=== PATIENT | male | born 1960 | race Caucasian/White ===

== ENCOUNTER 2017-04-13 19:54 | Emergency (ER) | payer BC, SELFPAY ==
[2017-04-13 20:48] VITALS: BP 119/75; PULSE 98; RESP 18; TEMP 37.7; O2SAT 96; BMI 29.1
--- NOTE | 2017-04-13 20:53 | HMH.EDUTC ---
[facility] [place] Impression: Fever in adult, Influenza Disposition: Home, Self-Care Condition on Discharge: Good Instructions: DI for Fever (Symptom) -- Adult, Influenza Additional Instructions: ? Start Tamiflu today if you are going to take it. Discussed risk and possible benefits. ? Lots of rest ? Increase Fluids water, Gatorade, powerade, pedialyte,if infant/toddler/child ? Alternate Tylenol and / or ibuprofen as discussed for fever, aches, chills x 24 hours without medication for symptoms ? Follow up IMMEDIATELY for new or worsening Symptoms OR no noticeable improvement over the next 48-72 hours, 911 for difficulty or breathing ? You or your child area contagious until no fever, aches, chills for 24 hours with medication for symptoms Prescriptions: Dextromethorphan Polistirex [Delsym] 10 ml PO Q12H PRN #200 stew.[email or web address] PRN Reason: Cough Oseltamivir Phosphate [Tamiflu 75mg Capsule] 75 mg PO BID #10 capsule Referrals: Eduardo Daly MD [Primary Care Provider] - Time of Disposition: 21:05 Medical Decision Making Vital Signs: 04/13/17 20:48 Temperature 99.8 F H Temperature Source Temporal Artery Scan Pulse Rate [Left Brachial] 98 H Respiratory Rate 18 Blood Pressure [Left Arm] 119/75 Blood Pressure Mean [Left Arm] 89 Blood Pressure Source [Left Arm] Automatic Cuff Blood Pressure Position [Left Arm] Sitting 02 Sat by Pulse Oximetry 96 Oxygen Delivery Method Room Air - Tarik Inquiry Pt receiving controlled substance: No Tarik was queried for this patient: No [facility] [place] - General Stated complaint: Fever, Body Aches Mode of Arrival: Ambulatory Source of Information: Patient Limitations: No Limitations Description of Symptoms (Recalled from Triage Doc. by RN): C/O SORE THROAT AND FEVER HEENT Symptoms (Recalled from RN notes): Yes (SORE THROAT) Resp Symptoms (Recalled from RN notes): No Skin Symptoms (Recalled from RN notes): No MS Symptoms (Recalled from RN notes): No Functional Status (Recalled from RN notes): N/A - History of Present Illness Provider Complaint: Patient states that he woke up this morning having fever, sore throat and body aches States that he went on to work and as the day went on his fever continued to get higher and was 103.2 at about 3pm and he took Tylenol State that he laid down and began having body aches and feeling worse and fever returned so he came in to get checked - Related Data Home Medications Medication Instructions Recorded Confirmed losartan 50 mg tablet 50 mg PO QDAY 04/12/17 mesalamine 800 mg tablet,delayed PO .Q24 tab 04/12/17 release metformin 500 mg tablet 500 mg PO QDAY tab 04/12/17 Previous Rx's Medication Instructions Recorded Dextromethorphan Polistirex 10 ml PO Q12H PRN #200 stew.er.12h 04/13/17 [Delsym] Oseltamivir Phosphate [Tamiflu 75 mg PO BID #10 cap 04/13/17 75mg Capsule] Allergies Allergy/AdvReac Type Severity Reaction Status Date / Time Penicillins [PENICILLINS] Allergy Mild Unverified 03/22/17 14:58 - Worker's Comp Is this a Worker's Comp case?: No [facility] History I have reviewed the patient's past medical history: Yes Medical History: Reports:: Diabetes Mellitus Type 2, Kidney Stones Amputation: No Fractures: No - *Social History Smoking Status: Never smoker Alcohol Intake: never Occupational Status: employed Housing: house Household Members: spouse - Psychiatric History Expresses thoughts of harming self/others: None Suicide Plan Description: No Plan ROS Obtained: Yes All systems reviewed & no additional complaints - Constitutional Constitutional: Reports chills, Reports fever(s) - ENT Ears, Nose, Mouth, and Throat: Reports sinus pain - Respiratory Respiratory: Yes cough Physical Exam - General General appearance: alert, in no apparent distress - Expanded ENT Exam Comment: throat red, irritated, no exudate noted - Respiratory Respiratory exam: Present: normal lung
--- NOTE | 2017-04-13 20:56 | ED_ITS ---
[facility] [place] Impression: Fever in adult, Influenza Disposition: Home, Self-Care Condition on Discharge: Good Instructions: DI for Fever (Symptom) -- Adult, Influenza Additional Instructions: ? Start Tamiflu today if you are going to take it. Discussed risk and possible benefits. ? Lots of rest ? Increase Fluids water, Gatorade, powerade, pedialyte,if infant/toddler/child ? Alternate Tylenol and / or ibuprofen as discussed for fever, aches, chills x 24 hours without medication for symptoms ? Follow up IMMEDIATELY for new or worsening Symptoms OR no noticeable improvement over the next 48-72 hours, 911 for difficulty or breathing ? You or your child area contagious until no fever, aches, chills for 24 hours with medication for symptoms Prescriptions: Dextromethorphan Polistirex [Delsym] 10 ml PO Q12H PRN #200 stew.er.12h PRN Reason: Cough Oseltamivir Phosphate [Tamiflu 75mg Capsule] 75 mg PO BID #10 capsule Referrals: Eduardo Daly MD [Primary Care Provider] - Time of Disposition: 21:05 Medical Decision Making Vital Signs: 04/13/17 20:48 Temperature 99.8 F H Temperature Source Temporal Artery Scan Pulse Rate [Left Brachial] 98 H Respiratory Rate 18 Blood Pressure [Left Arm] 119/75 Blood Pressure Mean [Left Arm] 89 Blood Pressure Source [Left Arm] Automatic Cuff Blood Pressure Position [Left Arm] Sitting 02 Sat by Pulse Oximetry 96 Oxygen Delivery Method Room Air - Tarik Inquiry Pt receiving controlled substance: No Tarik was queried for this patient: No [facility] [place] - General Stated complaint: Fever, Body Aches Mode of Arrival: Ambulatory Source of Information: Patient Limitations: No Limitations Description of Symptoms (Recalled from Triage Doc. by RN): C/O SORE THROAT AND FEVER HEENT Symptoms (Recalled from RN notes): Yes (SORE THROAT) Resp Symptoms (Recalled from RN notes): No Skin Symptoms (Recalled from RN notes): No MS Symptoms (Recalled from RN notes): No Functional Status (Recalled from RN notes): N/A - History of Present Illness Provider Complaint: Patient states that he woke up this morning having fever, sore throat and body aches States that he went on to work and as the day went on his fever continued to get higher and was 103.2 at about 3pm and he took Tylenol State that he laid down and began having body aches and feeling worse and fever returned so he came in to get checked - Related Data Home Medications Medication Instructions Recorded Confirmed losartan 50 mg tablet 50 mg PO QDAY 04/12/17 mesalamine 800 mg tablet,delayed PO .Q24 tab 04/12/17 release metformin 500 mg tablet 500 mg PO QDAY tab 04/12/17 Previous Rx's Medication Instructions Recorded Dextromethorphan Polistirex 10 ml PO Q12H PRN #200 stew.er.12h 04/13/17 [Delsym] Oseltamivir Phosphate [Tamiflu 75 mg PO BID #10 cap 04/13/17 75mg Capsule] Allergies Allergy/AdvReac Type Severity Reaction Status Date / Time Penicillins [PENICILLINS] Allergy Mild Unverified 03/22/17 14:58 - Worker's Comp Is this a Worker's Comp case?: No [facility] History I have reviewed the patient's past medical history: Yes Medical History: Reports:: Diabetes Mellitus Type 2, Kidney Stones Amputation: No Fractures: No - *Social History Smoking Status: Never smoker Alcoho
[2017-04-13 21:11] VITALS: BP 119/75; PULSE 98; RESP 18; TEMP 37.7; O2SAT 96
[2017-04-19 15:09] LABS: UTC Influenza A Antigen Positive (Negative); UTC Influenza B Antigen Negative (Negative)
[2017-04-19 15:40] LABS: UTC Strep Screen (Rapid) Negative (Negative)
== END 2017-04-13 21:12 | disposition home or self-care (01) ==
PROVIDERS: Emergency Provider Nurse Practitioner; Family Provider Family Medicine; PCP Family Medicine
DX: J10.1 Influenza due to other identified influenza virus with other respiratory manifestations (principal); Z79.84 Long term (current) use of oral hypoglycemic drugs; Z88.0 Allergy status to penicillin
CPT/HCPCS: 87804; 87880; 99202

== ENCOUNTER → 2017-09-13 11:31 | Outpatient (POV) | payer BC, SELFPAY ==
[2017-09-13 11:47] VITALS: BP 127/93; PULSE 82; RESP 18; O2SAT 98
--- NOTE | 2017-09-13 12:09 | HMH.PMCON ---
Assessment and Plan (1) Piriformis syndrome of left side Current visit: Yes Status: Chronic Category: Medical Code(s): G57.02 - Lesion of sciatic nerve, left lower limb - Assessment and plan all Dx Assessment and Plan for all problems:: Schedule the patient for left piriformis nerve block. I believe that this would be beneficial given his symptomology. Patient has tried stretching therapy and anti-inflammatories. I will follow-up with the patient after his piriformis block on the left side. We will reassess his symptoms at that time. This note was dictated using voice recognition software and may contain errors or omissions HPI - Data of Consult Consult date: 09/13/17 Requesting Physician: Leatha Beltran APRN Primary Care Provider: Hood Daly MD Family Provider: Hood Daly MD - Consult Narrative Reason for consult: Sciatic pain on the left side History of present illness: Mr. Brand is a 57 year old male who presents for consultation in regards to his left hip and sciatic pain. Patient was eating weedeater couple weeks ago and began having increased pain pain originates in the lower buttock and runs down his leg. Patient states his pain today is a 0 out of 10 while he is sitting. Patient states it can increase while he is working or moving. Patient states walking long periods makes it worse while resting makes it better. Patient did have a round of oral steroids that did help somewhat. Patient is interested in potential injective therapy. CC: Leatha Beltran APRN [facility] History I have reviewed the patient's past medical history: Yes Medical History: Reports:: Diabetes Mellitus Type 2, Hypertension, Kidney Stones Amputation: No Fractures: No - *Social History Educational Level: Attended College Smoking Status: Never smoker Alcohol Intake: never Occupational Status: employed Housing: house Household Members: spouse - Psychiatric History Expresses thoughts of harming self/others: None Suicide Plan Description: No Plan *Family Hx:: Unable to obtain Review of Systems - Review of Systems ROS General: no recent weight change, no fever, no sleep disturbances Respiratory: no cough, no shortness of air, no recurring pulmonary infections Cardiovascular/Peripheral Vascular: No chest pain, No palpitations, no edema, no shortness of breath. Gastrointestinal: no incontinence, normal bowel movements reported Genitourinary: no incontinence Musculoskeletal: Left sciatic pain Psychiatric: normal mood/ affect Neurological: [denies weakness in extremities], [denies balance issues] Meds Home Medications Medication Instructions Recorded Confirmed Type losartan 50 mg tablet 50 mg PO QDAY 04/12/17 History mesalamine 800 mg tablet,delayed PO .Q24 tab 04/12/17 History release metformin 500 mg tablet 500 mg PO QDAY tab 04/12/17 History Cyclobenzaprine HCl [Flexeril 10mg 10 mg PO NEEDED PRN 09/13/17 09/13/17 History tablet] Allergies Allergy/AdvReac Type Severity Reaction Status Date / Time Penicillins [PENICILLINS] Allergy Mild Unverified 03/22/17 14:58 Objective Vital signs: Pulse Resp BP Pulse Ox 82 18 127/93 98 09/13/17 11:47 09/13/17 11:47 09/13/17 11:47 09/13/17 11:47 Narrative: Physical Exam General: Alert and oriented x3, no acute distress, pleasant and cooperative, [on room air] Lungs: Resps E/U, Symmetrical chest expansion, Eyes: PERRL Musculoskeletal: Flexion and extension of lumbar spine somewhat guarded secondary to pain, deep tendon reflexes normal, strength in upper and lower extremities [5/5], normal gait noted, extreme point tenderness over left piriformis Neurological: speech clear, toddler guide equal, no gross sensory deficits Opioid Risk Tool - Opioid Risk Tool-Male Family hx alcohol abuse: N Family hx illegal drugs: N Family hx rx drug abuse: N Personal hx alcohol abuse: N Personal hx
--- NOTE | 2017-09-13 12:34 | P.CONS_ITS ---
Assessment and Plan (1) Piriformis syndrome of left side Current visit: Yes Status: Chronic Category: Medical Code(s): G57.02 - Lesion of sciatic nerve, left lower limb - Assessment and plan all Dx Assessment and Plan for all problems:: Schedule the patient for left piriformis nerve block. I believe that this would be beneficial given his symptomology. Patient has tried stretching therapy and anti-inflammatories. I will follow-up with the patient after his piriformis block on the left side. We will reassess his symptoms at that time. This note was dictated using voice recognition software and may contain errors or omissions HPI - Data of Consult Consult date: 09/13/17 Requesting Physician: Leatha Beltran APRN Primary Care Provider: Hood Daly MD Family Provider: Hood Daly MD - Consult Narrative Reason for consult: Sciatic pain on the left side History of present illness: Mr. Brand is a 57 year old male who presents for consultation in regards to his left hip and sciatic pain. Patient was eating weedeater couple weeks ago and began having increased pain pain originates in the lower buttock and runs down his leg. Patient states his pain today is a 0 out of 10 while he is sitting. Patient states it can increase while he is working or moving. Patient states walking long periods makes it worse while resting makes it better. Patient did have a round of oral steroids that did help somewhat. Patient is interested in potential injective therapy. CC: Leatha Beltran APRN [facility] History I have reviewed the patient's past medical history: Yes Medical History: Reports:: Diabetes Mellitus Type 2, Hypertension, Kidney Stones Amputation: No Fractures: No - *Social History Educational Level: Attended College Smoking Status: Never smoker Alcohol Intake: never Occupational Status: employed Housing: house Household Members: spouse - Psychiatric History Expresses thoughts of harming self/others: None Suicide Plan Description: No Plan *Family Hx:: Unable to obtain Review of Systems - Review of Systems ROS General: no recent weight change, no fever, no sleep disturbances Respiratory: no cough, no shortness of air, no recurring pulmonary infections Cardiovascular/Peripheral Vascular: No chest pain, No palpitations, no edema, no shortness of breath. Gastrointestinal: no incontinence, normal bowel movements reported Genitourinary: no incontinence Musculoskeletal: Left sciatic pain Psychiatric: normal mood/ affect Neurological: [denies weakness in extremities], [denies balance issues] Meds Home Medications Medication Instructions Recorded Confirmed Type losartan 50 mg tablet 50 mg PO QDAY 04/12/17 History mesalamine 800 mg tablet,delayed PO .Q24 tab 04/12/17 History release metformin 500 mg tablet 500 mg PO QDAY tab 04/12/17 History Cyclobenzaprine HCl [Flexeril 10mg 10 mg PO NEEDED PRN 09/13/17 09/13/17 History tablet] Allergies Allergy/AdvReac Type Severity Reaction Status Date / Time Penicillins [PENICILLINS] Allergy Mild Unverified 03/22/17 14:58 Objective Vital signs: Pulse Resp BP Pulse Ox 82 18 127/93 98 09/13/17 11:47 09/13/17 11:47 09/13/17 11:47 09/13/17 11:47 Narrative: Physical Exam General: Alert and oriented x3, no
== END ==
PROVIDERS: Family Provider Family Medicine; PCP Family Medicine; Visit Provider Clinical Nurse Specialist Family Health
DX: G57.02 Lesion of sciatic nerve, left lower limb (principal)
CPT/HCPCS: 99202

== ENCOUNTER 2017-09-20 12:28 | Day surgery (SDC) | payer BC, SELFPAY ==
[2017-09-20 12:44] VITALS: BP 157/99; PULSE 68; RESP 18; O2SAT 98; BMI 29.1
[2017-09-20 13:08] VITALS: BP 132/78; PULSE 85; RESP 18
[2017-09-20 13:09] VITALS: BP 135/78; PULSE 88; RESP 18; O2SAT 98
--- NOTE | 2017-09-20 13:10 | HMH.PMPROC ---
- Procedure Date: 09/20/17 Time: 13:10 Anesthesiologist:: Leatha Beltran APRN Complications:: None Pre-procedure Diagnosis:: Piriformis syndrome, myofascial pain syndrome Post-procedure Diagnosis:: Same Indications for Procedure:: Patient is a pleasant 57-year-old white male who presents for left piriformis injection. Patient was weed eating a couple weeks ago and began having increased pain. Patient pain originates over the lower buttock and runs down his left leg. Patient states that it comes and go intermittently. Patient states that moving and working increases the pain. Patient is doing a little bit better however he presents today for an injection to try to maximize his pain relief. Physical Exam General: Alert and oriented x3, no acute distress, pleasant and cooperative, [on room air] Lungs: Resps E/U, Symmetrical chest expansion, Eyes: PERRL Musculoskeletal: Range of motion left leg somewhat guarded secondary to pain, deep tendon reflexes normal, strength in upper and lower extremities [5/5], normal gait noted, extreme point tenderness over piriformis on left side Neurological: speech clear, postmaster equal, no gross sensory deficits Procedure Details:: After informed consent was obtained the patient was taken to the procedure suite and placed in prone position. The area of maximal tenderness was identified. The skin overlying the left gluteal region was prepped with ChloraPrep and draped in sterile fashion. Strict aseptic technique was observed throughout the procedure. A 22-gauge spinal needle was passed to the area of the piriformis. 3 mL's of solution containing 0.25% bupivacaine and 40 mg of Depo-Medrol were injected into 2 locations in the musculature. The patient tolerated this well without complications. On examination after procedure, 80% pain relief was reported Plan and Disposition:: We will follow-up with the patient in 2 weeks and reassess his symptoms at that time. Patient's been instructed to call the office if he has any issues prior to his next appointment. This note was dictated using voice recognition software and may contain errors or omissions
[2017-09-20 13:15] VITALS: BP 134/93; PULSE 73; RESP 18; O2SAT 99
--- NOTE | 2017-09-20 13:17 | P.PCN_ITS ---
- Procedure Date: 09/20/17 Time: 13:10 Anesthesiologist:: Leatha Beltran APRN Complications:: None Pre-procedure Diagnosis:: Piriformis syndrome, myofascial pain syndrome Post-procedure Diagnosis:: Same Indications for Procedure:: Patient is a pleasant 57-year-old white male who presents for left piriformis injection. Patient was weed eating a couple weeks ago and began having increased pain. Patient pain originates over the lower buttock and runs down his left leg. Patient states that it comes and go intermittently. Patient states that moving and working increases the pain. Patient is doing a little bit better however he presents today for an injection to try to maximize his pain relief. Physical Exam General: Alert and oriented x3, no acute distress, pleasant and cooperative, [ on room air] Lungs: Resps E/U, Symmetrical chest expansion, Eyes: PERRL Musculoskeletal: Range of motion left leg somewhat guarded secondary to pain, deep tendon reflexes normal, strength in upper and lower extremities [5/5], normal gait noted, extreme point tenderness over piriformis on left side Neurological: speech clear, crystallography teacher equal, no gross sensory deficits Procedure Details:: After informed consent was obtained the patient was taken to the procedure suite and placed in prone position. The area of maximal tenderness was identified. The skin overlying the left gluteal region was prepped with ChloraPrep and draped in sterile fashion. Strict aseptic technique was observed throughout the procedure. A 22-gauge spinal needle was passed to the area of the piriformis. 3 mL's of solution containing 0.25% bupivacaine and 40 mg of Depo-Medrol were injected into 2 locations in the musculature. The patient tolerated this well without complications. On examination after procedure, 80% pain relief was reported Plan and Disposition:: We will follow-up with the patient in 2 weeks and reassess his symptoms at that time. Patient's been instructed to call the office if he has any issues prior to his next appointment. This note was dictated using voice recognition software and may contain errors or omissions
== END 2017-09-20 13:15 | disposition home or self-care (01) ==
LOC: SC.PAINP 12:29
PROVIDERS: Family Provider Family Medicine; PCP Family Medicine; Visit Provider Clinical Nurse Specialist Family Health
DX: G57.02 Lesion of sciatic nerve, left lower limb (principal)
CPT/HCPCS: 20552; J1040

== ENCOUNTER → 2017-10-10 15:29 | Outpatient (POV) | payer BC, SELFPAY ==
[2017-10-10 16:02] VITALS: BP 144/98; PULSE 94; RESP 18; O2SAT 98; BMI 30.1
--- NOTE | 2017-10-11 08:59 | HMH.PAINSOAP ---
[facility] Pain Management SOAP Note Subjective:: Patient is a pleasant 57-year-old white male who presents today for follow-up after his left piriformis injection. Patient states that he did not get much relief from his injection however his pain today is a 1 out of 10. Patient states he gets shooting pain at nighttime underneath his left buttock but that is when the pain is most severe. Patient is on an anti-inflammatory and he states that this helps more than anything. I encouraged him to continue this. ROS General: no recent weight change, no fever, no sleep disturbances Respiratory: no cough, no shortness of air, no recurring pulmonary infections Cardiovascular/Peripheral Vascular: No chest pain, No palpitations, no edema, no shortness of breath. Gastrointestinal: no incontinence, normal bowel movements reported Genitourinary: no incontinence Musculoskeletal: Left piriformis pain Psychiatric: normal mood/ affect Neurological: [denies weakness in extremities], [denies balance issues] Objective:: Physical Exam General: Alert and oriented x3, no acute distress, pleasant and cooperative, [on room air] Lungs: Resps E/U, Symmetrical chest expansion, Eyes: PERRL Musculoskeletal:deep tendon reflexes normal, strength in upper and lower extremities [5/5], normal gait noted Neurological: speech clear, transistor tester equal, no gross sensory deficits Assessment:: Piriformis syndrome, myofascial pain syndrome Plan:: Patient and I had a discussion in regards to her plan of treatment. We will start the patient on gabapentin 100 mg 1 tab at bedtime and see if this helps with his shooting pains. Patient is going to continue on his sulindac and if he needs refills on this I be happy to refill it. Follow-up with this patient in 1 month and reassess his symptoms at that time. This note was dictated using voice recognition software and may contain errors or omissions
--- NOTE | 2017-10-11 09:02 | P.CONS_ITS ---
[facility] Pain Management SOAP Note Subjective:: Patient is a pleasant 57-year-old white male who presents today for follow-up after his left piriformis injection. Patient states that he did not get much relief from his injection however his pain today is a 1 out of 10. Patient states he gets shooting pain at nighttime underneath his left buttock but that is when the pain is most severe. Patient is on an anti-inflammatory and he states that this helps more than anything. I encouraged him to continue this. ROS General: no recent weight change, no fever, no sleep disturbances Respiratory: no cough, no shortness of air, no recurring pulmonary infections Cardiovascular/Peripheral Vascular: No chest pain, No palpitations, no edema, no shortness of breath. Gastrointestinal: no incontinence, normal bowel movements reported Genitourinary: no incontinence Musculoskeletal: Left piriformis pain Psychiatric: normal mood/ affect Neurological: [denies weakness in extremities], [denies balance issues] Objective:: Physical Exam General: Alert and oriented x3, no acute distress, pleasant and cooperative, [ on room air] Lungs: Resps E/U, Symmetrical chest expansion, Eyes: PERRL Musculoskeletal:deep tendon reflexes normal, strength in upper and lower extremities [5/5], normal gait noted Neurological: speech clear, flower planter equal, no gross sensory deficits Assessment:: Piriformis syndrome, myofascial pain syndrome Plan:: Patient and I had a discussion in regards to her plan of treatment. We will start the patient on gabapentin 100 mg 1 tab at bedtime and see if this helps with his shooting pains. Patient is going to continue on his sulindac and if he needs refills on this I be happy to refill it. Follow-up with this patient in 1 month and reassess his symptoms at that time. This note was dictated using voice recognition software and may contain errors or omissions
== END ==
PROVIDERS: Family Provider Family Medicine; PCP Family Medicine; Visit Provider Clinical Nurse Specialist Family Health
DX: M54.30 Sciatica, unspecified side (principal)
CPT/HCPCS: 99212

== ENCOUNTER → 2018-06-02 13:06 | Outpatient (CLI) | payer BC, SELFPAY ==
--- NOTE | 2018-06-02 13:11 | MR_ITS ---
MR lumbar spine wo con, MR 3-d myelogram/MRCP HISTORY: LT leg pain that radiates to knee. Numbness in LT foot since last surgery. ITS.REASON: SCIATICA OF LEFT SIDE ORDERING PHYSICIAN: Hood Daly MD PATIENT AGE: 58 years Comparison: MRI 12-19-14. TECHNIQUE: Standard multiplanar multiecho sequences are performed without contrast. 3-D MIP and myelographic images are also rendered and reviewed FINDINGS: There is normal alignment. Spinal cord ends at the T12-L1 level. There is mild lumbar scoliosis convex right T12-L1: Small central disc herniation without impingement. Not significantly changed L1-L2: Unremarkable. L2-L3: There is degenerative disc disease at this level with bulging disc. There is a medium to large sized central/left paracentral disc herniation with inferior extrusion. The extruded portion of the disc extends inferiorly 4 16-mm causing impingement upon the left aspect of the thecal sac and the nerve roots centrally and on the left with severe left lateral recess narrowing. This has developed compared to the previous exam. There is moderate left-sided foraminal narrowing from the bulging disc and facet hypertrophy. L3-L4: Degenerative disc disease with bulging disc along with facet and ligamentum flavum hypertrophy with moderate right and severe left-sided foraminal narrowing. Previously there was a extruded disc at this region which is no longer apparent. There are postsurgical changes from left laminectomy. L4-L5: Mild concentric bulging disc with facet and ligamentum flavum hypertrophy with mild bilateral foraminal narrowing. L5-S1: Grade 1 spondylitic spondylolisthesis with 6 mm anterolisthesis of L5 on S1 with bulging disc along with facet and ligamentum flavum hypertrophy with moderate bilateral foraminal narrowing similar to the previous exam. IMPRESSION: 1. T12-L1: Small central disc herniation without impingement. Not significantly changed 2. L2-L3: There is degenerative disc disease at this level with bulging disc. There is a medium to large sized central/left paracentral disc herniation with inferior extrusion. The extruded portion of the disc extends inferiorly 4 16-mm causing impingement upon the left aspect of the thecal sac and the nerve roots centrally and on the left with severe left lateral recess narrowing. This has developed compared to the previous exam. There is moderate left-sided foraminal narrowing from the bulging disc and facet hypertrophy. 3. L3-L4: Degenerative disc disease with bulging disc along with facet and ligamentum flavum hypertrophy with moderate right and severe left-sided foraminal narrowing. Previously there was a extruded disc at this region which is no longer apparent. There are postsurgical changes from left laminectomy. 4. L5-S1: Grade 1 spondylitic spondylolisthesis with 6 mm anterolisthesis of L5 on S1 with bulging disc along with facet and ligamentum flavum hypertrophy with moderate bilateral foraminal narrowing similar to the previous exam.
== END ==
PROVIDERS: PCP Family Medicine; Visit Provider Family Medicine
DX: M54.32 Sciatica, left side (principal)
CPT/HCPCS: 72148; 76376

== ENCOUNTER 2018-07-13 15:30 | Outpatient (RCR) | payer BC, SELFPAY | END 2018-07-13 15:35 | disposition home or self-care (01) | LOC: PT 15:30 | PROVIDERS: Visit Provider Neurological Surgery | DX: M54.30 Sciatica, unspecified side (principal); M54.5 Low back pain | CPT/HCPCS: 97010; 97012; 97014; 97110; 97163; G0283 ==

== ENCOUNTER → 2019-03-13 09:31 | Outpatient (POV) | payer BC, SELFPAY ==
[2019-03-13 10:01] VITALS: BP 150/93; PULSE 89; RESP 18; O2SAT 98; BMI 29.5
--- NOTE | 2019-03-13 10:11 | HMH.PAINSOAP ---
[facility] Pain Management SOAP Note Subjective:: Patient is a pleasant 59-year-old white male who presents today for follow-up. Patient had a left piriformis injection in the past with not much relief. Patient is presenting today with a pain in his lower back and radiating down his left leg. He rates his pain a 1 out of 10 however by the end of the day it becomes quite painful. Patient has completed physical therapy. He has been seen by a surgeon however he would like to try interventional means of controlling his pain prior to any decision on surgery. He is on anti-inflammatories. He has had pain for over a year. ROS General: no recent weight change, no fever, no sleep disturbances Respiratory: no cough, no shortness of air, no recurring pulmonary infections Cardiovascular/Peripheral Vascular: No chest pain, No palpitations, no edema, no shortness of breath. Gastrointestinal: no new onset incontinence, normal bowel movements reported Genitourinary: no new onset incontinence Musculoskeletal: Back pain, leg pain Psychiatric: normal mood/ affect Neurological: [denies new onset weakness in extremities], [denies new onset balance issues] Objective:: Physical Exam General: Alert and oriented x3, no acute distress, pleasant and cooperative, [on room air] Lungs: Resps E/U, Symmetrical chest expansion, Eyes: PERRL Musculoskeletal: Flexion and extension of lumbar spine somewhat guarded secondary to pain, deep tendon reflexes normal, strength in upper and lower extremities [5/5], slightly antalgic gait noted positive straight leg raise test on the left side Neurological: speech clear, branch account executive equal, no gross sensory deficits Assessment:: Degenerative disc disease lumbar spine with lumbar radiculopathy Plan:: We will schedule L4-L5 epidural steroid injection for the patient. Patient's not on any anticoagulation therapy. I will follow-up with the patient after the injection and reassess his symptoms at that time he is been instructed to call the office if he has any issues prior to his next appointment. Dr. Marsh has reviewed this note and agrees with this plan of care. This note was dictated using voice recognition software and may contain errors or omissions [facility] History I have reviewed the patient's past medical history: Yes Medical History: Reports:: Diabetes Mellitus Type 2, Hypertension, Kidney Stones Denies:: Cancer, Diabetes Mellitus Type 1, MRSA, Seizures *Have you ever received a pneumonia vaccine?: Yes *Have you received a flu vaccine this season?: Yes Other Surgeries: Yes: Other (back surgery) Amputation: No Fractures: No - *Social History Smoking Status: Never smoker Alcohol Intake: never *Occupational Status:: other Housing: house Household Members: spouse *Travel in the last 8 weeks: None Family Hx:: Unable to obtain
--- NOTE | 2019-03-13 10:15 | P.CONS_ITS ---
[facility] Pain Management SOAP Note Subjective:: Patient is a pleasant 59-year-old white male who presents today for follow-up. Patient had a left piriformis injection in the past with not much relief. Patient is presenting today with a pain in his lower back and radiating down his left leg. He rates his pain a 1 out of 10 however by the end of the day it becomes quite painful. Patient has completed physical therapy. He has been seen by a surgeon however he would like to try interventional means of controlling his pain prior to any decision on surgery. He is on anti- inflammatories. He has had pain for over a year. ROS General: no recent weight change, no fever, no sleep disturbances Respiratory: no cough, no shortness of air, no recurring pulmonary infections Cardiovascular/Peripheral Vascular: No chest pain, No palpitations, no edema, no shortness of breath. Gastrointestinal: no new onset incontinence, normal bowel movements reported Genitourinary: no new onset incontinence Musculoskeletal: Back pain, leg pain Psychiatric: normal mood/ affect Neurological: [denies new onset weakness in extremities], [denies new onset balance issues] Objective:: Physical Exam General: Alert and oriented x3, no acute distress, pleasant and cooperative, [on room air] Lungs: Resps E/U, Symmetrical chest expansion, Eyes: PERRL Musculoskeletal: Flexion and extension of lumbar spine somewhat guarded secondary to pain, deep tendon reflexes normal, strength in upper and lower extremities [5/5], slightly antalgic gait noted positive straight leg raise test on the left side Neurological: speech clear, back hoe operator equal, no gross sensory deficits Assessment:: Degenerative disc disease lumbar spine with lumbar radiculopathy Plan:: We will schedule L4-L5 epidural steroid injection for the patient. Patient's not on any anticoagulation therapy. I will follow-up with the patient after the injection and reassess his symptoms at that time he is been instructed to call the office if he has any issues prior to his next appointment. Dr. Marsh has reviewed this note and agrees with this plan of care. This note was dictated using voice recognition software and may contain errors or omissions [facility] History I have reviewed the patient's past medical history: Yes Medical History: Reports:: Diabetes Mellitus Type 2, Hypertension, Kidney Stones Denies:: Cancer, Diabetes Mellitus Type 1, MRSA, Seizures *Have you ever received a pneumonia vaccine?: Yes *Have you received a flu vaccine this season?: Yes Other Surgeries: Yes: Other (back surgery) Amputation: No Fractures: No - *Social History Smoking Status: Never smoker Alcohol Intake: never *Occupational Status:: other Housing: house Household Members: spouse *Travel in the last 8 weeks: None Family Hx:: Unable to obtain
== END ==
PROVIDERS: PCP Family Medicine; Visit Provider Clinical Nurse Specialist Family Health
DX: M51.16 Intervertebral disc disorders with radiculopathy, lumbar region (principal)
CPT/HCPCS: 99212

== ENCOUNTER → 2019-04-30 14:57 | Outpatient (POV) | payer BC, SELFPAY ==
[2019-04-30 15:13] VITALS: BP 135/89; PULSE 78; RESP 18; O2SAT 98; BMI 29.4
--- NOTE | 2019-04-30 15:27 | P.CONS_ITS ---
[facility] Pain Management SOAP Note Subjective:: Patient is a pleasant 59-year-old white male who presents today for follow-up after lumbar epidural steroid injection. Patient had 100% relief of his symptomology for over 3 weeks. Patient is started to have his pain return. He would like to repeat his lumbar epidural steroid injection. He is not on any anticoagulation therapy. He is continuing a home stretching program. ROS General: no recent weight change, no fever, no sleep disturbances Respiratory: no cough, no shortness of air, no recurring pulmonary infections Cardiovascular/Peripheral Vascular: No chest pain, No palpitations, no edema, no shortness of breath. Gastrointestinal: no new onset incontinence, normal bowel movements reported Genitourinary: no new onset incontinence Musculoskeletal: Back pain, leg pain Psychiatric: normal mood/ affect Neurological: [denies new onset weakness in extremities], [denies new onset b alance issues] Objective:: Physical Exam General: Alert and oriented x3, no acute distress, pleasant and cooperative, slightly antalgic gait noted Lungs: Resps E/U, Symmetrical chest expansion, Eyes: PERRL Musculoskeletal: Flexion and extension of lumbar spine somewhat guarded secondary to pain, deep tendon reflexes normal, strength in upper and lower extremities [5/5], [abnormal gait noted] Neurological: speech clear, paper cone machine operator equal, no gross sensory deficits Assessment:: Degenerative disc disease lumbar spine with lumbar radiculopathy Plan:: We will schedule repeat L4-L5 lumbar epidural steroid injection for the patient. Given the efficacy of this in the past I do believe it would be beneficial for him. I will follow-up with him after this reassess his symptoms at that time he has been instructed to call the office if he has any issues prior to his next appointment. Dr. Marsh has reviewed this note and agrees with this plan of care. This note was dictated using voice recognition software and may contain errors or omissions [facility] History I have reviewed the patient's past medical history: Yes Medical History: Reports:: Diabetes Mellitus Type 2, Hypertension, Kidney Stones Denies:: Cancer, Diabetes Mellitus Type 1, MRSA, Seizures *Have you ever received a pneumonia vaccine?: Yes *Have you received a flu vaccine this season?: Yes Other Surgeries: Yes: Other (back surgery) Amputation: No Fractures: No - *Social History Smoking Status: Never smoker Alcohol Intake: never *Occupational Status:: other Housing: house Household Members: spouse *Travel in the last 8 weeks: None Family Hx:: Unable to obtain
== END ==
PROVIDERS: PCP Family Medicine; Visit Provider Clinical Nurse Specialist Family Health
DX: M51.16 Intervertebral disc disorders with radiculopathy, lumbar region (principal); E11.9 Type 2 diabetes mellitus without complications; I10 Essential (primary) hypertension; Z87.442 Personal history of urinary calculi
CPT/HCPCS: 99212

== ENCOUNTER 2020-04-19 11:59 | Emergency (ER) | payer BC, SELFPAY ==
[2020-04-19 12:10] VITALS: BP 125/100; PULSE 97; RESP 14; TEMP 36.9; O2SAT 100; BMI 29.2
--- NOTE | 2020-04-19 12:15 | HMH.EDUTC ---
[facility] [place] Clinical Impression: Exposure to COVID-19 virus Sinusitis Qualifiers: Sinusitis location: unspecified location Chronicity: acute Recurrence: non-recurrent Qualified Code(s): J01.90 - Acute sinusitis, unspecified Disposition: Home, Self-Care Condition on Discharge: Good Instructions: DI for COVID-19 (Suspected or Confirmed ), Preventing the Spread of Coronavirus Discharge Instructions Additional Instructions: Drink plenty of fluids. Take tylenol for pain or fever. Return if you begin to have difficulty breathing. Follow up with your regular doctor. GO TO THE ER FOR ANY WORSENING SYMPTOMS Prescriptions: Azithromycin [Z-Stoney 250mg Tab*] 250 mg PO UD DOSE PK #6 tab Transmission Status: Received by [id number] Referrals: Hood Daly MD [Primary Care Provider] - Time of Disposition: 12:30 Medical Decision Making - Medical Records Medical records reviewed: No: I reviewed the patient's medical records. - Tarik Inquiry Pt receiving controlled substance: No Vital Signs: 04/19/20 12:10 04/19/20 12:40 Temperature 98.5 F 98.5 F Temperature Source Oral Pulse Rate 97 H Pulse Rate [Right Brachial] 97 H Respiratory Rate 14 14 Blood Pressure 125/100 H Blood Pressure [Right Arm] 125/100 H Blood Pressure Mean [Right Arm] 108 Blood Pressure Source [Right Arm] Automatic Cuff Blood Pressure Position [Right Arm] Sitting 02 Sat by Pulse Oximetry 100 Oxygen Delivery Method Room Air [facility] [place] HPI - General Stated complaint: COVID EXPOSURE Time Seen by Provider: 04/19/20 12:24 - History of Present Illness Provider Complaint: He states that since yesterday evening, he has been developing a head ache and sinus congestion. He has been exposed to covid at his work place. - Related Data Home Medications Medication Instructions Recorded Confirmed losartan 50 mg tablet 50 mg PO QDAY 04/12/17 09/20/17 mesalamine 800 mg tablet,delayed 800 mg PO .Q24 tab 04/12/17 09/20/17 release metformin 500 mg tablet 500 mg PO QDAY tab 04/12/17 09/20/17 Cyclobenzaprine HCl [Flexeril 10mg 10 mg PO NEEDED PRN 09/13/17 09/20/17 tablet] Previous Rx's Medication Instructions Recorded Azithromycin [Z-Stoney 250mg Tab*] 250 mg PO UD DOSE PK #6 tab 04/19/20 Allergies Allergy/AdvReac Type Severity Reaction Status Date / Time Penicillins [PENICILLINS] Allergy Mild Verified 09/20/17 12:47 [facility] History - Hepatitis A Screen Attestation statement:: This patient has been screened for Hepatitis A risk factors. I have reviewed the patient's past medical history: Yes Medical History: Reports:: Diabetes Mellitus Type 2, Hypertension, Kidney Stones Denies:: Cancer, Diabetes Mellitus Type 1, MRSA, Seizures Other Surgeries: Yes: Other (back surgery) Amputation: No Fractures: No - Social History Smoking Status: Never smoker Alcohol Intake: never Occupational Status: employed Housing: house Household Members: spouse Family Hx:: Unable to obtain ROS Obtained: Yes All systems reviewed & no additional complaints - Constitutional Constitutional: Reports system reviewed and no additional complaints, except as docu - Eyes Eyes: Reports system reviewed and no additional complaints, except as docu - ENT Ears, Nose, Mouth, and Throat: Reports system reviewed and no additional complaints, except as docu - Cardiovascular Cardiovascular: Reports system reviewed and no additional complaints, except as docu - Respiratory Respiratory: Reports system reviewed and no additional complaints, except as docu - Gastrointestinal Gastrointestingal: Reports: system reviewed and no additional complaints, except as docu Physical Exam - General General appearance: alert, in no apparent distress - Head Head exam: atraumatic, normocephalic, normal inspection - Eye Eye exam: Present: normal appearance, PERRL, EOMI - ENT ENT exam: Present: normal exam, normal oropharyn
[2020-04-19 12:40] VITALS: BP 125/100; PULSE 97; RESP 14; TEMP 36.9; O2SAT 100
== END 2020-04-19 12:43 | disposition home or self-care (01) ==
PROVIDERS: Emergency Provider Nurse Practitioner Family; PCP Family Medicine
DX: Z20.822 Contact with and (suspected) exposure to COVID-19 (principal); J01.90 Acute sinusitis, unspecified; I10 Essential (primary) hypertension; E11.9 Type 2 diabetes mellitus without complications; Z79.84 Long term (current) use of oral hypoglycemic drugs; Z87.442 Personal history of urinary calculi; Z88.0 Allergy status to penicillin; Z79.899 Other long term (current) drug therapy
CPT/HCPCS: 99202; G0463; U0003

== ENCOUNTER → 2020-05-23 15:26 | Outpatient (CLI) | payer BC, SELFPAY ==
--- NOTE | 2020-05-23 15:33 | XR_ITS ---
PROCEDURE: XR CERVICAL SPINE 5V CLINICAL INDICATION: CERVICAL RADICULOPATHY COMPARISON: No exams were available for comparison FINDINGS: There is straightening of the normal lordosis of the cervical spine. This is a nonspecific finding but can be associated with muscle spasm. There are no focal levels of malalignment. There is mild C4-5, moderate C5-6 and moderate C6-7 disc space narrowing. Remaining disc spaces are normal. There is scattered age-related mild to moderate facet degenerative changes. There is suspected foraminal narrowing of the bilat C5-6 and bilateral C6-7 neural foramina however this appearance could be partly positional. If confirmed, this narrowing could impinge on the exiting C6 and C7 nerve roots. There is mild left convex curvature of the upper thoracic spine of less than 10 degrees. IMPRESSION: Lower cervical degenerative change and narrowing. Possible superimposed muscle spasm. Mild thoracic spine curvature. Dictated by: Tish Carbajal MD 05/23/2020 17:28 Tish Carbajal MD in [place] 05/23/2020 17:28
== END ==
PROVIDERS: PCP Family Medicine; Visit Provider Family Medicine
DX: M54.12 Radiculopathy, cervical region (principal)
CPT/HCPCS: 72050

== ENCOUNTER → 2020-07-24 10:57 | Outpatient (POV) | payer BC, SELFPAY ==
[2020-07-24 11:11] VITALS: BP 135/88; PULSE 74; RESP 18; TEMP 36.8; O2SAT 99; BMI 29.8
--- NOTE | 2020-07-24 11:57 | HMH.PAINSOAP ---
[facility] Pain Management SOAP Note Subjective:: Is a pleasant 60-year-old white male who presents today for follow-up. Patient was originally being treated for low back pain. However today he comes with a complaint of neck pain. Patient does have an MRI showing degenerative changes along with bulging disc encroaching nerve root patient's pain is mainly in his neck radiating down his right arm. Patient has numbness and tingling. Patient's interested in potential injection therapy. Patient tried and failed conservative management over the last 6 weeks including medication management. ROS General: no recent weight change, no fever, no sleep disturbances Respiratory: no cough, no shortness of air, no recurring pulmonary infections Cardiovascular/Peripheral Vascular: No chest pain, No palpitations, no edema, no shortness of breath. Gastrointestinal: no new onset incontinence, normal bowel movements reported Genitourinary: no new onset incontinence Musculoskeletal: Neck pain, arm pain Psychiatric: normal mood/ affect Neurological: [denies new onset weakness in extremities], [denies new onset balance issues] Objective:: Physical Exam General: Alert and oriented x3, no acute distress, pleasant and cooperative, [on room air] Lungs: Resps E/U, Symmetrical chest expansion, Eyes: PERRL Musculoskeletal: Flexion and extension of cervical spine somewhat guarded secondary to pain, deep tendon reflexes normal, strength in upper and lower extremities [5/5], normal gait noted Neurological: speech clear, locksmith apprentice equal, no gross sensory deficits Assessment:: Degenerative disc disease cervical spine cervical radiculopathy and neck pain Plan:: We will move forward with a cervical C5-6 epidural steroid injection. We will follow up with him afterwards reassess his symptoms at that time patient's not on any anticoagulation therapy he has been counseled to call our office if he has any issues prior to his next appointment. Dr. Marsh has reviewed this note and agrees with this plan of care. This note was dictated using voice recognition software and may contain errors or omissions [facility] History I have reviewed the patient's past medical history: Yes Medical History: Reports:: Diabetes Mellitus Type 2, Hypertension, Kidney Stones Denies:: Cancer, Diabetes Mellitus Type 1, MRSA, Seizures *Have you ever received a pneumonia vaccine?: Yes *Have you received a flu vaccine this season?: Yes Other Surgeries: Yes: Other (back surgery) Amputation: No Fractures: No - *Social History Smoking Status: Never smoker Alcohol Intake: never *Occupational Status:: other Housing: house Household Members: spouse *Travel in the last 8 weeks: None Family Hx:: Unable to obtain
== END ==
PROVIDERS: PCP Family Medicine; Visit Provider Clinical Nurse Specialist Family Health
DX: M50.10 Cervical disc disorder with radiculopathy, unspecified cervical region (principal)
CPT/HCPCS: 99212; G0463

== ENCOUNTER 2020-08-08 11:39 | Day surgery (SDC) | payer BC, SELFPAY ==
[2020-08-08 12:36] VITALS: BP 139/89; PULSE 85; RESP 18; O2SAT 98
--- NOTE | 2020-08-08 12:36 | HMH.PMPROC ---
- Procedure Date: 08/08/20 Time: 12:36 Anesthesiologist:: Pierre Marsh MD Complications:: None Pre-procedure Diagnosis:: Degenerative disc disease of the cervical spine with cervical radiculopathy symptoms Post-procedure Diagnosis:: Same Indications for Procedure:: This patient is a pleasant 60-year-old white male who we are treating for pain with cervical radiculopathy symptoms. He has increasing pain in his neck radiating to his shoulders. We will seek approval and plan on cervical epidural steroid injection under fluoroscopy today to help with his pain symptoms. Procedure Details:: Cervical epidural steroid injection under fluoroscopy Informed consent was obtained and the risks and benefits of the procedure was explained to the patient. The patient was taken to the procedure room placed prone on the procedure table. The neck was prepped using ChloraPrep. The skin and subcutaneous tissues were anesthetized using lidocaine. I placed a 18-gauge epidural needle into the C5-C6 interspace and advanced using [id number] to air and fluoroscopic guidance. After confirmation of needle placement in the epidural space with dye, I injected 3 mL's lidocaine 1.5% and Depo-Medrol 80 mg. The patient tolerated the procedure well with no complications. Plan and Disposition:: We will follow-up with him in 2 weeks. Will reevaluate symptoms at that time.
[2020-08-08 12:38] VITALS: BP 132/89; PULSE 82; RESP 18; O2SAT 98
[2020-08-08 12:53] VITALS: BP 159/91; PULSE 65; RESP 18; O2SAT 98
== END 2020-08-08 12:50 | disposition home or self-care (01) ==
LOC: SC.PAINP 11:40
PROVIDERS: PCP Family Medicine; Visit Provider Anesthesiology
DX: M50.10 Cervical disc disorder with radiculopathy, unspecified cervical region (principal); I10 Essential (primary) hypertension; E11.9 Type 2 diabetes mellitus without complications; Z88.0 Allergy status to penicillin
CPT/HCPCS: 62321; J1040; Q9966

== ENCOUNTER → 2020-09-11 15:04 | Outpatient (POV) | payer BC, SELFPAY ==
[2020-09-11 15:34] VITALS: BP 151/77; PULSE 94; RESP 18; O2SAT 96; BMI 29.8
--- NOTE | 2020-09-11 20:20 | P.CONS_ITS ---
[facility] Pain Management SOAP Note Subjective:: Patient is a pleasant 60-year-old white male who presents today for follow-up. He recently underwent a cervical epidural steroid injection. He has been treated for degenerative disc disease cervical spine with cervical radicular symptoms. Patient had his injection in August 2020. Patient says he still has a 0 out of 10 pain at this time. He is much more functional and is doing daily activity without any pain. He says he is doing well overall since his injection. Review of Systems General: No recent weight changes, no fever, no sleep disturbances Respiratory: No cough, no shortness of air, no recurring pulmonary infections Cardiovascular/peripheral vascular: No chest pain, no palpitations, no edema, no shortness of breath Gastrointestinal: No new onset incontinence, normal bowel movements reported Genitourinary: No new onset incontinence Musculoskeletal: No pain Psychiatric: Normal mood/affect Neurological: [Denies weakness in extremities], [denies balance issues] Objective:: Physical exam General: Alert and oriented x3, no acute distress, pleasant and cooperative, [on room air] Lungs: Respirations even and unlabored, symmetrical chest expansion Eyes: PERRL Musculoskeletal: Flexion and extension of [] spine nonguarded, deep tendon reflexes normal, strength in upper and lower extremities [5/5], normal gait noted Neurological: Speech clear, top stitcher equal, no gross sensory deficit Assessment:: Degenerative disc disease cervical spine with cervical radiculopathy symptoms Plan:: Patient is doing well since his injection. We will schedule him for a 3-month follow-up to reevaluate his symptoms. Patient has been instructed to contact the clinic with any concerns before the next appointment. Dr. Marsh has reviewed this note and agrees with this plan of care. This note was dictated using voice recognition software and make contain errors or omissions. [facility] History I have reviewed the patient's past medical history: Yes Medical History: Reports:: Diabetes Mellitus Type 2, Hypertension, Kidney Stones Denies:: Cancer, Diabetes Mellitus Type 1, MRSA, Seizures *Have you ever received a pneumonia vaccine?: Yes *Have you received a flu vaccine this season?: Yes Other Surgeries: Yes: Other (back surgery) Amputation: No Fractures: No - *Social History Smoking Status: Never smoker Alcohol Intake: never *Occupational Status:: employed Housing: house Household Members: spouse *Travel in the last 8 weeks: None Family Hx:: Unable to obtain
== END ==
PROVIDERS: PCP Family Medicine; Visit Provider Clinical Nurse Specialist Family Health
DX: M50.10 Cervical disc disorder with radiculopathy, unspecified cervical region (principal)
CPT/HCPCS: 99212; G0463

== ENCOUNTER 2020-11-25 08:59 | Emergency (ER) | payer BC, SELFPAY ==
--- NOTE | 2020-11-25 09:20 | HMH.EDUTC ---
[facility] [place] Clinical Impression: Exposure to COVID-19 virus Disposition: Home, Self-Care Condition on Discharge: Good Instructions: DI for COVID-19 (Suspected or Confirmed ), Preventing the Spread of Coronavirus Discharge Instructions Additional Instructions: Drink plenty of fluids. Take tylenol for pain or fever. Return if you begin to have difficulty breathing. Follow up with your regular doctor. GO TO THE ER FOR ANY WORSENING SYMPTOMS Quarantine until you know the results of your covid-19 test. If it is positive, the health department should call you and give you further instructions about your length of Quarantine and other things. Notify your school or workplace of your results and follow their instructions regarding return to work/school. Follow up with your primary care physician regarding your blood pressure. Make sure you take your medicines as prescribed. Referrals: Hood Daly MD [Primary Care Provider] - Forms: Work/School Release Time of Disposition: 09:23 Medical Decision Making - Medical Records Medical records reviewed: No: I reviewed the patient's medical records. - Tarik Inquiry Pt receiving controlled substance: No Vital Signs: 11/25/20 09:27 Temperature 97.9 F Temperature Source Oral Pulse Rate [Left] 69 Respiratory Rate 18 Blood Pressure [Right Arm] 163/101 H Blood Pressure Mean [Right Arm] 121 02 Sat by Pulse Oximetry 97 Orders (Tests/Meds): ORDERS Category Date Time Status Covid-19 Nasal PCR ([facility]) Routine Lab 11/25/20 09:14 Received [facility] [place] - General Stated complaint: covid exposure Time Seen by Provider: 11/25/20 09:20 - History of Present Illness Provider Complaint: His currently has covid-19. This patient has been vaccinated, but he needs to be tested due to his work. He denies any symptoms. - Related Data Home Medications Medication Instructions Recorded Confirmed losartan 50 mg tablet 50 mg PO QDAY 04/12/17 08/08/20 mesalamine 800 mg tablet,delayed 800 mg PO .Q24 tab 04/12/17 08/08/20 release metformin 500 mg tablet 500 mg PO QDAY tab 04/12/17 08/08/20 Cyclobenzaprine HCl [Flexeril 10mg 10 mg PO NEEDED PRN 09/13/17 08/08/20 tablet] Azithromycin [Z-Stoney 250mg Tab*] 250 mg PO UD DOSE PK 08/08/20 08/08/20 Allergies Allergy/AdvReac Type Severity Reaction Status Date / Time Penicillins [PENICILLINS] Allergy Mild Verified 08/08/20 12:13 [facility] History - Hepatitis A Screen Attestation statement:: This patient has been screened for Hepatitis A risk factors. I have reviewed the patient's past medical history: Yes Medical History: Reports:: Diabetes Mellitus Type 2, Hypertension, Kidney Stones Denies:: Cancer, Diabetes Mellitus Type 1, MRSA, Seizures Other Surgeries: Yes: Other (back surgery) Amputation: No Fractures: No - Social History Smoking Status: Never smoker Alcohol Intake: never Occupational Status: employed Housing: house Household Members: spouse Family Hx:: Unable to obtain ROS Obtained: Yes All systems reviewed & no additional complaints - Constitutional Constitutional: Reports system reviewed and no additional complaints, except as docu - Eyes Eyes: Reports system reviewed and no additional complaints, except as docu - ENT Ears, Nose, Mouth, and Throat: Reports system reviewed and no additional complaints, except as docu - Cardiovascular Cardiovascular: Reports system reviewed and no additional complaints, except as docu - Respiratory Respiratory: Reports system reviewed and no additional complaints, except as docu Physical Exam - General General appearance: alert, in no apparent distress - Head Head exam: atraumatic, normocephalic, normal inspection - Eye Eye exam: Present: normal appearance, PERRL, EOMI - ENT ENT exam: Present: normal exam, normal oropharynx, mucous membranes moist, TM's normal bilaterally, normal external ear exam - Neck Neck exam:
[2020-11-25 09:27] VITALS: BP 163/101; PULSE 69; RESP 18; TEMP 36.6; O2SAT 97; BMI 28.7
[2020-11-25 10:11] VITALS: BP 151/98; PULSE 74; RESP 16; TEMP 36.9
== END 2020-11-25 10:11 | disposition home or self-care (01) ==
PROVIDERS: Emergency Provider Nurse Practitioner Family; PCP Family Medicine
DX: Z20.822 Contact with and (suspected) exposure to COVID-19 (principal); E11.9 Type 2 diabetes mellitus without complications; I10 Essential (primary) hypertension; Z87.442 Personal history of urinary calculi; Z79.899 Other long term (current) drug therapy
CPT/HCPCS: 99202; G0463; U0003

== ENCOUNTER → 2020-12-17 17:28 | Outpatient (CLI) | payer BC, SELFPAY | PROVIDERS: PCP Family Medicine; Visit Provider Nurse Practitioner | DX: Z20.822 Contact with and (suspected) exposure to COVID-19 (principal) | CPT/HCPCS: C9803; U0003; U0005 ==

== ENCOUNTER 2022-05-18 08:25 | Emergency (ER) | payer BC, SELFPAY ==
[2022-05-18 09:00] VITALS: BP 141/88; PULSE 125; RESP 20; TEMP 38.9; O2SAT 100; BMI 29.4
--- NOTE | 2022-05-18 09:26 | EXP.UTC ---
Discharge Plan Disposition Patient Disposition: Home, Self-Care Condition: Good Prescriptions Prescriptions: No Action mesalamine [Asacol HD] 800 mg tablet,delayed release (DR/EC) 800 mg PO .Q24 metformin 500 mg tablet 500 mg PO QDAY losartan 50 mg tablet 50 mg PO QDAY Referrals Follow up/Referrals: Hood Daly MD [Primary Care Provider] - See instructions Activity Restrictions/Add. Instructions Additional Instructions/Restrictions: * No sign of bacterial infection. Likely viral. Virus can take 7-14 days to run their course *Nasal saline and bulb syringe or nose jonathon to remove nasal drainage and help with nasal congestion. Hard to eat, drink, or sleep with nasal congestion so important to keep nose cleaned out. *Monitor Temp, Over the counter Motrin or Tylenol as directed/as needed Tylenol every 4 hours and Motrin every 6 hours (as long as your family doctor has told you that you can take it) for fever or pain. and straight to ER if unable to lower temp less than 101.0 after medication given *Warm salt water gargles may help to soothe the throat *Throat Lozenges? *Warm fluids like tea with honey may help to soothe the throat? *Sleep elevated *Humidifier/Vaporizer *Flonase 2 sprays in each nostril daily but be aware that it may take 2-3 days before you notice improvement *Bromfed may cause drowsiness. Know how it effects you (your child) before driving, caring for small child, or sending your child to school. Not other antihistamines/allergy medications while taking bromfed Your throat swab was sent for culture. Those results are typically sent to your primary care. Be sure to follow up in 2-3 days with your family doctor/primary care physician if no improvement so they can review those result and treat if necessary. If you don?t have a primary care doctor, I recommend you get one but in the mean time, you will have to return to a walk in clinic Follow up IMMEDIATELY for new or worsening symptoms or no Noticeable improvement over the next 48-72 hours. 911 for difficulty breathing or swallowing You were tested for today for COVID19 your test result should be back in the next 24-48 hours, you may check your results on the [facility] My Health Portal Clinical Impressions Clinical Impression: Viral syndrome Stand Alone Forms Stand Alone Forms: Work/School Release Instructions Patient Instructions: DI for COVID-19 (Suspected or Confirmed ), DI for Fever (Symptom) -- Adult, Preventing the Spread of Coronavirus Discharge Instructions Discharge ED Provider: Mary Haro [facility] HPI General Stated complaint: Bodyaches,fever Time Seen by Provider: 05/18/22 09:26 History of Present Illness Provider Complaint: Patient states that he started feeling bad yesterday and started with sore throat, dry cough and body aches and chills States it has continued throughout the night States that this morning he was still not feeling any better so he came in Related Data Home Medications Medication Instructions Recorded Confirmed losartan 50 mg tablet 50 mg PO QDAY High blood pressure 04/12/17 05/18/22 mesalamine 800 mg tablet,delayed 800 mg PO .Q24 IBS 04/12/17 05/18/22 release (Asacol HD) metformin 500 mg tablet 500 mg PO QDAY Diabetes 04/12/17 05/18/22 Allergies Allergy/AdvReac Type Severity Reaction Status Date / Time Penicillins [PENICILLINS] Allergy Mild Verified 05/18/22 09:27 [facility] Disclaimer: The information contained in this section may have been updated after the patient was seen, as this information can be updated by other users. Social History Smoking Status: Never smoker alcohol intake: never current occupational status: employed Travel in the last 8 weeks: None household members: spouse housing: house current occupational exposures/hazards: No caffeine: Yes ROS Obtained: Yes All systems
[2022-05-18 09:31] LABS: UTC Influenza A Antigen Negative (Negative); UTC Strep Screen (Rapid) Negative (Negative)
[2022-05-18 09:32] LABS: UTC Influenza B Antigen Negative (Negative)
[2022-05-18 10:20] VITALS: BP 141/88; PULSE 110; RESP 20; TEMP 37.9; O2SAT 100
[2022-05-18 10:42] LABS: Influenza A, PCR Not Detected (NotDetected); Influenza B, PCR Not Detected (NotDetected)
[2022-05-18 11:10] LABS: Coronavirus 19, PCR Detected (NotDetected)
== END 2022-05-18 10:20 | disposition home or self-care (01) ==
PROVIDERS: Emergency Provider Nurse Practitioner; PCP Family Medicine
DX: B34.9 Viral infection, unspecified (principal); R52 Pain, unspecified; R50.9 Fever, unspecified
CPT/HCPCS: 87804; 87880; 99212; C9803; G0463; U0003; U0005

== ENCOUNTER 2022-12-02 07:56 | Day surgery (SDC) | payer BC, SELFPAY ==
[2022-11-11 10:05] VITALS: BMI 29.5
[2022-12-02 08:11] VITALS: BP 148/97; PULSE 76; RESP 18; TEMP 36.2; O2SAT 95; BMI 29.5
--- NOTE | 2022-12-02 08:12 | P.PNANES_ITS ---
[facility] Disclaimer: The information contained in this section may have been updated after the patient was seen, as this information can be updated by other users. Medical History (Updated 12/02/22 @ 08:15 by Cristal Valenzuela RN) Allergies Crohn disease Diabetes mellitus, type 2 History of COVID-19 Hyperlipidemia Hypertension Hypertension Irritable bowel syndrome (IBS) Surgical History (Updated 12/02/22 @ 08:15 by Cristal Valenzuela RN) History of back surgery History of colonoscopy Family History (Updated 12/02/22 @ 08:15 by Cristal Valenzuela RN) Other No significant family history Social History Smoking Status: Never smoker alcohol intake: never substance use type: denies use current occupational status: employed Travel in the last 8 weeks: None household members: spouse housing: house current occupational exposures/hazards: No caffeine: Yes [facility] Anesthesia Checklist Patient Identification Patient Identification: Arm Band and Verbal (Name & ) Structural Data Admitted From: Home Planned Operative Procedure/s: colonoscopy Consent for Planned Operative Procedure(s) Verified: Yes Verified Documents: Surgical Consent NPO Status Verified Time NPO: 00:00 Additional verifications Fingerstick Blood Glucose: 129 Anesthesia Reactions: No Hx Blood Transfusions: No Previous Colonoscopy: Yes Airway Assessment Mallampati Score:: Class I C-Spine Mobility Assessed: Yes TMJ Mobility Assessed: Yes Dentition: Good Dentition Neurological Assessment Level of Consciousness: Awake and Alert Anesthesia Plan Anesthesia Type: IV sedation
[2022-12-02 08:50] LABS: POC Glucose,Bedside 129 (70-110)
[2022-12-02 09:00] VITALS: O2SAT 95
--- NOTE | 2022-12-02 09:21 | HMH.SCOPE ---
Procedure: Date: 12/02/22 Patient Date of :: 1960 Procedure Performed:: Colonoscopy with biopsies and snare polypectomy Indications:: History of crohns disease and history of polyps Performing Provider:: Hal Elaine MD Referring Provider:: Timothy Gan MD Sedation:: Propofol Procedure:: After placing the patient in the left lateral decubitus position, the colonoscopy was gently inserted into the rectum and under direct visualization advanced to the cecum which was identified by transillumination in the right lower quadrant, identification of the ileocecal valve, appendiceal orifice, and cecal strap. Color, texture, mucosa, and anatomy of the colon were carefully examined with the scope. Findings:: Anal canal: Normal Rectum: Mild superficial proctitis Sigmoid colon: Smooth mucosa with fine mild colitis changes, multiple biopsies obtained 0.5 cm inflammatory type polyp identified and removed with cold snare Descending colon: normal without polyps or inflammatory changes Splenic flexure: normal Transverse colon: normal without polyps or inflammatory changes Hepatic flexure: normal Ascending colon: normal without polyps or inflammatory changes Cecum: normal Terminal ileum: not visualized Impression: Mild Left sided colitis more suggestive of ulcerative colitis Sigmoid inflammatory polyp Specimens:: Sigmoid polyp Recommendations:: Follow up examination in about FIVE years or so, sooner if clinically indicated due to history of polyp and colitis. Complications:: None Estimated blood obtained (mL): 0 Colonoscopy Component Colonoscopy Component Was a colonoscopy performed during today's procedure?: Yes Recommended follow up colonoscopy of at least 10 years?: No If no, follow up colonoscopy recommended in ___ years?: Five Reason for not recommending >/= 10 yr follow-up interval?: See above in report
[2022-12-02 09:22] VITALS: BP 101/71; PULSE 16; RESP 17; TEMP 36.5; O2SAT 94
[2022-12-02 09:32] VITALS: BP 108/76; PULSE 77; RESP 16; O2SAT 93
[2022-12-02 09:42] VITALS: BP 111/70; PULSE 74; RESP 17; O2SAT 94
[2022-12-02 09:52] VITALS: BP 114/71; PULSE 71; RESP 17; O2SAT 95
== END 2022-12-02 10:04 | disposition home or self-care (01) ==
PROVIDERS: PCP Family Medicine; Visit Provider Internal Medicine Gastroenterology
PROC: 0DJD8ZZ Inspection of Lower Intestinal Tract, Via Natural or Artificial Opening Endoscopic (ICD-10-PCS; CPT 45378; principal; 2022-12-02 09:00)
DX: Z12.11 Encounter for screening for malignant neoplasm of colon (principal); Z86.010 Personal history of colon polyps; Z87.19 Personal history of other diseases of the digestive system; K52.89 Other specified noninfective gastroenteritis and colitis; K51.40 Inflammatory polyps of colon without complications; K62.89 Other specified diseases of anus and rectum; E11.9 Type 2 diabetes mellitus without complications
CPT/HCPCS: 45385; 82962

== ENCOUNTER → 2023-03-30 23:07 | Outpatient (CLI) | payer BC, SELFPAY ==
[2023-03-30 19:25] LABS: Coronavirus 19, PCR Not Detected (NotDetected); Influenza A, PCR Not Detected (NotDetected); Influenza B, PCR Not Detected (NotDetected)
== END ==
LOC: LAB.DROPOF 23:07
PROVIDERS: PCP Family Medicine; Visit Provider Nurse Practitioner Family
DX: R05.9 Cough, unspecified (principal); R09.81 Nasal congestion
CPT/HCPCS: 87636

== ENCOUNTER 2023-05-20 14:47 | Outpatient (CLI) | payer BC, SELFPAY ==
--- NOTE | 2023-05-20 14:57 | XR_ITS ---
FINAL REPORT CLINICAL HISTORY: PAIN IN LEFT FOOT COMPARISON: None FINDINGS: LEFT FOOT: Three views of the left foot were obtained. There is no acute fracture or dislocation. The joint spaces are intact. There is no soft tissue abnormality. IMPRESSION: No acute bony abnormality. Reviewed, Interpreted and Dictated by Avel Reilly III, MD Transcribed by Joan Ramsay [facility]hentic[facility] and [facility]
== END 2023-05-20 23:59 ==
LOC: RAD 14:48
PROVIDERS: PCP Family Medicine; Visit Provider Family Medicine
DX: M79.672 Pain in left foot (principal)
CPT/HCPCS: 73630

== ENCOUNTER 2023-07-07 16:27 | Outpatient (CLI) | payer BC, SELFPAY ==
--- NOTE | 2023-07-07 | XR_ITS ---
PROCEDURE INFORMATION: Exam: XR Chest Exam date and time: 07/07/2023 4:37 PM Age: 63 years old Clinical indication: Cough; Additional info: Chronic cough TECHNIQUE: Imaging protocol: Radiologic exam of the chest. Views: 2 views. COMPARISON: No relevant prior studies available. FINDINGS: Lungs: No focal airspace consolidation. No pulmonary edema. Pleural spaces: Possible small left pleural effusion. Heart/Mediastinum: Cardiomediastinal silouhette is within normal limits. Bones/joints: No evidence of acute osseous abnormality. IMPRESSION: Possible small left pleural effusion.
== END 2023-07-07 23:59 ==
LOC: RAD 16:28
PROVIDERS: PCP Family Medicine; Visit Provider Family Medicine
DX: R05.3 Chronic cough (principal)
CPT/HCPCS: 71046

== ENCOUNTER 2024-07-02 11:57 | Outpatient (CLI) | payer BC, SELFPAY ==
--- NOTE | 2024-07-02 | CA_ITS ---
APPROVED REPORT EXAM: Comprehensive 2D, Doppler, and color-flow Echocardiogram Game Programer: Luly Ramirez RT(R) Ht: 5 ft 10 in Wt: 204lbs BSA: 2.10 BP: 147/96 mmHg Indications: CP, SOA, HTN, hyperlpidemia, DM, ex smoker. 2D Dimensions Left Atrium 3.39 cm M: 3.0 - 4.0 LA Volume 24.00 mL LVOT 2.01 cm (M/F) 1.5-2.5 LA Volume Index 11.37 mL/m2 (M/F) 16-34 EF AP4 60.50 % GL Strain -18.2 % M-Mode Dimensions RVDd 3.06 cm (0.9-2.6) LVDd 4.87 cm (3.5-5.7) Ao Diam 2.78 cm (2.0-3.7) LVDs 3.62 cm (3.5-5.7) IVSd 1.05 cm (0.6-1.1) PWd 0.93 cm (0.6-1.1) EF (Teich) 50.40% FS 25.70% EDV (Teich) 111.20 mL ESV (Teich) 55.20 mL LV Diastology E Decel Time 181 (160-240 msec) E/A Ratio 1.3 MED E' 6.3 (>= 7 cm/sec) E'/MED E' Ratio 12.08 (<= 14) LAT E' 10.2 (>= 10 cm/sec) E/LAT E' Ratio 7.46 (<= 14) Mitral Valve MV E Max Adi. 76.0 (40-130 cm/s) MV A Velocity 59.0 (40-130 cm/s) E/A Ratio 1.29 MV Decel. Time 181 (160-240 ms) Left Ventricle The left ventricle is normal size. The left ventricular systolic function is normal. The left ventricular ejection fraction is within the normal range. There is increased LV wall thickness. There is normal LV segmental wall motion. The left ventricular diastolic function is normal. LVEF is 55%. Right Ventricle The right ventricle is normal size. The right ventricular systolic function is normal. Atria Left atrium is mildly dilated. Right atrium is mildly dilated. There is no Doppler evidence of interatrial shunt. Aortic Valve The aortic valve is mildly thickened. Trace aortic regurgitation. There is no aortic valvular stenosis. Mitral Valve The mitral valve is normal in structure. No evidence of mitral valve stenosis. Mild to moderate mitral regurgitation. Tricuspid Valve Tricuspid valve is grossly normal in structure and function. Trace tricuspid regurgitation. There is insufficient TR jet to estimate RVSP. Pulmonic Valve The pulmonary valve is normal in structure. Mild pulmonic regurgitation. Great Vessels The aortic root is normal in size. IVC is normal in size and collapses >50% with inspiration. Pericardium There is no pericardial effusion. Other Information Study Quality: Fair Conclusion Normal biventricular systolic function. Mild biatrial dilation. Mild to moderate MR. Mild PI. Electronically signed by : Yuni Allison MD 07/12/2024 14:58:40
--- NOTE | 2024-07-02 12:06 | CT_ITS ---
APPROVED REPORT Customer Development Representative: CLINICAL INDICATION Chest Pain TECHNIQUE Image Acquisition: A 128 slice MDCT scanner ([employer] View) was used for data acquisition. A noncontrast coronary calcium scan was performed. A CT attenuation threshold of 130 Hounsfield units (HU) was used for the detection of calcium in contiguous voxels of 1 sq mm in area to be counted as individual lesions. Bolus tracking in the ascending aorta with a threshold of 180 HU was performed. Immediately afterwards, ECG synchronized cardiac CT was then performed from the cardiac base to apex using retrospective gating with ECG tube current modulation. A total of 85 mL of Isovue 370 mg/mL contrast medium was administered at 5 mL/sec followed by a saline flush using a biphasic injection protocol. A tube voltage of 120 KVp was used. The patient received the following medications prior to the cardiac CT. 0.8 mg of sublingual nitroglycerin The average heart rate at the time of acquisition was 61 bpm and regular. Image Reconstruction Transaxial images were reconstructed at 0.67 mm slide thickness. Data was reviewed interactively on an advanced workstation capable of 2 and 3-dimensional displays in all conventional reconstruction formats, including multiplanar reformations, maximum intensity projections, curved multiplanar reformations, and volume rendered reconstructions. When applicable, selected routine images describing the relevant coronary anatomy and pathology were saved and sent to PACS. Complications None Technical Quality Overall image quality was good. Coronary artery opacification was adequate. Total DLP (Dose-Length Product) is 1231.3 mGy-cm. The reported value represents the total of one or more individual components during the CT acquisition of this date and at this time, and as such, the same value may appear in more than one CT report depending on the interpreting/reporting physicians. COMPARISON None FINDINGS CT Coronary Calcium Scoring LMA (Left Main Artery) = 0 LAD (Left Anterior Descending) = 0 LCX (Left Coronary Circumflex) = 0 RCA (Right Coronary Artery) = 0 Total Calcium Score = 0 using the AJ-130 method. The interpretation of the calcium heart score is based on the following continuum*: 0 = no calcified plaque detected (risk of coronary artery disease is very low ??? less than 5%) 1-10 = calcium detected in extremely minimal levels (risk of coronary diseases is still low ??? less than 10%) 11-100 = mild levels of plaque detected with certainty (mild or minimal narrowing of heart arteries is likely) 101-400 = definite,at least moderate levels of plaque detected (relatively high risk of a heart attack within 3-5 years) >401-999 = extensive levels of plaque detected (high risk of heart attack, high levels of vascular disease are present, high likelihood of at least one significant coronary narrowing) *The calcium heart score quantifies the burden of coronary calcification/plaque in the coronary arteries. The calcium heart score is not able to evaluate the presence or burden of non-calcified (i.e. soft) plaque. There is no identifiable calcification in the aortic valve, mitral annulus or mitral valve, pericardium, or myocardium. Coronary CT Angiography The coronary arterial system is left dominant. Quantitative Stenosis Grading: Left Main (LM): The left main originates normally from the left sinus of Valsalva. The LM bifurcates into the left anterior descending artery and left circumflex artery. The LM is patent with no evidence of atherosclerosis. Left Anterior Descending (LAD) and Diagonal Branches: The LAD gives off 3 diagonal branch(es). The LAD and its branches are patent with no evidence of atherosclerosis. There is no evidence of LAD-myocardial bridge. Left Circumflex (LCX) and Obtuse Marginals (OM): The LCX gives off 2 Obtuse Marginal (OM) branch(es). The LCX and its branches are patent with no evidence of atherosclerosis. Right Coronary Artery (RCA): The RCA originates normally from the right sinus of Valsalva. The RCA is a small caliber vessel. The RCA and its branches are patent with no evidence of atherosclerosis. Non-Coronary Cardiac Findings: Analysis of the left ventricular (LV) structure and function was performed after 3-D reconstruction of the LV from axial images, with user-corrected automatic contouring for assessment of LV volumes and user-defined reconstruction from oblique planes for measurement of 3-D cardiac structure and function. -The left ventricle systolic function is normal. -There is no left atrial appendage filling defect. Two right pulmonary veins and two left pulmonary veins drain normally into the left atrium. -No pericardial thickening or calcification. -Central and branch pulmonary arteries in the [id number] are unremarkable. -Thoracic aorta within the visualized thoracic aortic-branches in the [id number] is unremarkable. Extracardiac Structures No significant extra-cardiac findings. Note, however, that this study is focused on the cardiac findings. IMPRESSION -Absence of coronary calcification with an Agatston score = 0 using the AJ-130 method. -No evidence of significant flow-limiting atherosclerosis of the coronary arteries. -No evidence of coronary anomalies or myocardial bridges. -CAD-RADS 0. Management recommendations per ACC/AHA guidelines*, as clinically appropriate. *Recommendations: CAD RADS 0: Reassurance. Consider non-atherosclerotic causes of chest pain. CAD RADS 1: Consider non-atherosclerotic causes of chest pain. Consider preventive therapy and risk factor modification. CAD RADS 2: Consider non-atherosclerotic causes of chest pain. Consider preventive therapy and risk factor modification, particularly for patients with nonobstructive plaque in multiple segments. CAD RADS 3: Consider further functional testing. Consider symptom-guided anti-ischemic and preventive pharmacotherapy as well as risk factor modification per published guideline statements. CAD RADS 4A: Consider further functional testing or invasive coronary angiography with revascularization per published guideline statements. Consider symptom-guided anti-ischemic and preventive pharmacotherapy as well as risk factor modification per published guideline statements. CAD RADS 4B: Invasive coronary angiography recommended with revascularization per published guideline statements. Consider symptom-guided anti-ischemic and preventive pharmacotherapy as well as risk factor modification per published guideline statements. CAD RADS 5: Consider invasive angiography and/or viability assessment with revascularization per published guideline statements. Consider symptom-guided anti-ischemic and preventive pharmacotherapy as well as risk factor modification per published guideline statements. CRITICAL RESULT None COMMUNICATION Per this written report The coronary and cardiac findings of this CCTA were reviewed, reported, and signed by Sergo Allison MD (Acid Strength Inspector) Conclusion Electronically signed by : Yuni Allison MD 07/03/2024 21:28:06
[2024-07-02 12:10] VITALS: BMI 29.2
[2024-07-02 12:22] VITALS: BP 125/77; PULSE 57; RESP 16; O2SAT 98
[2024-07-02 12:51] LABS: Chloride 103 mmol/L (98-107); Sodium 139 mmol/L (136-145)
[2024-07-02 12:54] LABS: Blood Urea Nitrogen 14 mg/dl (9-20); Calcium 8.9 mg/dl (8.4-10.2); Carbon Dioxide 29 mmol/L (22.0-30.0); Creatinine Clearance Estimated 95 mL/min (50-200); Estimated Glomerular Filt Rate 113 ml/min (>60); GFR (African American) 137 ML/MIN (>60); Glucose 119 mg/dl (74-100)
[2024-07-02 13:11] VITALS: BP 149/90; PULSE 63; RESP 16; O2SAT 97
[2024-07-02] MEDS: NITROGLYCERIN 0.4MG SL TABLET SL (13:11)
[2024-07-02 13:14] VITALS: BP 144/86; PULSE 58; RESP 16; O2SAT 97
[2024-07-02 13:17] VITALS: BP 148/92; PULSE 69; RESP 16; O2SAT 99
[2024-07-02] MEDS: IOPAMIDOL-370 (76%);100ML BOTTLE 85 ML IV (13:27)
[2024-07-02] MEDS: SODIUM CHLORIDE 0.9% 10ML SYR (RAD ONLY) 10 ML IV (13:27)
[2024-07-02] MEDS: 0.9 % SODIUM CHLORIDE 50 ML VIAL IV (13:27)
[2024-07-03 11:08] LABS: POC Glucose,Bedside 121 (70-110)
== END 2024-07-02 23:59 | disposition home or self-care (01) ==
PROVIDERS: PCP Family Medicine; Visit Provider Internal Medicine
DX: R07.89 Other chest pain (principal); E78.49 Other hyperlipidemia; I10 Essential (primary) hypertension; I34.0 Nonrheumatic mitral (valve) insufficiency
CPT/HCPCS: 75574; 80048; 82962; 93306; Q9967

== ENCOUNTER 2024-11-19 13:37 | Outpatient (CLI) | payer MEDICARE, SELFPAY ==
--- OUTSIDE RECORDS SUMMARY | 2024-08-28 11:20 | XMS_ITS | Encounter Summary ---
Author Organization [facility] Address [address] [place] [address] Care Team Providers Care Emergency Department Rn Name Role Phone Yazan Daly MD Primary Care Provider [phone] Reason for Referral * Consultation (Routine) - Authorized Specialty Diagnoses / Procedures Referred By Maci babin Referred To Contact Diagnoses IBD (inflammatory bowel disease) Juan Carlos Marks MD [address] [address] Phone: tel: fax: Referral ID Status Reason Start Date Expiration Date V isits Requested Visits Authorized [id number] Authorized 08/28/2024 02/27/2026 1 1 * Imaging (Routine) - Pending Review Specialty Diagnoses / Procedures Referred By Maci babin Referred To Contact Gastroenterology Diagnoses IBD (inflammatory bowel disease) External prolapsed hemorrhoids Procedures Flexible Sigmoidoscopy - Juan Carlos Farah MD [address] [address] Phone: tel: fax: Referral ID Status Reason Start Date Expiration Date Visits Requested Visits Authorized [id number] Pending Review Specialty Services Required 08/28/2024 02/27/2026 1 1 Reason for Visit * Reason Comments Ulcerative colitis, left sided, with rec garret bleeding (CMS/H Encounter Details Date Type Department Care Team (Late st Contact Info) Description 08/28/2024 11:20 AM EDT Telemedicine [facility] [address] [place] [address] Juan Carlos Marks MD [address] [place] [address] IBD (inflammatory bowel disease) (Primary Dx); External prolapsed hemorrhoids Social History Tobacco Use Types Packs/Day Years Used Date Smoking Tobacco: Former Cigarettes 1 11 0 04/12/1975 - 04/12/1986 Smokeless Tobacco: Never Alcohol Use Standard Drinks/Week Comments Yes 2 (1 standard drink = 0.6 oz pur e alcohol) PHQ-2 Answer Date Recorded Patient Health Questionnaire-2 Score 0 08/28/2024 PHQ-9 Answer Date Recorded Patient Health Questionnaire-9 Score 0 08/28/2024 Sex and Gender Information Value Date Recorded Sex Assigned at Not on file Legal Sex Male 8:58 PM EDT Gender Identity Not on file Sexual Orientation Not on file documented as of this encounter Last Filed [...] pleasure in doing things Not at all 08/28/2024 11:25 AM EDT Maria Alejandra Sneed Feeling down, depressed, or hopeless Not at all 08/28/2024 11:25 AM EDT Maria Alejandra Sneed Patient Health Questionnaire -2 Score 0 08/28/2024 11:25 AM EDT Maria Alejandra Sneed * Question Answer Date of Assessment Author Trouble falling or staying asleep, or sleeping too much Not at all 08/28/2024 11:25 AM EDT Danielle Sneed Feeling tired or having aysha le energy Not at all 08/28/2024 11:25 AM EDT Maria Alejandra Sneed Poor appetite or overeating Not at all 08/28/2024 11 :25 AM EDT Danielle Sneed Feeling bad about yourself - or that you are a failure or have let yourself or your family down Not at all 08/28/2024 11:25 AM EDT Danielle Gordon Trouble concentrating on thi ngs, such as reading the newspaper or watching television Not at all 08/28/2024 11:25 AM EDT Maria Alejandra Sneed Moving or speaking so slowly that other people could have noticed? Or the opposite - being so fidgety or restless that you have been moving around a lot more than usual. Not at all 08/28/2024 11:25 AM EDT Maria Alejandra Sneed Thoughts that you would be better off or hurting yourself in some way Not at all 08/28/2024 11:25 AM CLAIRET Magda Sneed Patient Health Questionnaire -9 Score 0 08/28/2024 11:25 AM EDT Maria Alejandra Sneed * If you checked off any problems on this questionnaire so far, Question Answer Date of Assessment Author How difficult have these problems made it for you to do your work, take care of things at home, or get along with other people? 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 Concerned about hemorrhoid impact on future travel [...] mg, Daily omeprazole (PRILOSEC) 40 mg, Daily JSC-HMy-MaVk-NaSulf-Na Asc-C (MoviPrep) 100 g reconstituted solution Drink [...] PM 12/15/2016 7:58 AM 06/20/2018 8:39 AM 08/08/2018:25 PM 05/01/2024 8:27 AM 08/28/2024 11:25 AM [...] 03/10/2015 No results found for: MICROALBUR , [id number] Creatinine clearance cannot be calculated (Patient's most recent lab result is older than the maximum 7 days allowed.) No results found for: ALT , AST , GGT , ALKPHOS , BILITOT No results found for: PROT , ALBUMIN No results found for: TSH , M5XPSDT , V2MFFMK , THYROIDAB No results found for: FOLATE No results found for: [id number] No echocardiogram results found for the past 12 months Lab Frequency Next Occurrence Colonoscopy Once 05/01/2024 IBD [facility] Once 05/01/2024 Assessment/Plan Raad was seen today for ulcerative colitis, left sided, with rectal bleeding (cms/h. Diagnoses and all orders for this visit: IBD (inflammatory bowel disease) - Calprotectin, Stool; Future - Flexible Sigmoidoscopy - [facility]; Future - Follow Up GI; Future - CBC and differential; Future - Comprehensive metabolic panel; Future - Iron & Total Iron Binding Capacity, Plasma (Includes Transferrin); Future External prolapsed hemorrhoids - Flexible Sigmoidoscopy - [facility]; Future Crohn's Disease / Left sided Ulcerative [...] with sclerotherapy in third week of November (18-22) - Simple prep with two enemas, NPO [...] Upcoming Encounters Date Type Department Care Team (Late st Contact Info) Description 2025 11:40 AM EDT Office Visit [facility] [address] [place] [address] Luly Robledo, DO [address] [place] [address] Scheduled Orders Name Type Priority Associated Diagnoses Orde r Schedule Calprotectin, Stool Lab Routine IBD (inflammatory bowel disease) Expected: 01/21/2025 (Approximate), Expires: 02/28/2026 Flexible Sigmoidoscopy - [facility] Endoscopy Routine IBD (inflammatory bowel disease) External prolapsed hemorrhoids Expected: 08/28/2024, Expires: 08/28/2025 Scheduled Referrals Name Type Priority Associated Diagnoses Orde r Schedule Follow Up GI Outpatient Referral Routine IBD (inflammatory bowel disease) Expected: 01/28/2025 (Approximate), Expires: 09/28/2025 documented as of this encounter Results * Iron & Total Iron Binding Capacity, Plasma (Includes Transferrin) (10/02/2024 7:43 AM EDT) Blood Venous blood specimen / Unknown Juan Carlos Marks MD LAB BLOOD ORDERABLES Final Result Performing Organization Address [facility] de Phone Number EXTERNAL LAB * Comprehensive metabolic panel (10/02/2024 7:43 AM EDT) Blood Venous blood specimen / Unknown Juan Carlos Marks MD LAB BLOOD ORDERABLES Final Result Performing Organization Address [facility] de Phone Number EXTERNAL LAB * CBC and differential (10/02/2024 7:43 AM EDT) Blood Venous blood specimen / Unknown Result Nini Juan Carlos Marks MD LAB BLOOD ORDERABLES Final Result Performing Organization Address [facility] de Phone Number EXTERNAL LAB documented in this encounter Visit Diagnoses Diagnosis IBD (inflammatory bowel disease)- Primary Other and unspecified noninfectious gastroenteritis and colitis External prolapsed hemorrhoids documented in this encounter Additional Health Concerns Assessment Noted Time PHQ-9 Depression Total Score: 0 08/29/19 11:25 AM EDT A fall risk assessment has been complete d for the patient 08/28/2024 11:26 AM EDT A Body Mass Index follow-up plan has been documented for the patient 05/01/2024 9:29 AM EST documented as of this encounter Care Teams Emergency Department Rn Relationship Specialty Start Date End Date Yazan Daly MD [address] [place] [address] PCP - General 08/15/20 documented as of this encounter
--- OUTSIDE RECORDS SUMMARY | 2024-11-19 13:41 | XMS_ITS | Encounter Summary ---
Author Organization Healthcare Address [address] [place] [address] Care Team Providers Care Baggageman Name Role Phone Yazan Daly MD Primary Care Provider [phone] Encounter Details Date Type Department Care Team (Late st Contact Info) Description 05/16/2024 Lab Requisition [facility] [address] [place] [address] Luly Robledo L, DO [address] [place] [address] Encounter for screening for malignant neoplasm of colon Social History Tobacco Use Types Packs/Day Years Used Date Smoking Tobacco: Former Cigarettes 1 11 0 04/12/1975 - 04/12/1986 Smokeless Tobacco: Never Alcohol Use Standard Drinks/Week Comments Yes 2 (1 standard drink = 0.6 oz pur e alcohol) PHQ-2 Answer Date Recorded Patient Health Questionnaire-2 Score 0 05/01/2024 PHQ-9 Answer Date Recorded Patient Health Questionnaire-9 Score 0 05/01/2024 Sex and Gender Information Value Date Recorded Sex Assigned at Not on file Legal Sex Male 8:58 PM EDT Gender Identity Not on file Sexual Orientation Not on file documented as of this encounter Plan of Treatment Upcoming Encounters Date Type Department Care Team (Late st Contact Info) Description 2025 11:40 AM EDT Office Visit [facility] [address] [place] [address] Luly Robledo DO [address] [place] [address] documented as of this encounter Procedures Procedure Name Priority Date/Time Associated Diagnosis Comments SURGICAL PATHOLOGY EXAM Routine 05/16/2024 Encounter for screening for malignant neoplasm of colon documented in this encounter Results * Surgical Pathology Exam (05/16/2024) Case Report Surgical Pathology Case: [id number] Authorizing Provider: Luly Robledo DO Collected: 05/16/2024 Ordering Location: [facility] Received: 05/16/2024 1150 Pathologist: Sumanth Gómez MD Specimens: A) - Colon, Right, right colon biopsy B) - Transverse Colon, transverse polyps C) - Transverse Colon, transverse polyp biopsy D) - Descending Colon, descending polyp E) - Colon, Left, left colon biopsy F) - Sigmoid Colon, rectosigmoid biopsy G) - Rectum, rectum biopsy 05/17/2024 12:35 PM EST [facility] Final Diagnosis A. LARGE INTESTINE, RIGHT COLON, BIOPSY: - PATCHY MILD ARCHITECTURAL DISTORTION; NO EVIDENCE OF ACTIVE IBD (HISTORY OF CROHN DISEASE) - NEGATIVE FOR GRANULOMAS OR DYSPLASIA B. LARGE INTESTINE, TRANSVERSE COLON, POLYPS, BIOPSY: - FEW FRAGMENTS OF SESSILE SERRATE LESION/POLYP - FEW FRAGMENTS BEST CHARACTERIZED INFLAMMATORY POLYPS WITH SERRATED EPITHELIAL CHANGES; NEGATIVE FOR DYSPLASIA C. LARGE INTESTINE, TRANSVERSE COLON, POLYP, BIOPSY: - SESSILE SERRATED LESION/POLYP D. LARGE INTESTINE, DESCENDING COLON, POLYP, BIOPSY: - SESSILE SERRATED LESION/POLYP E. LARGE INTESTINE, LEFT COLON, BIOPSY: - PATCHY MILD ARCHITECTURAL DISTORTION; NO EVIDENCE OF ACTIVE IBD - NEGATIVE FOR GRANULOMAS OR DYSPLASIA F. LARGE INTESTINE, RECTOSIGMOID COLON, BIOPSY: - MILDLY ACTIVE CHRONIC COLITIS WITH EROSION - NEGATIVE FOR GRANULOMAS OR DYSPLASIA G. RECTUM, BIOPSY: - PATCHY MILDLY ACTIVE CHRONIC PROCTITIS - NEGATIVE FOR GRANULOMAS OR DYSPLASIA 05/17/2024 12:35 PM EST [facility] at [address] [facility] Clinical Information Z12.11 - Encounter for screening for malignant neoplasm of colon [ICD-10-CM] Preparation of the colon was inadequate. Hemorrhoids found on perianal exam. The examined portion of the ileum was normal. Erythematous mucosa in the ascending colon, Biopsied. Five 5-10 mm polyps in the transverse colon, removed with a cold snare. One large (1 cm or greater) polyp in the transverse colon. Multiple 5-20 mm polyps in the transverse colon and in the descending colon. Resection not attempted. One 15 mm polyp in the transverse colon. Biopsied. One 8 mm polyp in the descending colon, removed with a cold snare. Erythematous and congested mucosa in the rectum and in the recto-sigmoid colon. Biopsied and labeled rectosigmoid and rectum biopsies 05/17/2024 12:35 PM EST [facility] Gross Description A. RIGHT COLON BIOPSY Received in formalin labeled r ight colon biopsy are 2 salas-brown soft tissue fragments measuring 0.2 cm each. Entirely submitted in cassette A1. Cold Time: 0 Nasra Malone B. TRANSVERSE POLYPS Received in formalin labeled t ransverse polyps (5) are 16 salas-brown soft tissue fragments ranging in size from 0.2 to 1.6 cm in greatest dimension. Entirely submitted in cassettes B1-B4. Cold Time: 0 Nasra Malone C. TRANSVERSE POLYP BIOPSY Received in formalin labeled t ransverse polyp biopsy is one salas-brown soft tissue fragment measuring 0.3 cm. Entirely submitted in cassette C1. Cold Time: 0 Nasra Malone D. DESCENDING POLYP Received in formalin labeled d escending polyp is one salas-brown soft tissue fragment measuring 0 0.8 cm in greatest dimension. Entirely submitted in cassette D1. Cold Time: 0 Nasra Malone E. LEFT COLON BIOPSY Received in formalin labeled l eft colon biopsy is one salas-brown soft tissue fragment measuring 0.4 cm. Entirely submitted in cassette E1. Cold Time: 0 Nasra Malone F. RECTOSIGMOID BIOPSY Received in formalin labeled rectosigmoid biopsy are 2 salas-brown soft tissue fragments measuring 0.3 cm each. Entirely submitted in cassette F1. Cold Time: 0 Nasra Malone G. RECTUM BIOPSY Received in formalin labeled r ectum biopsy are 4 salas-brown soft tissue fragments measuring 0.2-0.4 cm. Entirely submitted in cassette G1. Cold Time: 0 Nasra Malone 05/17/2024 12:35 PM EST [facility] Note: A resident was involved in the service. I attest I examined the relevant preparations for the specimens and confirmed the diagnosis or interpretation. 05/17/2024 12:35 PM EST [facility] Tissue Rectum structure / Unknown 05/16/2024 05/16/2024 11:50 AM EST Tissue specimen (specimen) Transverse colon structure / Unknown 05/16/2024 05/16/2024 11:50 AM EST Tissue specimen (specimen) Transverse colon structure / Unknown 05/16/2024 05/16/2024 11:50 AM EST Tissue specimen (specimen) Descending colon structure / Unknown 05/16/2024 05/16/2024 11:50 AM EST Tissue specimen (specimen) Left colon structure / Unknown 05/16/2024 05/16/2024 11:50 AM EST Tissue specimen (specimen) Sigmoid colon structure / Unknown 05/16/2024 05/16/2024 11:50 AM EST Tissue specimen (specimen) Rectum structure / Unknown 05/16/2024 05/16/2024 11:50 AM EST us Luly Robledo DO LAB PATHOLOGY ORDERABLES Fin al Result [facility] [address] [place] [address] documented in this encounter Visit Diagnoses Diagnosis Encounter for screening for malignant neoplasm of colon documented in this encounter Additional Health Concerns Infection Onset Date Last Indicated Resolved Time Influenza 05/01/2024 05/01/2024 05/29/2024 5:23 AM EST Assessment Noted Time PHQ-9 Depression Total Score: 0 05/01/19 8:30 AM EST A fall risk assessment has been complete d for the patient 05/01/2024 8:30 AM EST A Body Mass Index follow-up plan has been documented for the patient 05/01/2024 9:29 AM EST documented as of this encounter Care Teams Baggageman Relationship Specialty Start Date End Date Yazan Daly MD [address] [place], [place] [address] PCP - General 08/15/20 documented as of this encounter
--- OUTSIDE RECORDS SUMMARY | 2024-11-19 13:41 | XMS_ITS | Encounter Summary ---
Author Organization Healthcare Address [address] [place] [address] Care Team Providers Care Drug Safety Physician Name Role Phone Yazan Daly MD Primary Care Provider [phone] Encounter Details Date Type Department Care Team (Late st Contact Info) Description 10/02/2024 Results Follow-Up [facility] Medicine Specialties [address] [place] [address] Juan Carlos Marks MD [address] [place] [address] Social History Tobacco Use Types Packs/Day Years [...] Description 2025 11:40 AM EDT Office Visit [facility] [address] [place] [address] Luly Robledo L, DO [address] [place] [address] documented as of this encounter Visit Diagnoses Not on filedocumented in this encounter Additional Health Concerns Assessment Noted Time PHQ-9 Depression Total Score: 0 08/29/19 11:25 AM EDT A fall risk assessment has been complete d for the patient 08/28/2024 11:26 AM EDT A Body Mass Index follow-up plan has been documented for the patient 05/01/2024 9:29 AM EST documented as of this encounter Care Teams Drug Safety Physician Relationship Specialty Start Date End Date Yazan Daly MD [address] [place] [address] PCP - General 08/15/20 documented as of this encounter
--- OUTSIDE RECORDS SUMMARY | 2024-11-19 13:41 | XMS_ITS | Clinical Summary ---
Author Organization Healthcare Address [address] [place] [address] Care Team Providers Care Commercial Technician Name Role Phone Yazan Daly MD Primary Care Provider [phone] Allergies Active Allergy Reactions Criticality Noted Date Comments Penicillins Hives,Rash Medium 05/01/1959 Medications metFORMIN (Glucophage) 500 MG tablet Take 1 tablet (500 mg) by mouth 1 (one) time each day. 06/07/19 14 Active losartan (Cozaar) 50 MG tablet Take 1 tablet (50 mg) by mouth 1 (one) time each day. 05/01/19 02 Active rosuvastatin (Crestor) 10 MG tablet Take 1 tablet (10 mg) by mouth 1 (one) time each day. 05/01/19 22 Active APW-NQt-IhGh-NaSu lf-Na Asc-C (MoviPrep) 100 g reconstituted solutionIndicatio ns:Colitis Drink 8 oz every 10-15 minutes until solution is gone 1 each 05/02/19 25 Active Additional Information Patient not taking.Reported on 08/28/2024 hydrocortisone (Anusol-HC) 25 MG suppository Insert 1 suppository (25 mg) into the rectum nightly. Take prior to procedure as directed 90 suppository 06/22/19 25 Active Additional Information Patient not taking.Reported on 08/28/2024 mesalamine (Asacol) 800 MG EC tablet Take 4 tablets by mouth daily. 120 tablet 11 06/28/19 25 03/26/2 026 Active metoprolol succinate XL (Toprol-XL) 25 MG 24 hr tablet Take 1 tablet by mouth daily. 08/21/19 25 Active omeprazole (PriLOSEC) [address] capsule Take 1 capsule by mouth daily. 08/06/19 25 Active Active Problems Problem Noted Date Diagnosed Date Influenza 05/01/2024 Piriformis syndrome of left side 05/01/2024 Lumbosacral disc disease 01/07/2015 Sciatica 01/07/2015 Crohn's disease of large intestine without compl ication 12/02/2011 Essential (primary) hypertension 11/12/2011 Encounters Date Type Department Care Team Description 10/02/2024 Results Follow-Up [facility] [address] [place] [address] Juan Carlos Marks MD 10/02/2024 Orders Only [facility] [address] [place] [address] Miriam Castellanos IBD (inflammatory bowel disease) 09/28/2024 Telephone [facility] [address] [place] [address] Marisol Mcintosh, PharmD 08/29/2024 Telephone [facility] [address] [place] [address] Andrea Macario, PharmD Entyvio start 08/29/2024 Orders Only [facility] [address] [place] [address] Juan Carlos Marks MD Crohn's disease of large intestine without complication ([facility]) (Primary Dx) 08/28/2024 11:20 AM EDT Telemedicine [facility] [address] [place] [address] Juan Carlos Marks MD IBD (inflammatory bowel disease) (Primary Dx); External prolapsed hemorrhoids 08/28/2024 Travel from Last 3 Months Immunizations Immunization Administration Dates Next Due Influenza, injectable, quadrivalent 02/02/2021,0 12/06/2019 Influenza, injectable, quadrivalent, preservativ e free 01/07/2017 Influenza, seasonal, injectable, preservative fr ee 01/21/2016 Pneumococcal 20-susan Conj Vaccine 02/16/2023 Pneumococcal Polysaccharide PPV23 12/03/2011 Rsvpref, Recombinant, Protein Subunit, Adjuvent 05/17/2023 Zoster, Recombinant 08/11/2023,05/17/2023 Family History Medical History Relation Name Comments Hyperlipidemia Father Cancer Other 1 Diabetes Other 2 Lung cancer Other 3 Cancer Paternal Grandfather Austin Brand Relation Name Status Comments Father Other 1 Other 2 Other 3 Paternal Grandfather Austin Brand Social History Tobacco Use Types Packs/Day Years [...] on file Sexual Orientation Not on file Last Filed Vital Signs Vital Sign Reading [...] Mass Index 30.86 08/28/2024 11:25 AM EDT Plan of Treatment Upcoming Encounters Date Type Department Care Team (Late st Contact Info) Description 2025 11:40 AM EDT Office Visit [facility] [address] [place] [address] Luly Robledo L, DO [address] [place] [address] Health Maintenance Due Date Last Done Comments [facility]-Hepatitis C Screening 1960 [facility]-Medicare Annual Wellness (AWV) 1960 [facility]-Infant/Child/Adol SDOH Screenings 1960 [facility]- SDOH Screenings 01/30/1976 [facility]-Adult SDOH Screenings 01/30/1976 [facility]-DTaP,Tdap,and Td Vaccines (1 - Tdap) 1977 CT Colonography 2003 FIT-DNA 2003 FIT 2003 FOBT 2003 Sigmoidoscopy 2003 [id number]-WHMZQ-70 Vaccine (3 - Moderna risk series) 07/23/2020 06/25/2020, 05/28/2020 [facility]-Abdominal Aortic Aneurysm (AAA) Screening 2023 [facility]-Influenza Vaccine (#1) 12/03/202402/02, 12/06/2019, 01/07/2017, Additional history exists [facility]-Depression Screening 08/28/2025 08/28/2024, 08/03 Colonoscopy 05/16/2034 05/16/2024, 05/05, 03/30/2017, Additional history exists [facility]-Colorectal Cancer Screening 05/16/2034 [facility]-Pneumococcal Vaccine: 50+ Years Completed 02/16/2023, 12/03/2011 [facility]-RSV Vaccine: 60+ Years or Completed 05/17/2023 [facility]-Zoster Vaccines Completed 08/11/2023, [facility]-Obesity Intervention Completed 05/01/2024 HPV Vaccines Aged Out No longer eligi ble based on patient's age to complete this topic [facility]-HIB Vaccines Aged Out No longer e ligible based on patient's age to complete this topic [facility]-Hepatitis A Vaccines Aged Out No longer eligible based on patient's age to complete this topic [facility]-IPV Vaccines Aged Out No longer e ligible based on patient's age to complete this topic [facility]-Rotavirus Vaccines Aged Out No lo nger eligible based on patient's age to complete this topic Procedures Procedure Name Priority Date/Time Associated Diagnosis Comments CBC WITH AUTO DIFFERENTIAL Routine 10/02/2024 7:43 AM EDT IBD (inflammatory bowel disease) COMPREHENSIVE METABOLIC PANEL, PLASMA Routine 10/02/2024 7:43 AM EDT IBD (inflammatory bowel disease) IRON & TOTAL IRON BINDING CAPACITY, PLASMA (INCLUDES TRANSFERRIN) Routine 10/02/2024 7:43 AM EDT IBD (inflammatory bowel disease) COLONOSCOPY 05/16/2024 8:41 AM EST from Last 3 Months or Most Recently Relevant to Health Maintenance Results * Iron & Total Iron Binding Capacity, Plasma (Includes Transferrin) (10/02/2024 7:43 AM EDT) Blood Venous blood specimen / Unknown us Juan Carlos Marks MD LAB BLOOD ORDERABLES Final Result Performing Organization Address [facility] de Phone Number EXTERNAL LAB * CBC and differential (10/02/2024 7:43 AM EDT) Blood Venous blood specimen / Unknown us Juan Carlos Marks MD LAB BLOOD ORDERABLES Final Result Performing Organization Address [facility] de Phone Number EXTERNAL LAB * Comprehensive metabolic panel (10/02/2024 7:43 AM EDT) Blood Venous blood specimen / Unknown us Juan Carlos Marks MD LAB BLOOD ORDERABLES Final Result Performing Organization Address [facility] Co de Phone Number EXTERNAL LAB * Colonoscopy (05/16/2024 8:41 AM EST) Anatomical Region Laterality Modality Endoscopy 05/16/2024 7:32 AM EST Impressions 05/16/2024 8:41 AM EST Please see media tab for the result. Information added by interface. Narrative Procedure Note Luly Robledo, DO - 05/16/2024 IMPRESSION: Please see media tab for the result. Information added by interface. us External Provider GI PROCEDURE ORDERABLES Final Result from Last 3 Months or Most Recently Relevant to Health Maintenance Insurance [facility] [place] [address] MEDICARE Member Subscriber Plan / Payer (Ef fective 2024-Present) Name:Raad Brand Member ID:[id number] Relation to Subscriber:Self Name:Raad Brand Subscriber ID:[id number] Payer ID:MEDICARE Group ID:Not on file Type:Medicare Address: [place] [id number] Care Teams Commercial Technician Relationship Specialty Start Date End Date Yazan Daly MD [address] [place] [address] PCP - General 08/15/20
--- OUTSIDE RECORDS SUMMARY | 2024-11-19 13:41 | XMS_ITS | Encounter Summary ---
Author Organization Healthcare Address [address] [place] [address] Care Team Providers Care Organ Grinder Name Role Phone Yazan Daly MD Primary Care Provider [phone] Reason for Visit * Reason Onset Date Comments Entyvio start 08/29/2024 Encounter Details Date Type Department Care Team (Late st Contact Info) Description 08/29/2024 Telephone [facility] [address] [place] [address] Andrea Macario, PharmD Entyvio start Social History Tobacco Use Types Packs/Day Years [...] on file documented as of this encounter Miscellaneous Notes * Telephone Encounter - Mary Green RN - 10/02/2024 12:12 PM EDT See second telephone encounter for further follow up. documented in this encounter Plan of Treatment Upcoming Encounters Date Type Department Care Team (Late st Contact Info) Description 2025 11:40 AM EDT Office Visit [facility] [address] [place] [address] Luly Robledo L, DO [address] [place] [address] documented as of this encounter [...] documented as of this encounter Care Teams Organ Grinder Relationship Specialty Start Date End Date Yazan Daly MD [address] [place] [address] PCP - General 08/15/20 documented as of this encounter
--- OUTSIDE RECORDS SUMMARY | 2024-11-19 13:41 | XMS_ITS | Encounter Summary ---
Author Organization [facility] Address [address] [place] [address] Care Team Providers Care Rn Invasive Name Role Phone Yazan Daly MD Primary Care Provider [phone] Encounter Details Date Type Department Care Team (Late st Contact Info) Description 10/02/2024 Orders Only [facility] Medicine [facility]ties [address] [place] [address] Miriam Castellanos [place] [address] IBD (inflammatory bowel disease) Social History Tobacco Use Types Packs/Day Years [...] Description 2025 11:40 AM EDT Office Visit [facility] [address] [place] [address] Luly Robledo, DO [address] [place] [address] documented as of this encounter Procedures Procedure Name Priority Date/Time Associated Diagnosis Comments IRON & TOTAL IRON BINDING CAPACITY, PLASMA (INCLUDES TRANSFERRIN) Routine 10/02/2024 7:43 AM EDT IBD (inflammatory bowel disease) CBC WITH AUTO DIFFERENTIAL Routine 10/02/2024 7:43 AM EDT IBD (inflammatory bowel disease) COMPREHENSIVE METABOLIC PANEL, PLASMA Routine 10/02/2024 7:43 AM EDT IBD (inflammatory bowel disease) documented in this encounter Results * CBC and differential (10/02/2024 7:43 AM EDT) Blood Venous blood specimen / Unknown us Juan Carlos Marks MD LAB BLOOD ORDERABLES Final Result Performing Organization Address [facility] de Phone Number EXTERNAL LAB * Comprehensive metabolic panel (10/02/2024 7:43 AM EDT) Blood Venous blood specimen / Unknown Result Nini Marks MD LAB BLOOD ORDERABLES Final Result Performing Organization Address [facility] Co de Phone Number EXTERNAL LAB * Iron & Total Iron Binding Capacity, Plasma (Includes Transferrin) (10/02/2024 7:43 AM EDT) Blood Venous blood specimen / Unknown us Juan Carlos Marks MD LAB BLOOD ORDERABLES Final Result Performing Organization Address [facility] de Phone Number EXTERNAL LAB documented in this encounter Visit Diagnoses Diagnosis IBD (inflammatory bowel disease) Other and unspecified noninfectious gastroenteritis and colitis documented in this encounter Additional Health Concerns Assessment Noted Time PHQ-9 Depression Total Score: 0 08/29/19 25 11:25 AM EDT A fall risk assessment has been complete d for the patient 08/28/2024 11:26 AM EDT A Body Mass Index follow-up plan has been documented for the patient 05/01/2024 9:29 AM EST documented as of this encounter Care Teams Rn Invasive Relationship Specialty Start Date End Date Yazan Daly MD [address] [place] [address] PCP - General 08/15/20 documented as of this encounter
--- OUTSIDE RECORDS SUMMARY | 2024-11-19 13:41 | XMS_ITS | Encounter Summary ---
Author Organization Healthcare Address [address] [place] [address] Care Team Providers Care Shear Grinder Operator Helper Name Role Phone Yazan Daly MD Primary Care Provider [phone] Reason for Referral * Consultation (Routine) - Closed Specialty Diagnoses / Procedures Referred By Contcarter babin Referred To Contact Gastroenterology Diagnoses Crohn's disease of rectum without complication (CMS/HCC) Irritable bowel syndrome, unspecified type Chet Greer MD [address] [place] [address] Phone: tel: fax: Kelsi Singh MD [address] [facility] [address] [place] [address] Phone: tel: fax: Referral ID Status Reason Start Date Expiration Date V isits Requested Visits Authorized [id number] Closed Specialty Services Required 04/02/2024 10/02/2025 1 1 Encounter Details Date Type Department Care Team (Latest Contact Info) Description 04/02/2024 [facility] [address] [place] [address] Chet Greer MD [address] [place] [address] Crohn's disease of rectum without complication (CMS/HCC) (Primary Dx); Irritable bowel syndrome, unspecified type Social History Tobacco Use Types Packs/Day Years Used Date Smoking Tobacco: Former Alcohol Use Standard Drinks/Week Comments Yes 0 (1 standard drink = 0.6 oz pur e alcohol) Sex and Gender Information Value Date Recorded Sex Assigned at Not on file Legal Sex Male 8:58 PM EDT Gender Identity Not on file Sexual Orientation Not on file documented as of this encounter Plan of Treatment Upcoming Encounters Date Type Department Care Team (Late st Contact Info) Description 2025 11:40 AM EDT Office Visit [facility] [address] [place] [address] Luly Robledo L, DO [address] [place] [address] Scheduled Referrals Name Type Priority Associated Diagnoses Order Schedule Ambulatory referral to Gastroenterology Outpatient Referral Routine Crohn's disease of rectum without complication (CMS/HCC) Irritable bowel syndrome, unspecified type Expected: 04/16/2024, Expires: 04/02/2025 documented as of this encounter Visit Diagnoses Diagnosis Crohn's disease of rectum without complication (CMS/HCC)- Primary Irritable bowel syndrome, unspecified type documented in this encounter Additional Health Concerns Infection Onset Date Last Indicated Resolved Time Influenza 05/01/2024 05/01/2024 05/29/2024 5:23 AM EST documented as of this encounter Care Teams Shear Grinder Operator Helper Relationship Specialty Start Date End Date Yazan Daly MD [address] [place] [address] PCP - General 08/15/20 documented as of this encounter
--- OUTSIDE RECORDS SUMMARY | 2024-11-19 13:41 | XMS_ITS | Encounter Summary ---
Author Organization Healthcare Address [address] [place] [address] Care Team Providers Care Multi Sensor Operator Name Role Phone Yazan Daly MD Primary Care Provider [phone] Encounter Details Date Type Department Care Team (Late st Contact Info) Description 09/28/2024 Telephone [facility] [address] [place] [phone] Marisol Mcintosh, PharmD Social History Tobacco Use Types Packs/Day Years [...] encounter Miscellaneous Notes * Telephone Encounter - Marisol Mcintosh, PharmD - 11/02/2024 9:36 AM EDT Patient has been approved to receive infusion treatment at outside facility. [facility] will follow up with facility to make sure patient has been scheduled and received first dose. Specialty Medication: Entyvio Filling Pharmacy/SOC: [facility] * Telephone Encounter - Marisol Mcintosh PharmD - 11/02/2024 9:02 AM EDT Medicare B/Advantage Plan Authorization Information Specialty Medication: Entyvio Diagnosis Code: K50.10 J-code/CPT code/S code: J3380/ [id number]/ S9379 Covered by Medicare B: Yes Does the diagnosis, dose, and frequency match an FDA approved dosing schedule? Yes, list prescribeddose/frequency: Entyvio 300mg IV on weeks 0,2,6 then every 8 weeks Site of Care: [facility] Does patient have an Advantage Plan? No. Will review in 12 months. * Telephone Encounter - Mary Green RN - 10/17/2024 11:13 AM EDT Awaiting additional information regarding pt's Entyvio therapy and new insurance plan with pt's [facility] at this time. * Telephone Encounter - Marisol Mcintosh PharmD - 09/28/2024 11:58 AM EDT [facility] Specialty Education Summary Patient was assessed via phone for initiation of drug therapy Entyvio for diagnosis Chron's. Plan for administration of therapy in infusion center and planned date of initiation: FE. Anticipated filling pharmacy is [facility]. Education and Counseling Medication specific education provided: Patient was offered counseling of their specialty medication and declined education. Patient specific/therapeutic goal(s) of therapy: Alleviate signs and symptoms of disease Summary/Plan Pharmacist reviewed patient chart for allergies and current medication list, comorbidities, relevant medical history, potential barriers to care and mitigation of those barriers, if applicable. Therapy is clinically appropriate given patient's condition. Any available financial resources were discussed with patient and utilized if appropriate. Patient has no other identified problems or needs at this time as it pertains to this specialty medication. Marisol Mcintosh PharmD 09/28/24 11:58 AM * Telephone Encounter - Marisol Mcintosh PharmD - 09/28/2024 11:53 AM EDT [facility] has received therapy plan for medication Entyvio. [facility] has contacted the patient and are in the process of completing the authorization for preferred site of care. documented in this encounter Plan of Treatment Upcoming Encounters Date Type Department Care Team (Late st Contact Info) Description 2025 11:40 AM EDT Office Visit [facility] Medicine [facility]ties [address], [address] [place] [address] Luly Robledo L, DO [address] [place] [address] documented as of this encounter [...] documented as of this encounter Care Teams Multi Sensor Operator Relationship Specialty Start Date End Date Yazan Daly MD [address] [place] [address] PCP - General 08/15/20 documented as of this encounter
[2024-11-19 14:10] VITALS: BP 126/74; PULSE 72; RESP 18; O2SAT 95
[2024-11-19] MEDS: VEDOLIZUMAB 300 MG in 0.9 % SODIUM CHLORIDE 250 ML 500 MG IV (14:10)
[2024-11-19 14:34] LABS: Hematocrit 43.5 % (42.0-52.0); Hemoglobin 14.9 g/dL (14.1-18.0); Immature Granulocytes % 0.4 %; Mean Corpuscular HGB Conc 34.3 g/dL (31.8-35.4); Mean Corpuscular Hemoglobin 29.6 pg (27.0-31.2); Mean Corpuscular Volume 86.5 fl (80-94); Nucleated Red Blood Cells % 0 %; Platelet Count 220 K/mm3 (142-424); Red Blood Count 5.03 M/mm3 (4.60-6.20); Red Cell Distribution Width-SD 38.2 fL; White Blood Count 7.2 K/mm3 (4.8-10.8)
[2024-11-19 14:48] LABS: Albumin Level 4.5 g/dl (3.5-5.0); Chloride 105 mmol/L (98-107); Potassium 3.9 mmoL/L (3.5-5.1); Sodium 137 mmol/L (136-145)
[2024-11-19 14:50] VITALS: BP 143/85; PULSE 68; RESP 18; O2SAT 95
[2024-11-19 14:50] LABS: Blood Urea Nitrogen 15 mg/dl (9-20); Creatinine,Serum 0.80 mg/dl (0.66-1.25); Estimated Glomerular Filt Rate 97 ml/min (>60); GFR (African American) 117 ML/MIN (>60)
[2024-11-19 14:51] LABS: Alanine Aminotransferase 79 U/L (12-78); Albumin/Globulin Ratio 1.7 (1.1-1.8); Alkaline Phosphatase 73 U/L (38-126); Anion Gap 12.9 mEq/L (5-15); Aspartate Amino Transferase 53 U/L (17-59); Bilirubin,Total 1.0 mg/dl (0.2-1.3); Calcium 9.4 mg/dl (8.4-10.2); Carbon Dioxide 23 mmol/L (22.0-30.0); Globulin 2.6 g/dL (1.3-3.2); Glucose 155 mg/dl (74-100); Total Protein,Serum 7.1 g/dl (6.3-8.2)
[2024-11-19 14:56] LABS: C-Reactive Protein 1.0 mg/L (0-4)
== END 2024-11-19 14:50 | disposition home or self-care (01) ==
PROVIDERS: PCP Family Medicine; Visit Provider Internal Medicine Gastroenterology
DX: K50.10 Crohn's disease of large intestine without complications (principal)
CPT/HCPCS: 80053; 85025; 86140; 96413; J3380; J7050

== ENCOUNTER 2024-12-05 13:47 | Outpatient (CLI) | payer MEDICARE, SELFPAY ==
[2024-12-05] MEDS: VEDOLIZUMAB 300 MG in 0.9 % SODIUM CHLORIDE 250 ML 500 MG IV (14:06)
[2024-12-05] MEDS: SODIUM CHLORIDE 0.9% 10ML FLUSH SYRINGE 10 ML IV (14:07)
[2024-12-05 14:08] LABS: Hematocrit 40.8 % (42.0-52.0); Hemoglobin 14.7 g/dL (14.1-18.0); Immature Granulocytes % 0.4 %; Mean Corpuscular HGB Conc 36.0 g/dL (31.8-35.4); Mean Corpuscular Hemoglobin 30.9 pg (27.0-31.2); Mean Corpuscular Volume 85.7 fl (80-94); Nucleated Red Blood Cells % 0 %; Platelet Count 217 K/mm3 (142-424); Red Blood Count 4.76 M/mm3 (4.60-6.20); Red Cell Distribution Width-SD 38.3 fL; White Blood Count 5.1 K/mm3 (4.8-10.8)
[2024-12-05 14:10] VITALS: BP 138/71; PULSE 70; RESP 18; TEMP 36.6; O2SAT 98
[2024-12-05 14:26] LABS: Chloride 109 mmol/L (98-107); Potassium 3.6 mmoL/L (3.5-5.1); Sodium 138 mmol/L (136-145)
[2024-12-05 14:28] LABS: Blood Urea Nitrogen 18 mg/dl (9-20); Creatinine,Serum 0.70 mg/dl (0.66-1.25); Estimated Glomerular Filt Rate 113 ml/min (>60); GFR (African American) 137 ML/MIN (>60)
[2024-12-05 14:29] LABS: Alanine Aminotransferase 45 U/L (12-78); Alkaline Phosphatase 69 U/L (38-126); Anion Gap 11.6 mEq/L (5-15); Aspartate Amino Transferase 43 U/L (17-59); Bilirubin,Total 1.0 mg/dl (0.2-1.3); Calcium 9.4 mg/dl (8.4-10.2); Carbon Dioxide 21 mmol/L (22.0-30.0); Glucose 172 mg/dl (74-100); Total Protein,Serum 6.7 g/dl (6.3-8.2)
[2024-12-05 14:45] VITALS: BP 149/76; PULSE 71
[2024-12-05 14:59] LABS: C-Reactive Protein 1.7 mg/L (0-4)
[2024-12-05 18:45] LABS: Albumin Level 4.2 g/dl (3.5-5.0); Albumin/Globulin Ratio 1.7 (1.1-1.8); Globulin 2.5 g/dL (1.3-3.2)
== END 2024-12-05 14:59 | disposition home or self-care (01) ==
LOC: INF 13:48
PROVIDERS: PCP Family Medicine; Visit Provider Internal Medicine Gastroenterology
DX: K50.10 Crohn's disease of large intestine without complications (principal)
CPT/HCPCS: 80053; 85025; 86140; 86480; 96365; J3380; J7050

== ENCOUNTER 2025-01-02 13:52 | Outpatient (CLI) | payer MEDICARE, SELFPAY ==
--- OUTSIDE RECORDS SUMMARY | 2025-01-02 13:57 | XMS_ITS | Encounter Summary ---
Author Organization Healthcare Address [address] [place] [address] Care Team Providers Care Field Tech Name Role Phone Yazan Daly MD Primary Care Provider [phone] Encounter Details Date Type Department Care Team (Late st Contact Info) Description 05/16/2024 Lab Requisition [facility] [address] [place] [address] Luly Robledo L, DO [address] [place] [address] Encounter for screening for malignant [...] Description 2025 11:40 AM EDT [facility] [address] [place] [address] Luly Robledo DO [address] [place] [phone] documented as of this encounter Procedures Procedure Name Priority Date/Time Associated Diagnosis Comments SURGICAL PATHOLOGY EXAM Routine 05/16/2024 Encounter for screening for malignant neoplasm of colon documented in this encounter Results * Surgical Pathology Exam (05/16/2024) Case Report Surgical Pathology Case: [id number] Authorizing Provider: Luly Robledo DO Collected: 05/16/2024 Ordering Location: [facility] Received: 05/16/2024 1150 Pathologist: Sumanth Gómez MD Specimens: A) - Colon, Right, right colon biopsy B) - Transverse Colon, transverse polyps C) - Transverse Colon, transverse polyp biopsy D) - Descending Colon, descending polyp E) - Colon, Left, left colon biopsy F) - Sigmoid Colon, rectosigmoid biopsy G) - Rectum, rectum biopsy 05/17/2024 12:35 PM EST [facility] Final Diagnosis A. LARGE INTESTINE, RIGHT [...] GRANULOMAS OR DYSPLASIA 05/17/2024 12:35 PM EST [facility] at [address] [facility] Clinical Information Z12.11 - Encounter for screening [...] and rectum biopsies 05/17/2024 12:35 PM EST [facility] Gross Description A. RIGHT COLON BIOPSY [...] 0 Nasra Malone 05/17/2024 12:35 PM EST [facility] Note: A resident was involved in the service. I attest I examined the relevant preparations for the specimens and confirmed the diagnosis or interpretation. 05/17/2024 12:35 PM EST [facility] Tissue Rectum structure / Unknown 05/16/2024 [...] DO LAB PATHOLOGY ORDERABLES Fin al Result [facility] [address] [place] [address] documented in this encounter Visit Diagnoses Diagnosis [...] documented as of this encounter Care Teams Field Tech Relationship Specialty Start Date End Date Yazan Daly MD [address] [place], [place] [address] PCP - General 08/15/20 documented as of this encounter
--- OUTSIDE RECORDS SUMMARY | 2025-01-02 13:57 | XMS_ITS | Encounter Summary ---
Author Organization Healthcare Address [address] [place] [address] Care Team Providers Care Demurrage Worker Name Role Phone Yazan Daly MD Primary Care Provider [phone] Encounter Details Date Type Department Care Team (Late st Contact Info) Description 09/28/2024 Telephone [facility] [address] [place] [phone] Marisol Mcintosh, PharmD Social History Tobacco Use [...] Telephone Encounter - Mary Green RN - 12/11/2024 7:36 AM EDT Reviewed pt's chart: - TB Gold completed - 12/05/2024; uploaded under Media tab - CBC with diff, CMP, CRP uploaded under Media tab Entyvio week 6 due on or around - 01/02/2025 * Telephone Encounter - Mary Green RN - 12/07/2024 3:16 PM EDT Called [facility] to follow up: - Lab staff confirmed TB Gold was drawn on 12/05/2024 and has been sent to a reference lab for processing. * Telephone Encounter - Mary Green RN - 11/27/2024 10:02 AM EDT Reviewed pt's chart: - CBC with diff, CMP, CRP results from 11/19/2024 uploaded under Media tab Faxed therapy plan with TB Gold order to be completed with standing infusion lab work orders at [facility] week 2 infusion, scheduled for 12/04/2024: - [facility] - F: [phone] - Via [employer] on 11/27/2024 at 1004am * Telephone Encounter - Mary Green RN - 11/22/2024 1:18 PM EDT Updated pt's infusion order, to draw TB Gold at time of pt's next infusion with standing infusion lab work orders; next infusion scheduled for 12/03/2024. * Telephone Encounter - Mary Green RN - 11/20/2024 2:55 PM EDT Will plan to have TB Gold draw with pt's next infusion scheduled for 12/03/2024. * Telephone Encounter - Marisol Mcintosh PharmD - 11/02/2024 9:36 AM EDT Patient has been approved to receive infusion treatment at outside facility. [facility] will follow up with facility to make sure patient has been scheduled and received first dose. Specialty Medication: Entyvio Filling Pharmacy/SOC: [facility] * Telephone Encounter - Marisol Mcintosh PharmD - 11/02/2024 9:02 AM EDT Medicare B/Advantage Plan Authorization Information Specialty Medication: Entyvio Diagnosis Code: K50.10 J-code/CPT code/S code: J3380/ [id number],39775/ S9379 Covered by Medicare B: Yes Does the diagnosis, dose, and frequency match an FDA approved dosing schedule? Yes, list prescribeddose/frequency: Entyvio 300mg IV on weeks 0,2,6 then every 8 weeks Site of Care: [facility] Does patient have an Advantage Plan? No. Will review in 12 months. * Telephone Encounter - Mary Green RN - 10/17/2024 11:13 AM EDT Awaiting additional information regarding pt's Entyvio therapy and new insurance plan with pt's senior care at this time. * Telephone Encounter - Marisol Mcintosh PharmD - 09/28/2024 11:58 AM EDT [facility] Specialty Education Summary Patient was assessed via phone for initiation of drug therapy Entyvio for diagnosis Chron's. Plan for administration of therapy in infusion center and planned date of initiation: FE. Anticipated filling pharmacy is [facility]. Education and Counseling Medication specific education provided: [...] Mcintosh PharmD - 09/28/2024 11:53 AM EDT [facility] therapy plan for medication Entyvio. [facility] has contacted the patient and are in the process of completing the authorization for preferred site of care. documented in this encounter Plan of Treatment Upcoming Encounters Date Type Department Care Team (Late st Contact Info) Description 2025 11:40 AM EDT Office Visit [facility] Medicine Specialties [address] [place] [phone] Luly Robledo L, DO [address] [place] [address] documented as of this encounter Visit Diagnoses [...] documented as of this encounter Care Teams Demurrage Worker Relationship Specialty Start Date End Date Yazan Daly MD [address] [place] [address] PCP - General 08/15/20 documented as of this encounter
--- OUTSIDE RECORDS SUMMARY | 2025-01-02 13:57 | XMS_ITS | Encounter Summary ---
Author Organization Healthcare Address [address] [place] [address] Care Team Providers Care Detail Drafter Name Role Phone Yazan Daly MD Primary Care Provider [phone] Encounter Details Date Type Department Care Team (Late st Contact Info) Description 10/02/2024 Results Follow-Up [facility] Medicine Specialties [address] [place] [address] Juan Carlos Marks MD [address] [place] [address] Social History Tobacco Use Types [...] Description 2025 11:40 AM EDT Office Visit [facility] Medicine Specialties [address] [place] [address] Luly Robledo L, DO [address] [place] [address] documented as of this encounter [...] documented as of this encounter Care Teams Detail Drafter Relationship Specialty Start Date End Date Yazan Daly MD [address] [place] [address] PCP - General 08/15/20 documented as of this encounter
--- OUTSIDE RECORDS SUMMARY | 2025-01-02 13:57 | XMS_ITS | Encounter Summary ---
Author Organization Healthcare Address [address] [place] [address] Care Team Providers Care Aerophysicist Name Role Phone Yazan Daly MD Primary Care Provider [phone] Encounter Details Date Type Department Care Team (Late st Contact Info) Description 11/22/2024 Orders Only [facility] Medicine Specialties [address] [place] [address] Juan Carlos Marks MD [address] [place] [address] Crohn's disease of large intestine without complication (CMS/HCC) (Primary Dx) Social History Tobacco Use Types Packs/Day Years [...] Description 2025 11:40 AM EDT Office Visit [facility] Medicine Specialties [address] [place] [address] Luly Robledo L, DO [address] [place] [address] documented as of this encounter Visit Diagnoses Diagnosis Crohn's disease of large intestine without complication- Primary documented in this encounter Additional Health Concerns Assessment Noted Time PHQ-9 Depression Total Score: 0 08/29/19 11:25 AM EDT A fall risk assessment has been complete d for the patient 08/28/2024 11:26 AM EDT A Body Mass Index follow-up plan has been documented for the patient 05/01/2024 9:29 AM EST documented as of this encounter Care Teams Aerophysicist Relationship Specialty Start Date End Date Yazan Daly MD [address] [place] [address] PCP - General 08/15/20 documented as of this encounter
--- OUTSIDE RECORDS SUMMARY | 2025-01-02 13:57 | XMS_ITS | Encounter Summary ---
Author Organization [facility] Address [address] [place] [address] Care Team Providers Care Box Worker Name Role Phone Yazan Daly MD Primary Care Provider [phone] Encounter Details Date Type Department Care Team (Late st Contact Info) Description 12/10/2024 Orders Only [facility] Medicine Specialties [address] [place] [address] [place] [address] Crohn's disease of large intestine without complication (CMS/HCC) Social History Tobacco Use Types Packs/Day Years [...] Description 2025 11:40 AM EDT Office Visit [facility] Medicine Specialties [address] [place] [address] Luly Robledo, DO [address] [place] [address] documented as of this encounter Procedures Procedure Name Priority Date/Time Associated Diagnosis Comments QUANTIFERON TB GOLD PLUS Routine 12/10/2024 9:29 AM EDT Crohn's disease of large intestine without complication (CMS/HCC) documented in this encounter Results * Quantiferon TB Gold (12/10/2024 9:29 AM EDT) Blood Venous blood specimen / Unknown Juan Carlos Marks MD LAB BLOOD ORDERABLES Final Result EXTERNAL LAB documented in this encounter Visit Diagnoses Diagnosis Crohn's disease of large intestine without complication documented in this encounter Additional Health Concerns Assessment Noted Time PHQ-9 Depression Total Score: 0 08/29/19 25 11:25 AM EDT A fall risk assessment has been complete d for the patient 08/28/2024 11:26 AM EDT A Body Mass Index follow-up plan has been documented for the patient 05/01/2024 9:29 AM EST documented as of this encounter Care Teams Box Worker Relationship Specialty Start Date End Date Yazan Daly MD [address] [place] [address] PCP - General 08/15/20 documented as of this encounter
--- OUTSIDE RECORDS SUMMARY | 2025-01-02 13:57 | XMS_ITS | Clinical Summary ---
Author Organization Healthcare Address [address] [place] [address] Care Team Providers Care Finance Effectiveness Manager Name Role Phone Yazan Daly MD Primary Care Provider [phone] Allergies Active Allergy Reactions Criticality Noted Date [...] (one) time each day. 05/01/19 22 Active KKZ-[id number]-NaSu lf-Na Asc-C (MoviPrep) 100 g reconstituted solutionIndicatio [...] Active Problems Problem Noted Date Diagnosed Date Piriformis syndrome of left side 05/01/2024 Lumbosacral disc disease 01/07/2015 Sciatica 01/07/2015 Crohn's disease of large intestine without compl ication 12/02/2011 Essential (primary) hypertension 11/12/2011 Resolved Problems Problem Noted Date Diagnosed Date Resolved Date Influenza 05/01/2024 12/23/2024 Encounters Date Type Department Care Team Description 12/10/2024 Orders Only [facility] Medicine Specialties [address] [place] [address] Carole [place] Crohn's disease of large intestine without complication (CMS/HCC) 11/22/2024 Orders Only [facility] Medicine Specialties [address] [place] [address] Juan Carlos Marks MD Crohn's disease of large intestine without complication (CMS/HCC) (Primary Dx) 11/21/2024 Results Follow-Up [facility] Medicine Specialties [address] [facility] [place] [address] Juan Carlos Marks MD 11/20/2024 Orders Only [facility] Medicine Specialties [address] [facility] [place] [address] Juan Carlos Marks MD 10/02/2024 Results Follow-Up [facility] Medicine Specialties [address] [facility] [place] [address] Juan Carlos Marks MD 10/02/2024 Orders Only [facility] Medicine Specialties [address] [place] [address] Miriam Castellanos IBD (inflammatory bowel disease) from Last 3 Months Immunizations Immunization Administration [...] Description 2025 11:40 AM EDT Office Visit [facility] [address] [place] [address] Luly Robledo L, DO [address] [place] [address] Health Maintenance Due Date Last Done Comments [facility]-Hepatitis C Screening 1960 [facility]-Medicare Annual Wellness (AWV) 1960 [facility]-/Child/Adol SDOH Screenings 1960 [facility]- SDOH Screenings 01/30/1976 [facility]-Adult SDOH Screenings 01/30/1976 [facility]-DTaP,Tdap,and Td Vaccines (1 - Tdap) 1977 CT Colonography 2003 FIT-DNA 2003 FIT 2003 FOBT 2003 Sigmoidoscopy 2003 [id number] Vaccine (3 - Moderna risk series) 07/23/2020 [...] disease of large intestine without complication (CMS/HCC) COMPLETE METABOLIC PROFILE (CMP) Routine 11/20/2024 10:30 AM EDT C-REACTIVE PROTEIN, PLASMA Routine 11/20/2024 10:30 AM EDT CBC W/O DIFFERENTIAL Routine 11/20/2024 10:30 AM EDT CBC WITH AUTO DIFFERENTIAL Routine 10/02/2024 7:43 AM EDT IBD (inflammatory bowel disease) COMPREHENSIVE METABOLIC PANEL, PLASMA Routine 10/02/2024 7:43 AM EDT IBD (inflammatory bowel disease) IRON & TOTAL IRON BINDING CAPACITY, PLASMA (INCLUDES TRANSFERRIN) Routine 10/02/2024 7:43 AM EDT IBD (inflammatory bowel disease) COLONOSCOPY 05/16/2024 8:41 AM EST from Last 3 Months or Most Recently Relevant to Health Maintenance Results * Quantiferon TB Gold (12/10/2024 9:29 AM EDT) Blood Venous blood specimen / Unknown Juan Carlos Marks MD LAB BLOOD ORDERABLES Final Result EXTERNAL LAB * COMPLETE METABOLIC PROFILE (CMP) (11/20/2024 10:30 AM EDT) us Juan Carlos Marks MD LAB BLOOD ORDERABLES Final Result * CBC W/O Differential (11/20/2024 10:30 AM EDT) Blood Venous blood specimen / Unknown us Juan Carlos Marks MD LAB BLOOD ORDERABLES Final Result * C-Reactive Protein, Plasma (11/20/2024 10:30 AM EDT) Blood Venous blood specimen / Unknown Result [facility] Juan Carlos Marks MD LAB BLOOD ORDERABLES Final Result * Iron & Total Iron Binding Capacity, Plasma (Includes Transferrin) (10/02/2024 7:43 AM EDT) Blood Venous blood specimen / Unknown Result [facility] Juan Carlos Marks MD LAB BLOOD ORDERABLES Final Result Performing Organization Address [facility] de Phone Number EXTERNAL LAB * CBC and differential (10/02/2024 7:43 AM EDT) Blood Venous blood specimen / Unknown Result [facility] Juan Carlos Marks MD LAB BLOOD ORDERABLES Final Result Performing Organization Address [facility] de Phone Number EXTERNAL LAB * Comprehensive metabolic panel (10/02/2024 7:43 AM EDT) Blood Venous blood specimen / Unknown Result [facility] Juan Carlos Marks MD LAB BLOOD ORDERABLES Final Result Performing Organization Address [facility] de Phone Number EXTERNAL LAB * Colonoscopy (05/16/2024 8:41 AM EST) Anatomical Region Laterality Modality Endoscopy 05/16/2024 7:32 AM EST Impressions 05/16/2024 8:41 AM EST Please see media tab for the result. Information added by interface. Narrative Procedure Note Luly Robledo, DO - 05/16/2024 IMPRESSION: Please see media tab for the result. Information added by interface. External Provider GI PROCEDURE ORDERABLES Final Result from Last 3 Months or Most Recently Relevant to Health Maintenance Insurance MEDICARE Care Teams Finance Effectiveness Manager Relationship Specialty Start Date End Date Yazan Daly MD [address] [place] [address] PCP - General 08/15/20
--- OUTSIDE RECORDS SUMMARY | 2025-01-02 13:57 | XMS_ITS | Encounter Summary ---
Author Organization Healthcare Address [address] [place] [address] Care Team Providers Care Outbound Sales Executive Name Role Phone Yazan Daly MD Primary Care Provider [phone] Encounter Details Date Type Department Care Team (Late st Contact Info) Description 11/20/2024 Orders Only [facility] Medicine Specialties [address] [place] [address] Juan Carlos Marks MD [address] [place] [address] Social History Tobacco Use Types [...] Description 2025 11:40 AM EDT Office Visit [facility] Medicine Specialties [address], [address] [place] [address] Luly Robledo L, DO [address] [place] [address] documented as of this encounter Procedures Procedure Name Priority Date/Time Associated Diagnosis Comments COMPLETE METABOLIC PROFILE (CMP) Routine 11/20/2024 10:30 AM EDT CBC W/O DIFFERENTIAL Routine 11/20/2024 10:30 AM EDT C-REACTIVE PROTEIN, PLASMA Routine 11/20/2024 10:30 AM EDT documented in this encounter Results * COMPLETE METABOLIC PROFILE (CMP) (11/20/2024 10:30 [...] Marks MD LAB BLOOD ORDERABLES Final Result documented in this encounter Visit Diagnoses Not on filedocumented [...] documented as of this encounter Care Teams Outbound Sales Executive Relationship Specialty Start Date End Date Yazan Daly MD [address] [place] [address] PCP - General 08/15/20 documented as of this encounter
--- OUTSIDE RECORDS SUMMARY | 2025-01-02 13:57 | XMS_ITS | Encounter Summary ---
Author Organization [facility] Address [address] [place] [address] Care Team Providers Care Letter Of Credit Document Examiner Name Role Phone Yazan Daly MD Primary Care Provider [phone] Reason for Referral * Consultation (Routine) - Closed Specialty Diagnoses / Procedures Referred By Contcarter babin Referred To Contact Gastroenterology Diagnoses Crohn's disease of rectum without complication (CMS/HCC) Irritable bowel syndrome, unspecified type Chet Greer MD [address] [place] [address] Phone: tel: fax: Kelsi Singh MD [address] [facility] [address] [place] [address] Phone: tel: fax: Referral ID Status Reason Start Date Expiration Date V isits Requested Visits Authorized [id number] Closed Specialty Services Required 04/02/2024 10/02/2025 1 1 Encounter Details Date Type Department Care Team (Latest Contact Info) Description 04/02/2024 Community [facility] [address] [place] [address] Chet Greer MD [address] [place] [address] Crohn's disease of rectum without complication (CMS/HCC) [...] Description 2025 11:40 AM EDT Office Visit [facility] [address] [place] [address] Luly Robledo L, DO [address] [place] [address] Scheduled Referrals Name Type Priority Associated Diagnoses [...] documented as of this encounter Care Teams Letter Of Credit Document Examiner Relationship Specialty Start Date End Date Yazan Daly MD [address] [place] [address] PCP - General 08/15/20 documented as of this encounter
--- OUTSIDE RECORDS SUMMARY | 2025-01-02 13:57 | XMS_ITS | Encounter Summary ---
Author Organization Healthcare Address [address] [place] [address] Care Team Providers Care Plant Changer Name Role Phone Yazan Daly MD Primary Care Provider Encounter Details Date Type Department Care Team (Late st Contact Info) Description 11/21/2024 Results Follow-Up [facility] Medicine Specialties [address] [place] [address] Juan Carlos Marks MD [address] [place] [address] Social History Tobacco Use Types [...] Description 2025 11:40 AM EDT Office Visit [facility] Medicine Specialties [address] [place] [address] Luly Robledo L, DO [address] [place] [address] documented as of this encounter [...] documented as of this encounter Care Teams Plant Changer Relationship Specialty Start Date End Date Yazan Daly MD [address] [place] [address] PCP - General 08/15/20 documented as of this encounter
[2025-01-02 14:18] LABS: Hematocrit 42.8 % (42.0-52.0); Hemoglobin 15.0 g/dL (14.1-18.0); Immature Granulocytes % 0.4 %; Mean Corpuscular HGB Conc 35.0 g/dL (31.8-35.4); Mean Corpuscular Hemoglobin 30.5 pg (27.0-31.2); Mean Corpuscular Volume 87.0 fl (80-94); Nucleated Red Blood Cells % 0 %; Platelet Count 214 K/mm3 (142-424); Red Blood Count 4.92 M/mm3 (4.60-6.20); Red Cell Distribution Width-SD 38.5 fL; White Blood Count 5.3 K/mm3 (4.8-10.8)
[2025-01-02 14:25] VITALS: BP 121/70; PULSE 61; RESP 18; O2SAT 96
[2025-01-02] MEDS: VEDOLIZUMAB 300 MG in 0.9 % SODIUM CHLORIDE 250 ML 500 MG IV (14:25)
[2025-01-02 14:39] LABS: Alanine Aminotransferase 45 U/L (12-78); Albumin Level 4.1 g/dl (3.5-5.0); Albumin/Globulin Ratio 1.7 (1.1-1.8); Alkaline Phosphatase 78 U/L (38-126); Anion Gap 13.2 mEq/L (5-15); Aspartate Amino Transferase 35 U/L (17-59); Bilirubin,Total 1.0 mg/dl (0.2-1.3); Blood Urea Nitrogen 18 mg/dl (9-20); Calcium 9.0 mg/dl (8.4-10.2); Carbon Dioxide 23 mmol/L (22.0-30.0); Chloride 108 mmol/L (98-107); Creatinine,Serum 0.70 mg/dl (0.66-1.25); Estimated Glomerular Filt Rate 113 ml/min (>60); GFR (African American) 137 ML/MIN (>60); Globulin 2.4 g/dL (1.3-3.2); Glucose 152 mg/dl (74-100); Potassium 4.2 mmoL/L (3.5-5.1); Sodium 140 mmol/L (136-145); Total Protein,Serum 6.5 g/dl (6.3-8.2)
[2025-01-02 14:44] LABS: C-Reactive Protein 0.7 mg/L (0-4)
[2025-01-02 15:00] VITALS: BP 116/67; PULSE 60; RESP 17
== END 2025-01-02 23:59 | disposition home or self-care (01) ==
LOC: INF 13:55
PROVIDERS: PCP Family Medicine; Visit Provider Emergency Medicine
DX: K50.10 Crohn's disease of large intestine without complications (principal)
CPT/HCPCS: 80053; 85025; 86140; 96365; J3380; J7050

== ENCOUNTER 2025-01-28 10:43 | Outpatient (CLI) | payer MEDICARE, SELFPAY ==
--- OUTSIDE RECORDS SUMMARY | 2023-08-19 12:15 | XMS_ITS ---
Author Organization [facility] Address [address] [facility] [address] [place] [id number] Care Team Providers Care Mobile Lounge Driver Or Operator Name Role Phone Fady Daly Primary Care Provider [phone] Timothy Gan Unavailable [phone] Allergies Allergen (clinical drug ingredient) Drug/Non Drug Allergy documented on EMR Reaction Allergy Type Onset Date Status Substance with penicillin structure and antibacterial mechanism of action (substance) Penicillins Unknown Drug Allergy Active Results Component Value Reference Range Notes Glucose (In-House) Reviewed date:08/24/2023 04:48:25 PM Interpretation:192 Performing Lab: Notes/Report: 192 blood glucose 192 74 - 106 mg/dL Glycohemoglobin A1c (in hous e) Reviewed date:08/24/2023 04:48:25 PM Interpretation:7.4 Performing Lab: Notes/Report: 7.4 glycohemoglobin 7.4% 5 - 6.5 % P-Comprehensive Metabolic Pa jo ann (CMP) Reviewed date:08/24/2023 04:48:25 PM Interpretation:gluc 191 Performing Lab: Notes/Report: Test performed by [facility] , [address], [place] [address] Biju Kay MD, [place] CLIA: [id number] Sodium 139 135-145 mEq/L Potassium 4.2 3.5-5.3 mEq/L Chloride 106 97-108 mEq/L CO2 24 22-32 mEq/L Glucose 191 65-99 mg/dL BUN 16 8-23 mg/dL Creatinine 0.95 0.70-1.30 mg/dL Calcium 9.9 8.6-10.4 mg/dL eGFR by Creatinine 89 >59 mL/min/1.73m2 Protein 6.6 6.0-8.3 g/dL Albumin 4.4 3.5-5.3 g/dL Alkaline Phosphatase 88 40-129 IU/L ALT (SGPT) 32 <5-55 IU/L AST (SGOT) 22 <5-46 IU/L Bilirubin, Total 0.4 <0.2-1.2 mg/dL A/G Ratio 2.0 1.1-2.5 mg/dL P-Lipid Panel Reviewed date:08/24/2023 04:48:25 PM Interpretation:trigs 333, hdl 34 Performing Lab: Notes/Report: Test performed by [facility], [address] , [address], [place] [address] Biju Kay MD, [place] CLIA: [id number] Cholesterol 145 <200 mg/dL Triglycerides 333 <150 mg/dL HDL Cholesterol 34 >39 mg/dL Cholesterol / HDL Ratio 4.26 0.00-4.99 Ratio Non-HDL Cholesterol 111 <130 mg/dL LDL Cholesterol (Calculation) 44 <130 mg/dL LDL Cholesterol Levels* Less than 100 mg/dL Optimal 100 to 129 mg/dL Near Optimal/ Above Optimal 130 to 159 mg/dL Borderline High 160 to 189 mg/dL High 190 mg/dL and above Very High * Categories as recommended by the 2004 ATPIII guidelines LDL/HDL Ratio 1.3 <3.3 Ratio LDL Cholesterol Patient History Test Date: 08/19/2023 LDL Results: 44 Units: mg/dL % Change: - P-PSA Free and Total Reviewed date:08/24/2023 04:48:25 PM Interpretation:Normal Performing Lab: Notes/Report: Test performed by [facility] [address] [place] [address] , [address], [place] [address] Biju Kay MD, [place] CLIA: [id number] PSA 3.39 <4.00 ng/mL Please note this is an ultrasensitive PSA assay with a lower limit of detection of 0.014 ng/mL. This test is performed by the [employer] ECLIA methodology. Values obtained with different assay methods or kits cannot be directly compared. PSA Free 0.55 This test is performed by the [employer] ECLIA methodology. Values obtained with different assay methods or kits cannot be directly compared. fPSA, PCT 16.22 PROBABILITY OF PROSTATE CANCER (For Men with Non-suspicious BETO Results and PSA Between 4 and 10 ng/ml, by Patient Age) % Free PSA PATIENT AGE 50 to 64 Years 65 to 75 Years 0.00 to 10.00% 56% 55% 10.01 to 15.00% 24% 35% 15.01 to 20.00% 17% 23% 20.01 to 25.00% 10% 20% > / = 25.01% 5% 9% P-TSH reflex to FT4 Reviewed date:08/24/2023 04:48:25 PM Interpretation:Normal Performing Lab: Notes/Report: Test performed by [facility] [address] [place] [address] , [address], [place] [address] Biju Kay MD, [place] CLIA: [id number] TSH reflex to FT4 2.84 0.43-5.25 mU/L P-Microalbumin/Creatinine, R andom Urine Sample Reviewed date:08/24/2023 04:48:25 PM Interpretation:Normal Performing Lab: Notes/Report: Test performed by [facility], [address] , [address], [place] [address] Biju Kay MD, [place] CLIA: [id number] Albumin/Creatinine Ratio, Urine 6 0-30 ug/m g Microalbumin, Urine, Random 0.9 Creatinine, Urine 143.9 REASON FOR VISIT 6 months Medications Medication SIG (Take, Route, Frequency, Duration) Notes Start Date End Date Status Asacol HD 800 MG 2 tablets Orally Twi ce a day; Duration: 30 day(s) Active Rosuvastatin Calcium 10 MG 1 tab(s) oral ly once a day 02/24/2022 Active Omeprazole 40 MG 1 cap(s) Orally once daily; Duration: 90 days 06/08/2023 Active Montelukast Sodium 10 MG 1 tablet Orally Once a day; Duration: 30 day(s) 06/24/2023 Active Fluticasone Propionate 50 MCG/ACT 1 spray in each nostril Nasally Once a day; Duration: 30 day(s) 06/24/2023 Active metFORMIN HCl 500 MG 1 tab orally daily Active Losartan Potassium 50 MG 1 tab(s) orally once a day Active Problems Problem Type SNOMED Code ICD Code Onset Dates Problem Status W/U Status Risk Notes Problem Laryngopharyngeal reflux (753345369) Laryngopharyngeal reflux (LPR) (K21.9) Active confirmed Vital Signs Blood pressure systolic 120 mm Hg 08/19/19 24 Blood pressure diastolic 82 mm Hg 024 Heart Rate 70 /min 08/19/2023 Height 70 in 08/19/2023 Weight 211.2 lbs 08/19/2023 BMI 30.30 kg/m2 08/19/2023 Encounters Encounter Location Date Provider Diagnosis [facility] [address] [facility] [address] [place], [place] [id number] 08/19/2023 Timothybinu KhalilMerrill Type 2 diabetes fabiana itus without complication, without long-term current use of insulin E11.9 ; Essential hypertension I10 ; Laryngopharyngeal reflux (LPR) K21.9 ; Elevated PSA R97.20 and Mixed hyperlipidemia E78.2 Assessments Encounter Date Diagnosis (ICD Code) Assessment Notes Treatment Notes Treatment Clinical Notes Section Notes 08/19/2023 Type 2 diabetes mellitus without complication, without long-term current use of insulin (ICD-10 - E11.9) 08/19/2023 Essential hypertension (ICD-10 - I10) 08/19/2023 Laryngopharyngeal reflux (LPR) (ICD-10 - K21.9) 08/19/2023 Elevated PSA (ICD-10 - R97.20) 08/19/2023 Mixed hyperlipidemia (ICD-10 - E78.2) Plan Of Treatment Medication Medication Name Sig Start Date Stop Date Notes Rosuvastatin Calcium 10 MG 1 tab(s) orally once a day 02/03 Omeprazole 40 MG 1 cap(s) Orally once daily; Duration: 90 days 06/08/2023 metFORMIN HCl 500 MG 1 tab orally daily Losartan Potassium 50 MG 1 tab(s) orally once a day Next Appt Details Follow Up: 6 Months, Reason: Provider Name:Timothy winston, 02/20/2025 09:30:00 AM, [address] [facility] [address] [facility], [address], [place], [place], [id number], Provider Name:Timothy winston, 06/19/2025 09:15:00 AM, [address] [facility] [address] [facility], [address], [place], [place], [id number], Progress Notes * MARIANNA BRAND JamesDOB:[birth year] (64 yo M)Acc No.[id number]:08/19/2023 Progress Notes Patient: MARIANNA MADERA Provider: Acacia Gan M.D. :1960 A ge:63 Y S ex:Male Date:08/19/2023 Address:[address] [place] [address] [facility]ANIRA Miller [id number] Pcp:Fady Daly Subjective: * Chief Complaints: * 1 . 6 months. * HPI: C ardiology: 63 year old male presents with c/o Blood Pressure Elevated P t here for 6 mo f/u on hypertension, states he is doing well and does not have any concerns. E ndocrinology: c/o Recent Blood Sugars P t here to f/u on DM 2. * ROS: D ERMATOLOGY: no R jyotsna. n o H danitza. G ASTROENTEROLOGY: no N ausea. n o V omiting. U ROLOGY: no D ifficulty urinating. n o B lood in urine. * Medical History: T ype 2 Diabetes, Dx: 2013, Hypertension, Kidney Stones, Crohn's Disease, Allergic Rhinitis, L5-S1 Pars Defect, Low Back Pain, Lumbar Disc Herniation, Elevated PSA. * Surgical History: B ack, Herniated Disc 11/2009, Dental Implant 04/02/2016, Colonoscopy . * Hospitalization/Major Diagno stic Procedure: K idney Stones , Crohn's Disease , Chest Pain- [facility] 05/03/2013, LT Hip/ Leg Pain- [facility] ER 12/08/2014. * Family History: F ather: alive, hyperlipidemia. M other: alive, hyperlipidemia. P aternal Grand Father: . P aternal Grand Mother: alive. M aternal Grand Father: . M aternal Grand Mother: . 1 brother(s) , 2 sister(s) . 1 son(s) , 1 daughter(s) . . * Social History: C URRENT TOBACCO USE S moking Status: Patient does NOT smoke. C affeine: no. Exercise: no. Home smoke detector use: yes. Marital Status: . New since last visit: none. Past smoking status: no. Recreational drug use: no. Alcohol: socially, Type: , Frequency: ,Years: , Determination:. Sexually active: yes. * Medications: T aking metFORMIN HCl 500 MG Tablet 1 tab orally daily , Taking Losartan Potassium 50 MG Tablet 1 tab(s) orally once a day , Taking Rosuvastatin Calcium 10 MG Tablet 1 tab(s) orally once a day , Taking Asacol HD 800 MG Tablet Delayed Release 2 tablets Orally Twice a day , Taking Montelukast Sodium 10 MG Tablet 1 tablet Orally Once a day , Taking Fluticasone Propionate 50 MCG/ACT Suspension 1 spray in each nostril Nasally Once a day , Taking Omeprazole 40 MG Capsule Delayed Release 1 cap(s) Orally once daily , Medication List reviewed and reconciled with the patient * Allergies: P enicillins. Objective: * Vitals: W t:211.2, Temp:98.0, BP:120/82, HR:70, Nurse:travis, Ht: 70, BMI:30.30. * Examination: G eneral Examination: General Appearance: N AD. H EENT: u nremarkable.?Heart: R SR. L ungs: c lear to auscultation. P eripheral pulses: n ormal (2+) bilaterally. E xtremities: n o leg edema. Assessment: * Assessment: 1. T ype 2 diabetes mellitus without complication, without long-term current use of insulin - E11.9 (Primary) 2 . E ssential hypertension - I10 3 . L aryngopharyngeal reflux (LPR) - K21.9 4 . E levated PSA - R97.20 5 . Mixed hyperlipidemia - E78.2 Plan: * Treatment: Value Reference Range A /G Ratio 2.0 1.1-2.5 - mg/dL * A lbumin 4.4 3.5-5.3 - g/dL * A lkaline Phosphatase 88 40-129 - IU/L * A LT (SGPT) 32 <5-55 - IU/L * A ST (SGOT) 22 <5-46 - IU/L * B ilirubin, Total 0.4 <0.2-1.2 - mg/dL * B UN 16 8-23 - mg/dL * C alcium 9.9 8.6-10.4 - mg/dL * C hloride 106 97-108 - mEq/L * C O2 24 22-32 - mEq/L * C reatinine 0.95 0.70-1.30 - mg/dL * G lucose 191 H 65-99 - mg/dL * P otassium 4.2 3.5-5.3 - mEq/L * S odium 139 135-145 - mEq/L * P rotein 6.6 6.0-8.3 - g/dL * e GFR by Creatinine 89 >59 - mL/min/1.73m2 * Shyanne Natarajan 08/24/2023 4:48: 12 PM >See phone encounter ?LAB: P-TSH reflex to FT4 (Collection Date & Time - 08/19/2023 03:50 PM)? Normal* Value Reference Range T SH reflex to FT4 2.84 0.43-5.25 - mU/L * Shyanne Natarajan 08/24/2023 4:48: 12 PM >See phone encounter ?LAB: P-Microalbumin/Creatinine, Random Urine Sample (Collection Date & Time - 08/19/2023 03:50 PM)?Normal* Value Reference Range A lbumin/Creatinine Ratio, Urine 6 0-30 - ug /mg * C reatinine, Urine 143.9 - mg/dL * M icroalbumin, Urine, Random 0.9 - mg/dL * Shyanne Natarajan 08/24/2023 4:48: 12 PM >See phone encounter ?LAB: Glucose (In-House) (Collection Date & Time - 08/19/2023)?192* Value Reference Range b lood glucose 192 74 - 106 mg/dL * Brigitte Singh 08/19/2023 4:52:44 PM > Shyanne Natarajan 08/24/2023 4:48:12 PM >See phone encounter ?LAB: Glycohemoglobin A1c (in house) (Collection Date & Time - 08/19/2023)? 7.4* Value Reference Range g lycohemoglobin 7.4% 5 - 6.5 % * Brigitte Singh 08/19/2023 4:54:59 PM > Shyanne Natarajan 08/24/2023 4:48:12 PM >See phone encounter 2.?Essential hypertension? Continue Losartan Potassium Tablet, 50 MG, 1 tab(s), orally, once a day.?LAB: P-Comprehensive Metabolic Panel (CMP) (Collection Date & Time - 08/19/2023 03:50 PM)?gluc 191* Value Reference Range A /G Ratio 2.0 1.1-2.5 - mg/dL * A lbumin 4.4 3.5-5.3 - g/dL * A lkaline Phosphatase 88 40-129 - IU/L * A LT (SGPT) 32 <5-55 - IU/L * A ST (SGOT) 22 <5-46 - IU/L * B ilirubin, Total 0.4 <0.2-1.2 - mg/dL * B UN 16 8-23 - mg/dL * C alcium 9.9 8.6-10.4 - mg/dL * C hloride 106 97-108 - mEq/L * C O2 24 22-32 - mEq/L * C reatinine 0.95 0.70-1.30 - mg/dL * G lucose 191 H 65-99 - mg/dL * P otassium 4.2 3.5-5.3 - mEq/L * S odium 139 135-145 - mEq/L * P rotein 6.6 6.0-8.3 - g/dL * e GFR by Creatinine 89 >59 - mL/min/1.73m2 * Shyanne Natarajan 08/24/2023 4:48: 12 PM >See phone encounter 3.?Laryngopharyngeal reflux (LPR)? Refill Omeprazole Capsule Delayed Release, 40 MG, 1 cap(s), Orally, once daily, 90 days, 90, Refills 1.??4.?Elevated PSA?LAB: P-PSA Free and Total (Collection Date & Time - 08/19/2023 03:50 PM)? Normal* Value Reference Range P SA 3.39 <4.00 - ng/mL * P SA Free 0.55 - ng/mL * f PSA, PCT 16.22 - % * Shyanne Natarajan 08/24/2023 4:48: 12 PM >See phone encounter 5.?Mixed hyperlipidemia? Continue Rosuvastatin Calcium Tablet, 10 MG, 1 tab(s), orally, once a day.?LAB: P-Comprehensive Metabolic Panel (CMP) (Collection Date & Time - 08/19/2023 03:50 PM)?gluc 191* Value Reference Range A /G Ratio 2.0 1.1-2.5 - mg/dL * A lbumin 4.4 3.5-5.3 - g/dL * A lkaline Phosphatase 88 40-129 - IU/L * A LT (SGPT) 32 <5-55 - IU/L * A ST (SGOT) 22 <5-46 - IU/L * B ilirubin, Total 0.4 <0.2-1.2 - mg/dL * B UN 16 8-23 - mg/dL * C alcium 9.9 8.6-10.4 - mg/dL * C hloride 106 97-108 - mEq/L * C O2 24 22-32 - mEq/L * C reatinine 0.95 0.70-1.30 - mg/dL * G lucose 191 H 65-99 - mg/dL * P otassium 4.2 3.5-5.3 - mEq/L * S odium 139 135-145 - mEq/L * P rotein 6.6 6.0-8.3 - g/dL * e GFR by Creatinine 89 >59 - mL/min/1.73m2 * Shyanne Natarajan 08/24/2023 4:48: 12 PM >See phone encounter ?LAB: P-Lipid Panel (Collection Date & Time - 08/19/2023 03:50 PM)?trigs 333, hdl 34* Value Reference Range C holesterol / HDL Ratio 4.26 0.00-4.99 - Ratio * C holesterol 145 <200 - mg/dL * H DL Cholesterol 34 L >39 - mg/dL * L DL Cholesterol (Calculation) 44 <130 - mg/d L * L DL/HDL Ratio 1.3 <3.3 - Ratio * N on-HDL Cholesterol 111 <130 - mg/dL * T riglycerides 333 H <150 - mg/dL * Rosa IselaShyanne 08/24/2023 4:48: 12 PM >See phone encounter * Procedure Codes: 8 2950 GLUCOSE TEST, 40610 GLYCATED HEMOGLOBIN TEST, Modifiers: QW , 63622 VENIPUNCT, ROUTINE* * Follow Up: 6 Months * Images: Billing Information: * Visit Code: 08187 Office Visit, Est Pt., Level 4. * Procedure Codes: 05735 GLUCOSE TEST. 70054 GLYCATED HEMOGLOBIN TEST. Modifiers: QW 66067 VENIPUNCT, ROUTINE*. * Electronic signature of Alis Gan MD on 01/28/2025 at 10:57 AM EDT Sign off status: Pending * Provider: Acacia Gan M.D. Date: 0 08/19/2023 Generated for Angelo quan/Adonay/Jimmy on: 1 10:57 AM EDT History and Physical Notes * HPI (History of Present Illness) Category Sub-Category Detail Notes Category Not es Endocrinology Recent Blood Sugars Pt here to f/u on DM 2 Cardiology Blood Pressure Elevated Pt here for 6 mo f/u on hypertension, states he is doing well and does not have any concerns Examination Category Sub-Category Detail Notes Category Not es General Examination HEENT: unremarkable Heart: RSR Lungs: clear to auscultatio n Extremities: no leg edema General Appearance: NAD Peripheral pulses: normal (2+) bilatera lly
--- OUTSIDE RECORDS SUMMARY | 2024-02-20 12:15 | XMS_ITS ---
[facility] Address [address] [facility] [address] [place] [id number] Care Team Providers Care Analyzer Sales Name Role Phone Fady Daly Primary Care Provider [phone] Timothy Gan Unavailable [phone] Allergies Allergen (clinical drug ingredient) Drug/Non Drug Allergy documented on EMR Reaction Allergy Type Onset Date Status Substance with penicillin structure and antibacterial mechanism of action (substance) Penicillins Unknown Drug Allergy Active Results Component Value Reference Range Notes Glucose (In-House) Reviewed date:02/21/2024 09:26:43 AM Interpretation: Performing Lab: Notes/Report: blood glucose 105 74 - 106 mg/dL Glycohemoglobin A1c (in hous e) Reviewed date:02/21/2024 09:26:51 AM Interpretation: Performing Lab: Notes/Report: glycohemoglobin 6.3% 5 - 6.5 % Reason For Referral Reason prefers afternoon ap pt. Diagnosis 1 Internal hemorrhoid (K64.8) [facility] Referring Provider First Name Timothy Referring Provider Last Name Malik Referring Provider Speciality Family Pra ctice Referred Provider SIMI SINCLAIR Referred Provider Specialty General Surg kayla General Notes Chloe Xiong 024 9:37:11 AM > 03/08/2024 at 01:00pm; patient informed Referral Priority Routine REASON FOR VISIT 6 months Medications Medication SIG (Take, Route, Frequency, Duration) Notes Start Date End Date Status metFORMIN HCl 500 MG 1/2 tab orally once daily Active Montelukast Sodium 10 MG 1 tablet Orally Once a day; Duration: 30 day(s) 06/24/2023 Active Losartan Potassium 50 MG 1 tab(s) orally once a day Active Fluticasone Propionate 50 MCG/ACT 1 spray in each nostril Nasally Once a day; Duration: 30 day(s) 06/24/2023 Active Omeprazole 40 MG 1 cap(s) Orally once daily; Duration: 90 days 06/08/2023 Active Rosuvastatin Calcium 10 MG 1 tab(s) oral ly once a day 02/24/2022 Active Asacol HD 800 MG 1 tab(s) Orally once daily; Duration: 90 days Active Vital Signs Blood pressure systolic 124 mm Hg 02/20/20 24 Blood pressure diastolic 80 mm Hg 024 Heart Rate 102 /min 02/20/2024 Height 70 in 02/20/2024 Weight 199 lbs 02/20/2024 BMI 28.55 kg/m2 02/20/2024 Encounters Encounter Location Date Provider Diagnosis [facility] [address] [facility] [address] [facility] [address] [place] [phone] 02/20/2024 Timothy Gan Type 2 diabetes fabiana itus without complication, without long-term current use of insulin E11.9 ; Essential hypertension I10 and Internal hemorrhoid K64.8 Assessments Encounter Date Diagnosis (ICD Code) Assessment Notes Treatment Notes Treatment Clinical Notes Section Notes 02/20/2024 Type 2 diabetes mellitus without complication, without long-term current use of insulin (ICD-10 - E11.9) 02/20/2024 Essential hypertension (ICD-10 - I10) 02/20/2024 Internal hemorrhoid (ICD-10 - K64.8) Plan Of Treatment Medication Medication Name Sig Start Date Stop Date Notes metFORMIN HCl 500 MG 1/2 tab orally once daily Losartan Potassium 50 MG 1 tab(s) orally once a day Referrals Referral Date Details 02/20/2024 02/20/2024, prefers afternoon appt., SIMI SINCLAIR Next Appt Details Follow Up: 6 Months, Reason: Provider Name:Timothy winston, 02/20/2025 09:30:00 AM, [address] [facility], [address], [place], [phone], Provider Name:Timothy winston, 06/19/2025 09:15:00 AM, [address], [address], [place], [phone], Progress Notes * MARIANNA BRANDDOB:[birth year] (64 yo M)Acc No.[id number]:02/20/2024 Progress Notes Patient: MARIANNA MADERA Provider: Acacia Gan M.D. :1960 A ge:64 Y S ex:Male Date:02/20/2024 Address:[facility] [id number] Pcp:Fady Daly Subjective: * Chief Complaints: * 1 . 6 months. * HPI: C ardiology: 64 year old male presents with c/o Blood Pressure Elevated P t here for 6 mo f/u on hypertension, states he is doing well and does not have any concerns. c/o Hyperlipidemia P t is fasting today. * ROS: D ERMATOLOGY: no R jyotsna. n o H danitza. G ASTROENTEROLOGY: no N ausea. n o V omiting. H emorrhoids yes, p resent for a long time, would like to see a surgeon to have it removed. U ROLOGY: no D ifficulty urinating. n o B lood in urine. * Medical History: T ype 2 Diabetes, Dx: 2014, Hypertension, Kidney Stones, Crohn's Disease, Allergic Rhinitis, L5-S1 Pars Defect, Low Back Pain, Lumbar Disc Herniation, Elevated PSA. * Surgical History: B ack, Herniated Disc 11/2009, Dental Implant 04/02/2016, Colonoscopy . * Hospitalization/Major Diagno stic Procedure: K idney Stones , Crohn's Disease , Chest Pain- [facility] ER 05/03/2013, LT Hip/ Leg Pain- [facility] ER 12/08/2014. * Family History: F ather: [...] Sexually active: yes. * Medications: T aking Montelukast Sodium 10 MG Tablet 1 tablet Orally Once a day , Taking Fluticasone Propionate 50 MCG/ACT Suspension 1 spray in each nostril Nasally Once a day , Taking Omeprazole 40 MG Capsule Delayed Release 1 cap(s) Orally once daily , Taking metFORMIN HCl 500 MG Tablet 1 tab orally daily , Taking Losartan Potassium 50 MG Tablet 1 tab(s) orally once a day , Taking Rosuvastatin Calcium 10 MG Tablet 1 tab(s) orally once a day , Taking Asacol HD 800 MG Tablet Delayed Release 1 tab(s) Orally once daily , Medication List reviewed and reconciled with the patient * Allergies: P enicillins. Objective: * Vitals: W t:199, Temp:97.9, BP:124/80, HR:102, Nurse:travis, Ht: 70, BMI:28.55. * Examination: G eneral Examination: General Appearance: N AD. H eart: R SR. L ungs:?clear to auscultation. Assessment: * Assessment: 1. T ype 2 diabetes mellitus without complication, without long-term current use of insulin - E11.9 (Primary) 2 . E ssential hypertension - I10 3 . I nternal hemorrhoid - K64.8 Plan: * Treatment: Value Reference Range b lood glucose 105 74 - 106 mg/dL * Brigitte Singh 02/20/2024 4:42:3 0 PM > , Provider reviewed results while patient in office. ?LAB: Glycohemoglobin A1c (in house) (Collection Date & Time - 02/20/2024)* Value Reference Range g lycohemoglobin 6.3% 5 - 6.5 % * Brigitte Singh 02/20/2024 4:47:1 3 PM > , Provider reviewed results while patient in office. 2.?Essential hypertension? Continue Losartan Potassium Tablet, 50 MG, 1 tab(s), orally, once a day.?? 3.?Internal hemorrhoid? Referral To:SIMI SINCLAIR??General Surgery ?Reason:prefers afternoon appt. * Procedure Codes: 8 2950 GLUCOSE TEST, 32817 GLYCATED HEMOGLOBIN TEST, Modifiers: QW * Follow Up: 6 Months * Images: Billing Information: * Visit Code: 91377 Office Visit, Est Pt., Level 3. * Procedure Codes: 43071 GLUCOSE TEST. 82778 GLYCATED HEMOGLOBIN TEST. Modifiers: QW * Electronic signature of Alis Gan MD on 01/28/2025 at 10:57 AM EDT Sign off status: Pending * Provider: Acacia Gan M.D. Date: 04/21/2023 Generated for Angelo quan/Adonay/Manjusmitting on: 10:57 AM EDT History and Physical Notes * HPI (History of Present Illness) Category Sub-Category Detail Notes Category Not es Cardiology Blood Pressure Elevated Pt here for 6 mo f/u on hypertension, states he is doing well and does not have any concerns Hyperlipidemia Pt is fasting today Examination Category Sub-Category Detail Notes Category Not es General Examination Heart: RSR Lungs: clear to auscultatio n General Appearance: NAD Consultation Request Notes Referral Date Referring Provider Referred Provider Not es 02/20/2024 Timothy Gan CHARLES prefers a fternoon appt.
--- OUTSIDE RECORDS SUMMARY | 2024-06-21 09:30 | XMS_ITS ---
Author Organization [facility] Address [address] [facility] [address] [place] [id number] Care Team Providers Care Portable Sawyer Name Role Phone Fady Daly Primary Care Provider Allergies Allergen (clinical drug ingredient) Drug/Non Drug Allergy documented on EMR Reaction Allergy Type Onset Date Status Substance with penicillin structure and antibacterial mechanism of action (substance) Penicillins Unknown Drug Allergy Active REASON FOR VISIT BP running high Medications Medication SIG (Take, Route, Frequency, Duration) Notes Start Date End Date Status Rosuvastatin Calcium 10 MG 1 tab(s) oral ly once a day 02/24/2022 Active Losartan Potassium 50 MG 1 tab(s) orally once a day Active metFORMIN HCl 500 MG 1/2 tab orally once daily Active Asacol HD 800 MG 1 tab(s) Orally once daily; Duration: 90 days Active Problems Problem Type SNOMED Code ICD Code Onset Dates Problem Status W/U Status Risk Notes Problem Stress (91603863) Stress (F43.9) Active confirmed Vital Signs Blood pressure systolic 142 mm Hg 06/22/19 25 Blood pressure diastolic 94 mm Hg 025 Heart Rate 77 /min 06/21/2024 Height 70 in 06/21/2024 Weight 205.6 lbs 06/21/2024 BMI 29.50 kg/m2 06/21/2024 Encounters Encounter Location Date Provider Diagnosis Dary [address] [facility] [address] [place] [id number] 06/21/2024 Fady Daly Chest pain R07.9 ; Crohns disease of small intestine without complication K50.00 ; Stress F43.9 and Essential hypertension I10 Assessments Encounter Date Diagnosis (ICD Code) Assessment Notes Treatment Notes Treatment Clinical Notes Section Notes 06/21/2024 Chest pain (ICD-10 - R07.9) Dr. Morrsisey will see him today 06/21/2024 Crohns disease of small intestine without complication (ICD-10 - K50.00) 06/21/2024 Stress (ICD-10 - F43.9) 06/21/2024 Essential hypertension (ICD-10 - I10) Plan Of Treatment Treatment Notes Assessment Notes Chest pain Dr. Morrissey will see him today Next Appt Details Follow Up: 3 Weeks, Reason: Provider Name:Timothy winston, 02/20/2025 09:30:00 AM, [address], [address], [place], [place], [id number], Provider Name:Timothy winston, 06/19/2025 09:15:00 AM, [address], [address], [place], [place], [phone], Progress Notes * MARIANNA BRAND JamesDOB:[birth year] (64 yo M)Acc No.[id number]:06/21/2024 Progress Notes Patient: MARIANNA MADERA Provider: Fady Daly M.D. :1960 A ge:64 Y S ex:Male Date:06/21/2024 Address:[facility] [address] [id number] Subjective: * Chief Complaints: * 1 . BP running high. * HPI: C ardiology: The pt is here today with c/o intermittent chest pressure/tightness, shortness of breath and elevated BP. Pt states his has had pain in his left arm off and on for about 4 days. Stress is a factor. Upset about of Clara Ornelas yesterday. Concerned about looming intermediate. Stress at work. Recent colonoscopy with polyps. 64 year old male presents with c/o Chest Pain. c/o Short of Breath. c/o Palpitations. Denies : Dizziness. D enies : Headaches. * ROS: D ERMATOLOGY: no R jyotsna. n o H danitza. G ASTROENTEROLOGY: no N ausea. n o V omiting. n o D iarrhea.? U ROLOGY: no D ifficulty urinating. n [...] Stones , Crohn's Disease , Chest Pain- [facility] ER 05/03/2013, LT Hip/ Leg Pain- [facility] ER 12/08/2014. * Family History: F ather: [...] Sexually active: yes. * Medications: T aking Rosuvastatin Calcium 10 MG Tablet 1 tab(s) orally once a day , Taking metFORMIN HCl 500 MG Tablet 1/2 tab orally once daily , Taking Losartan Potassium 50 MG Tablet 1 tab(s) orally once a day , Taking Asacol HD 800 MG Tablet Delayed Release 1 tab(s) Orally once daily , Discontinued Montelukast Sodium 10 MG Tablet 1 tablet Orally Once a day , Discontinued Fluticasone Propionate 50 MCG/ACT Suspension 1 spray in each nostril Nasally Once a day , Discontinued Omeprazole 40 MG Capsule Delayed Release 1 cap(s) Orally once daily , Medication List reviewed and reconciled with the patient * Allergies: P enicillins. Objective: * Vitals: W t:205.6, Temp:98.2, BP:142/94, HR:77, O2 Sat:98% on RA, Nurse:BENOIT, Ht: 70, BMI:29.50. * Examination: G eneral Examination: General Appearance: N AD. H EENT: u nremarkable.?Oral cavity: n o lesions, mucosa moist and WNL, no erythema. N jess: s upple, no lymphadenopathy. C hest: n ormal shape and expansion. H eart: R SR. L ungs: c lear to auscultation. A bdomen: soft and nontender, no organomegaly or masses. N eurologic Exam: I ntact, gait normal. S kin: n ormal, no rash. P eripheral pulses: n ormal (2+) bilaterally. E xtremities: n o leg edema. Assessment: * Assessment: 1. C hest pain - R07.9 (Primary) 2 . C rohns disease of small intestine without complication - K50.00 3 . S tress - F43.9 4 . E ssential hypertension - I10 Plan: * Treatment: * Procedure Codes: 9 4760 PULSE [place]X, 3077F SYST BP = 140 MM HG6 IT, 3080F DIAST BP = 90 MM HG * Follow Up: 3 Weeks * Images: Billing Information: * Visit Code: 24516 Office Visit, Est Pt., Level 4. * Procedure Codes: 79554 PULSE OX. 3077F SYST BP = 140 MM HG6 IT. 3080F DIAST BP = 90 MM HG. * Electronic signature of Fady Daly MD on 01/28/2025 at 10:58 AM EDT Sign off status: Pending * Provider: Fady Daly M.D. Date: 0 06/21/2024 Generated for Dionicioi avelina/Adonay/eTericksonsmitting on: 1 10:58 AM EDT History and Physical Notes * HPI (History of Present Illness) Category Sub-Category Detail Notes Category Not es Cardiology Short of Breath Chest Pain Palpitations Dizziness Headaches Examination Category Sub-Category Detail Notes Category Not es General Examination HEENT: unremarkable Heart: RSR Lungs: clear to auscultatio n Abdomen: soft and nontender, no organomegaly or masses Extremities: no leg edema General Appearance: NAD Skin: normal, no rash Neurologic Exam: Intact, gait normal Neck: supple, no lymphaden opathy Oral cavity: no lesions, mucosa m oist and WNL, no erythema Peripheral pulses: normal (2+) bilatera lly Chest: normal shape and exp ansion
--- OUTSIDE RECORDS SUMMARY | 2024-07-16 07:45 | XMS_ITS ---
Author Organization [facility] Address [address] [facility] [address] [place] [id number] Care Team Providers Care Web Services Manager Name Role Phone Fady Daly Primary Care Provider Allergies Allergen (clinical drug ingredient) Drug/Non Drug Allergy documented on EMR Reaction Allergy Type Onset Date Status Substance with penicillin structure and antibacterial mechanism of action (substance) Penicillins Unknown Drug Allergy Active REASON FOR VISIT 3 week f/u Medications Medication SIG (Take, Route, Frequency, Duration) Notes Start Date End Date Status Asacol HD 800 MG 1 tab(s) Orally once daily; Duration: 90 days Active Losartan Potassium 50 MG 1 tab(s) orally once a day Active metFORMIN HCl 500 MG 1/2 tab orally once daily Active Metoprolol Succinate 25 MG 1 capsule Ora lly Once a day; Duration: 30 day(s) Active Rosuvastatin Calcium 10 MG 1 tab(s) oral ly once a day 02/24/2022 Active Vital Signs Blood pressure systolic 130 mm Hg 07/17/19 25 Blood pressure diastolic 80 mm Hg 025 Heart Rate 66 /min 07/16/2024 Height 70 in 07/16/2024 Weight 207.2 lbs 07/16/2024 BMI 29.73 kg/m2 07/16/2024 Encounters Encounter Location Date Provider Diagnosis [facility] [address] [facility] [address] [place] [id number] 07/16/2024 Fady Daly Essential hypertensi on I10 ; Type 2 diabetes mellitus without complication, without long-term current use of insulin E11.9 ; Mixed hyperlipidemia E78.2 and BMI 29.0-29.9,adult Z68.29 Assessments Encounter Date Diagnosis (ICD Code) Assessment Notes Treatment Notes Treatment Clinical Notes Section Notes 07/16/2024 Essential hypertension (ICD-10 - I10) continue current therapy 07/16/2024 Type 2 diabetes mellitus without complication, without long-term current use of insulin (ICD-10 - E11.9) 07/16/2024 Mixed hyperlipidemia (ICD-10 - E78.2) 07/16/2024 BMI 29.0-29.9,adult (ICD-10 - Z68.29) Plan Of Treatment Treatment Notes Assessment Notes Essential hypertension continue current therapy Next Appt Details Follow Up: 3 Months, Reason: Provider Name:Timothy T Fox winston, 02/20/2025 09:30:00 AM, [address] [facility], [address], [email or web address] [id number], Provider Name:Timothy winston, 06/19/2025 09:15:00 AM, [address] [facility], [email or web address] [id number], Progress Notes * MARIANNA BRAND JamesDOB:[birth year] (64 yo M)Acc No.[id number]:07/16/2024 Patient: MARIANNA MADERA Provider: Fady Daly M.D. :1960 A ge:64 Y S ex:Male Date:07/16/2024 Address:[facility] [address] [id number] Subjective: * Chief Complaints: * 1 . 3 week f/u. * HPI: C ardiology: The patient is here for a follow up on high blood pressure. Pt states he saw Dr Morrissey on and his BP is doing better with the addition of Metoprolol 25 mg daily. See the test reports which were very reassuring. The patient states he feels tremendously better. Denies : Chest Pain. D enies : Short of Breath. D enies : Dizziness. D enies : Palpitations. * ROS: D ERMATOLOGY: no R jyotsna. [...] Stones , Crohn's Disease , Chest Pain- [facility] ER 05/03/2013, LT Hip/ Leg Pain- [facility] ER 12/08/2014. * Family History: F [...] Sexually active: yes. * Medications: T aking Metoprolol Succinate 25 MG Capsule ER 24 Hour Sprinkle 1 capsule Orally Once a day , Taking Rosuvastatin Calcium 10 [...] Allergies: P enicillins. Objective: * Vitals: W t:207.2, Temp:98.1, BP:130/80, HR:66, O2 Sat:97% on RA, Nurse:BENOIT, Ht: 70, BMI:29.73. * Examination: G eneral Examination: General Appearance: [...] no rash. P eripheral pulses: n ormal . E xtremities: n o leg edema. Assessment: * Assessment: 1. E ssential hypertension - I10 (Primary) 2 . T ype 2 diabetes mellitus without complication, without long-term current use of insulin - E11.9 3 . M ixed hyperlipidemia - E78.2 4 . B NC 29.0-29.9,adult - Z68.29 Plan: * Treatment: * Procedure Codes: 3 075F SYST BP GE 130 - 139MM HG, 3079F DIAST BP 80-89 MM HG * Follow Up: 3 Months * Images: Billing Information: * Visit Code: 30714 Office Visit, Est Pt., Level 3. * Procedure Codes: 3075F SYST BP GE 130 - 139MM HG. 3079F DIAST BP 80-89 MM HG. * Electronic signature of Fady Daly MD on 01/28/2025 at 10:58 AM EDT Sign off status: Pending * Provider: Fady Daly M.D. Date: 0 07/16/2024 Generated for Dionicioi avelina/Adonay/eTransmitting on: 1 10:58 AM EDT History and Physical Notes * HPI (History of Present Illness) Category Sub-Category Detail Notes Category Not es Cardiology Short of Breath Chest Pain Palpitations Dizziness Examination Category Sub-Category Detail Notes Category Not es General Examination HEENT: unremarkable Heart: RSR Lungs: clear to auscultatio n Abdomen: soft and nontender, no organomegaly or masses Extremities: no leg edema General Appearance: NAD Skin: normal, no rash Neurologic Exam: Intact, gait normal Neck: supple, no lymphaden opathy Oral cavity: no lesions, mucosa m oist and WNL, no erythema Peripheral pulses: normal Chest: normal shape and exp ansion
--- OUTSIDE RECORDS SUMMARY | 2024-08-20 12:15 | XMS_ITS ---
Author Organization [facility] Address [address] [facility] [address] [place] [phone] Care Team Providers Care Process Design Chemical Engineer Name Role Phone Fady Daly Primary Care Provider Timothy Gan Unavailable [phone] Allergies Allergen (clinical drug ingredient) Drug/Non Drug Allergy documented on EMR Reaction Allergy Type Onset Date Status Substance with penicillin structure and antibacterial mechanism of action (substance) Penicillins Unknown Drug Allergy Active Results Component Value Reference Range Notes Glucose (In-House) Reviewed date:08/22/2024 12:19:19 PM Interpretation:144 Performing Lab: Notes/Report: 144 blood glucose 144 74 - 106 mg/dL CBC Venipuncture (in house) Reviewed date:08/22/2024 12:19:19 PM Interpretation: Normal Performing Lab: Notes/Report: Normal wbc 5.8 3.5 - 10 lymph 32.5% 15 - 50 mid 7.4% 2 - 15 gran 60.1% 35 - 80 rbc 5.10 3.5 - 5.5 hgb 14.8 11.5 - 16.5 hct 44.1 35 - 55 mcv 86.5 75 - 100 mch 29.1 25 - 35 mchc 33.6 31 - 38 platlet 225 100 - 400 Glycohemoglobin A1c (in hous e) Reviewed date:08/22/2024 12:19:19 PM Interpretation:7 Performing Lab: Notes/Report: 7 glycohemoglobin 7.0% 5 - 6.5 % P-Comprehensive Metabolic Pa jo ann (CMP) Reviewed date:08/22/2024 12:19:19 PM Interpretation:co2- 21, gluc 129 Performing Lab: Notes/Report: Test performed by [facility] [address] [place] [address] , [address], [place] [address] Biju Kay MD, Sales And Marketing Associate CLIA: [id number] Sodium 140 135-145 mmol/L Potassium 4.6 3.5-5.3 mmol/L Chloride 106 97-108 mmol/L CO2 21 22-32 mmol/L Glucose 129 65-99 mg/dL BUN 13 8-23 mg/dL Creatinine 0.97 0.70-1.30 mg/dL Calcium 9.7 8.6-10.4 mg/dL eGFR by Creatinine 86 >59 mL/min/1.73m2 Protein 6.8 6.0-8.3 g/dL Albumin 4.3 3.5-5.3 g/dL Alkaline Phosphatase 86 40-129 IU/L ALT (SGPT) 35 <5-55 IU/L AST (SGOT) 29 <5-46 IU/L Bilirubin, Total 0.7 <0.2-1.2 mg/dL A/G Ratio 1.7 1.1-2.5 P-Lipid Panel Reviewed date:08/22/2024 12:19:19 PM Interpretation:trigs 271, hdl 26 Performing Lab: Notes/Report: Test performed by [facility] [address] [place] [address] [address], [place] [address] Biju Kay MD, Sales And Marketing Associate CLIA: [id number] Cholesterol 128 <200 mg/dL Triglycerides 271 <150 mg/dL HDL Cholesterol 36 >39 mg/dL Cholesterol / HDL Ratio 3.56 0.00-4.99 Ratio Non-HDL Cholesterol 92 <130 mg/dL LDL Cholesterol (Calculation) 38 <130 mg/dL LDL Cholesterol Levels* Less than 100 mg/dL Optimal 100 to 129 mg/dL Near Optimal/ Above Optimal 130 to 159 mg/dL Borderline High 160 to 189 mg/dL High 190 mg/dL and above Very High * Categories as recommended by the 2004 ATPIII guidelines LDL/HDL Ratio 1.1 <3.3 Ratio LDL Cholesterol Patient History Test Date: 08/19/2023 LDL Results: 44 Units: mg/dL % Change: - Test Date: 08/20/2024 LDL Results: 38 Units: mg/dL % Change: -13% P-PSA Free and Total Reviewed date:08/22/2024 12:19:19 PM Interpretation:5.03 Performing Lab: Notes/Report: Test performed by [facility], [address] , [place] [address] Biju Kay MD, Sales And Marketing Associate CLIA: [id number] PSA 5.03 <4.00 ng/mL Please note this is an ultrasensitive PSA assay with a lower limit of detection of 0.014 ng/mL. This test is performed by the True ECLIA methodology. Values obtained with different assay methods or kits cannot be directly compared. PSA Free 0.73 This test is performed by the True ECLIA methodology. Values obtained with different assay methods or kits cannot be directly compared. fPSA, PCT 14.51 PROBABILITY OF PROSTATE CANCER (For Men with [...] 5% 9% P-TSH reflex to FT4 Reviewed date:08/22/2024 12:19:19 PM Interpretation: Normal Performing Lab: Notes/Report: Test performed by [facility] [address] [place] [address] , [address], [place] [address] Biju Kay MD, Sales And Marketing Associate CLIA: [id number] TSH reflex to FT4 2.72 0.43-5.25 mU/L P-Microalbumin/Creatinine, R andom Urine Sample Reviewed date:08/22/2024 12:19:19 PM Interpretation: Normal Performing Lab: Notes/Report: Test performed by [facility] [address] [place] [address] , [address], [place] [address] Biju Kay MD, Sales And Marketing Associate CLIA: [id number] Albumin/Creatinine Ratio, Urine <6.10 0-30 ug/m g Microalbumin, Urine, Random <0.3 Creatinine, Urine 49.1 REASON FOR VISIT 6 month check up Medications Medication SIG (Take, Route, Frequency, Duration) Notes Start Date End Date Status metFORMIN HCl 500 MG 1/2 tab orally once daily Active Metoprolol Succinate 25 MG 1 capsule Ora lly Once a day Active Rosuvastatin Calcium 10 MG 1 tab(s) oral ly once a day 02/24/2022 Active Losartan Potassium 50 MG 1 tab(s) orally once a day Active Asacol HD 800 MG 1 tab(s) Orally once daily; Duration: 90 days Active Problems Problem Type SNOMED Code ICD Code Onset Dates Problem Status W/U Status Risk Notes Problem Body mass index 30+ - obesity (019019820) BMI 30.0-30.9,a dult (Z68.30) Active confirmed Vital Signs Blood pressure systolic 120 mm Hg 08/21/19 25 Blood pressure diastolic 80 mm Hg 025 Heart Rate 55 /min 08/20/2024 Height 70 in 08/20/2024 Weight 209.8 lbs 08/20/2024 BMI 30.1 kg/m2 08/20/2024 Encounters Encounter Location Date Provider Diagnosis [facility] [address] [facility] [address] [facility] [address] [place] [phone] 08/20/2024 [place]binu [place] Type 2 diabetes fabiana itus without complication, without long-term current use of insulin E11.9 ; Essential hypertension I10 ; Mixed hyperlipidemia E78.2 ; Elevated PSA R97.20 ; Prostate cancer screening Z12.5 and BMI 30.0-30.9,adult Z68.30 Assessments Encounter Date Diagnosis (ICD Code) Assessment Notes Treatment Notes Treatment Clinical Notes Section Notes 08/20/2024 Type 2 diabetes mellitus without complication, without long-term current use of insulin (ICD-10 - E11.9) 08/20/2024 Essential hypertension (ICD-10 - I10) 08/20/2024 Mixed hyperlipidemia (ICD-10 - E78.2) 08/20/2024 Elevated PSA (ICD-10 - R97.20) 08/20/2024 Prostate cancer screening (ICD-10 - Z12.5) 08/20/2024 BMI 30.0-30.9,adult (ICD-10 - Z68.30) Plan Of Treatment Medication Medication Name Sig Start Date Stop Date Notes metFORMIN HCl 500 MG 1/2 tab orally once daily Metoprolol Succinate 25 MG 1 capsule Orally Once a day Rosuvastatin Calcium 10 MG 1 tab(s) orally once a day 02/03 Losartan Potassium 50 MG 1 tab(s) orally once a day Next Appt Details Follow Up: 6 Months, Reason: Provider Name:Timothy winston, 02/20/2025 09:30:00 AM, [address] [facility] [address] [facility] [address], [place], [phone], Provider Name:Timothy winston, 06/19/2025 09:15:00 AM, [address] [facility] [address] [facility] [address], [place], [phone], Progress Notes * MARIANNA BRANDDOB:[birth year] (64 yo M)Acc No.[id number]:08/20/2024 Progress Notes Patient: Jigna JAYLYN MARIANNA Ramirez Provider: Acacia Gan M.D. :1960 A ge:64 Y S ex:Male Date:08/20/2024 Address:[place] [id number] Pcp:Fady Daly Subjective: * Chief Complaints: * 1 . 6 month check up. * HPI: H PI: 64 year old male presents with c/o Patient is here today for?Pt is here for a 6 month check up. Pt sts he is doing well and has no concerns . * ROS: D ERMATOLOGY: no R jyotsna. [...] Stones , Crohn's Disease , Chest Pain- [facility] ER 05/03/2013, LT Hip/ Leg Pain- [facility] ER 12/08/2014. * Family History: F [...] Allergies: P enicillins. Objective: * Vitals: W t: 209.8, Temp: 97.8, BP: 120/80, HR: 55, Nurse: [facility], Ht: 70, BMI:30.1. * Examination: G eneral Examination: General Appearance: N AD. H eart: R SR. L ungs:?clear to auscultation. P eripheral pulses: n ormal (2+) bilaterally. E xtremities:?no leg edema. Assessment: * Assessment: 1. T ype 2 diabetes mellitus without complication, without long-term current use of insulin - E11.9 (Primary) 2 . E ssential hypertension - I10 3 . M ixed hyperlipidemia - E78.2 4 . E levated PSA - R97.20 5 . P rostate cancer screening - Z12.5 6 . B MA 30.0-30.9,adult - Z68.30 Plan: * Treatment: Value Reference Range A /G Ratio 1.7 1.1-2.5 - * A lbumin 4.3 3.5-5.3 - g/dL * A lkaline Phosphatase 86 40-129 - IU/L * A LT (SGPT) 35 <5-55 - IU/L * A ST (SGOT) 29 <5-46 - IU/L * B ilirubin, Total 0.7 <0.2-1.2 - mg/dL * B UN 13 8-23 - mg/dL * C alcium 9.7 8.6-10.4 - mg/dL * C hloride 106 97-108 - mmol/L * C O2 21 L 22-32 - mmol/L * C reatinine 0.97 0.70-1.30 - mg/dL * G lucose 129 H 65-99 - mg/dL * P otassium 4.6 3.5-5.3 - mmol/L * S odium 140 135-145 - mmol/L * P rotein 6.8 6.0-8.3 - g/dL * e GFR by Creatinine 86 >59 - mL/min/1.73m2 * Shyanne Natarajan 08/22/2024 12:1 9:14 PM > See phone encounter ?LAB: P-TSH reflex to FT4 (Collection Date & Time - 08/20/2024 03:35 PM)? Normal* Value Reference Range T SH reflex to FT4 2.72 0.43-5.25 - mU/L * Shyanne Natarajan 08/22/2024 12:1 9:14 PM > See phone encounter ?LAB: P-Microalbumin/Creatinine, Random Urine Sample (Collection Date & Time - 08/20/2024 03:35 PM)?Normal* Value Reference Range A lbumin/Creatinine Ratio, Urine <6.10 0-30 - ug /mg * C reatinine, Urine 49.1 - mg/dL * M icroalbumin, Urine, Random <0.3 - mg/dL * Shyanne Natarajan 08/22/2024 12:1 9:14 PM > See phone encounter ?LAB: Glucose (In-House) (Collection Date & Time - 08/20/2024)?144* Value Reference Range b lood glucose 144 74 - 106 mg/dL * Denisha Soto 08/20/2024 04 :45:03 PM > Shyanne Natarajan 08/22/2024 12:19:14 PM > See phone encounter ?LAB: Glycohemoglobin A1c (in house) (Collection Date & Time - 08/20/2024)?7 * Value Reference Range g lycohemoglobin 7.0% 5 - 6.5 % * Denisha Soto 08/20/2024 04 :45:26 PM > Shyanne Natarajan 08/22/2024 12:19:14 PM > See phone encounter 2.?Essential hypertension? Continue Metoprolol Succinate Capsule ER 24 Hour Sprinkle, 25 MG, 1 capsule, Orally, Once a day; Continue Losartan Potassium Tablet, 50 MG, 1 tab(s), orally, once a day.?LAB: P-Comprehensive Metabolic Panel (CMP) (Collection Date & Time - 08/20/2024 03:35 PM)?co2- 21, gluc 129* Value Reference Range A /G Ratio 1.7 1.1-2.5 - * A lbumin 4.3 3.5-5.3 - g/dL * A lkaline Phosphatase 86 40-129 - IU/L * A LT (SGPT) 35 <5-55 - IU/L * A ST (SGOT) 29 <5-46 - IU/L * B ilirubin, Total 0.7 <0.2-1.2 - mg/dL * B UN 13 8-23 - mg/dL * C alcium 9.7 8.6-10.4 - mg/dL * C hloride 106 97-108 - mmol/L * C O2 21 L 22-32 - mmol/L * C reatinine 0.97 0.70-1.30 - mg/dL * G lucose 129 H 65-99 - mg/dL * P otassium 4.6 3.5-5.3 - mmol/L * S odium 140 135-145 - mmol/L * P rotein 6.8 6.0-8.3 - g/dL * e GFR by Creatinine 86 >59 - mL/min/1.73m2 * Shyanne Natarajan 08/22/2024 12:1 9:14 PM > See phone encounter ?LAB: CBC Venipuncture (in house) (Collection Date & Time - 08/20/2024)? Normal* Value Reference Range w bc 5.8 3.5 - 10 * l ymph 32.5% 15 - 50 * m id 7.4% 2 - 15 * g ran 60.1% 35 - 80 * r bc 5.10 3.5 - 5.5 * h gb 14.8 11.5 - 16.5 * h ct 44.1 35 - 55 * m cv 86.5 75 - 100 * m ch 29.1 25 - 35 * m chc 33.6 31 - 38 * p latlet 225 100 - 400 * Denisha Soto 08/20/2024 04 :47:17 PM > Shyanne Natarajan 08/22/2024 12:19:14 PM > See phone encounter 3.?Mixed hyperlipidemia? Continue Rosuvastatin Calcium Tablet, 10 MG, 1 tab(s), orally, once a day.?LAB: P-Comprehensive Metabolic Panel (CMP) (Collection Date & Time - 08/20/2024 03:35 PM)?co2- 21, gluc 129* Value Reference Range A /G Ratio 1.7 1.1-2.5 - * A lbumin 4.3 3.5-5.3 - g/dL * A lkaline Phosphatase 86 40-129 - IU/L * A LT (SGPT) 35 <5-55 - IU/L * A ST (SGOT) 29 <5-46 - IU/L * B ilirubin, Total 0.7 <0.2-1.2 - mg/dL * B UN 13 8-23 - mg/dL * C alcium 9.7 8.6-10.4 - mg/dL * C hloride 106 97-108 - mmol/L * C O2 21 L 22-32 - mmol/L * C reatinine 0.97 0.70-1.30 - mg/dL * G lucose 129 H 65-99 - mg/dL * P otassium 4.6 3.5-5.3 - mmol/L * S odium 140 135-145 - mmol/L * P rotein 6.8 6.0-8.3 - g/dL * e GFR by Creatinine 86 >59 - mL/min/1.73m2 * Shyanne Natarajan 08/22/2024 12:1 9:14 PM > See phone encounter ?LAB: P-Lipid Panel (Collection Date & Time - 08/20/2024 03:35 PM)?trigs 271, hdl 26* Value Reference Range C holesterol / HDL Ratio 3.56 0.00-4.99 - Ratio * C holesterol 128 <200 - mg/dL * H DL Cholesterol 36 L >39 - mg/dL * L DL Cholesterol (Calculation) 38 <130 - mg/d L * L DL/HDL Ratio 1.1 <3.3 - Ratio * N on-HDL Cholesterol 92 <130 - mg/dL * T riglycerides 271 H <150 - mg/dL * Shyanne Natarajan 08/22/2024 12:1 9:14 PM > See phone encounter 4.?Elevated PSA?LAB: P-PSA Free and Total (Collection Date & Time - 08/20/2024 03:35 PM)? 5.03* Value Reference Range P SA 5.03 H <4.00 - ng/mL * P SA Free 0.73 - ng/mL * f PSA, PCT 14.51 - % * Shyanne Natarajan 08/22/2024 12:1 9:14 PM > See phone encounter 5.?Prostate cancer screening?LAB: P-PSA Free and Total (Collection Date & Time - 08/20/2024 03:35 PM)? 5.03* Value Reference Range P SA 5.03 H <4.00 - ng/mL * P SA Free 0.73 - ng/mL * f PSA, PCT 14.51 - % * Shyanne Natarajan 08/22/2024 12:1 9:14 PM > See phone encounter * Procedure Codes: 8 5025 CBC WITH AUTO DIFF, 31173 GLUCOSE TEST, 11350 GLYCATED HEMOGLOBIN TEST, Modifiers: QW , 3051F HG A1C>EQUAL 7.0%<8.0%, 3074F SYST BP LT 130 MM HG, 3079F DIAST BP 80-89 MM HG * Follow Up: 6 Months * Images: Billing Information: * Visit Code: 73086 Office Visit, Est Pt., Level 4. * Procedure Codes: 15088 CBC WITH AUTO DIFF. 48878 GLUCOSE TEST. 64946 GLYCATED HEMOGLOBIN TEST. Modifiers: QW 3051F HG A1C>EQUAL 7.0%<8.0%. 3074F SYST BP LT 130 MM HG. 3079F DIAST BP 80-89 MM HG. * Electronic signature of Alis Gan MD on 01/28/2025 at 10:58 AM EDT Sign off status: Pending * Provider: Acacia Gan M.D. Date: 0 08/20/2024 Generated for Angelo ng/Adonay/eTransmitting on: 1 10:58 AM EDT History and Physical Notes * HPI (History of Present Illness) Category Sub-Category Detail Notes Category Not es HPI Patient is here today for Pt is here for a 6 month check up. Pt sts he is doing well and has no concerns Examination Category Sub-Category Detail Notes Category Not es General Examination Heart: RSR Lungs: clear to auscultatio n Extremities: no leg edema General Appearance: NAD Peripheral pulses: normal (2+) bilatera lly
--- OUTSIDE RECORDS SUMMARY | 2024-09-21 12:00 | XMS_ITS ---
Author Organization [facility] Address [address] [facility] [address] [facility] [address] [place] [id number] Care Team Providers Care Pharmacy Technician Name Role Phone Fady Daly Primary Care Provider Timothy Gan Unavailable [phone] REASON FOR VISIT BW Medications Medication SIG (Take, Route, Frequency, Duration) Notes Start Date End Date Status Asacol HD 800 MG 1 tab(s) Orally once daily; Duration: 90 days Active metFORMIN HCl 500 MG 1/2 tab orally once daily Active Losartan Potassium 50 MG 1 tab(s) orally once a day Active Rosuvastatin Calcium 10 MG 1 tab(s) oral ly once a day 02/24/2022 Active Metoprolol Succinate 25 MG 1 capsule Ora lly Once a day Active Problems Problem Type SNOMED Code ICD Code Onset Dates Problem Status W/U Status Risk Notes Problem Crohn's disease (17809714) Crohn's disease, unspecified, without complications (K50.90) Active confirmed Encounters Encounter Location Date Provider Diagnosis [place] [address] [facility] [address] [place] [id number] 09/21/2024 Timothy Gan Crohn's disease, unspecified, without complications K50.90 Assessments Encounter Date Diagnosis (ICD Code) Assessment Notes Treatment Notes Treatment Clinical Notes Section Notes 09/21/2024 Crohn's disease, unspecified, without complications (ICD-10 - K50.90) Plan Of Treatment Pending Test Test Name Order Date P-CBC with Diff plus Absolute Counts P-Comprehensive Metabolic Panel (CMP) P-Iron Binding Cap 09/21/2024 Next Appt Details Provider Name:Timothy Braxton catrachito, 02/20/2025 09:30:00 AM, [address], [place], [id number], Provider Name:Timothy Braxton catrachito, 06/19/2025 09:15:00 AM, [address] [facility], [address], [place], [phone], Progress Notes * MARIANNA BRANDDOB:[birth year] (64 yo M)Acc No.[id number]:09/21/2024 Patient: MARIANNA MADERA Provider: Acacia Gan M.D. :1960 A ge:64 Y S ex:Male Date:09/21/2024 Address:[address] [place] [address] [id number] Pcp:Fady Daly Subjective: * Chief Complaints: * 1 . BW. * Medical History: * Medications: T aking Asacol HD 800 MG Tablet Delayed Release 1 tab(s) Orally once daily , Taking metFORMIN HCl 500 MG Tablet 1/2 tab orally once daily , Taking Rosuvastatin Calcium 10 MG Tablet 1 tab(s) orally once a day , Taking Metoprolol Succinate 25 MG Capsule ER 24 Hour Sprinkle 1 capsule Orally Once a day , Taking Losartan Potassium 50 MG Tablet 1 tab(s) orally once a day , Medication List reviewed and reconciled with the patient Objective: * Vitals: Assessment: * Assessment: 1. C rohn's disease, unspecified, without complications - K50.90 Plan: * Treatment: * Images: Billing Information: * Visit Code: * Procedure Codes: * Electronic signature of Alis Gan MD on 01/28/2025 at 10:57 AM EDT Sign off status: Pending * Provider: Acacia Gan M.D. Date: 0 09/21/2024 Generated for Angelo quan/Adonay/Manjusmitting on: 1 10:57 AM EDT
--- OUTSIDE RECORDS SUMMARY | 2024-09-25 12:00 | XMS_ITS ---
Author Organization [facility] Address [address] [place] [id number] Care Team Providers Care Homemaker Companion Name Role Phone Fady Daly Primary Care Provider [phone] Timothy Gan Unavailable [phone] Results Component Value Reference Range Notes P-CBC with Diff plus Absolut e Counts Reviewed date:09/26/2024 10:51:51 AM Interpretation:Normal Performing Lab: Notes/Report: Test performed by [email or web address], [address] , [address], [place] [address] Biju Kay MD, Business Analyst CLIA: [id number] WBC 5.8 3.8-11.5 K/uL Red Blood Cell Count (RBC) 5.18 4.20-5.70 M/mm 3 Hemoglobin (Hgb) 15.6 13.1-17.5 gm/dL Hematocrit (HCT) 45.9 39.0-51.0 % MCV 88.6 79.0-99.0 fL MCH 30.1 26.9-35.0 pg MCHC 34.0 30.4-34.8 g/dL RDW 41.4 38.2-53.0 fL Platelet Count 255 137-397 K/cumm Neutrophils Automated 56.3 41.0-77.0 % Lymphocytes Automated 29.4 14.0-48.0 % Monocytes Automated 9.3 4.0-13.0 % Eosinophils Automated 3.5 0.0-8.0 % Basophils Automated 1.2 0.0-1.5 % Immature Granulocyte Automated 0.3 0.0-1.0 % Absolute Neutrophil Count 3.3 2.0-8.2 K/uL Absolute Lymphocyte Count 1.7 0.9-3.6 K/uL Absolute Monocyte Count 0.5 0.3-1.0 K/uL Absolute Eosinophil Count 0.2 0.0-0.6 K/uL Absolute Basophil Count 0.1 0.0-0.1 K/uL Absolute Immature Granulocyte 0.02 0.00-0.03 K /uL P-Comprehensive Metabolic Pa jo ann (CMP) Reviewed date:09/26/2024 10:51:52 AM Interpretation:Normal Performing Lab: Notes/Report: Test performed by [facility] [address] [place], [place] [address] [address] , [address], [place] [address] Biju Kay MD, Business Analyst CLIA: [id number] Sodium 139 135-145 mmol/L Potassium 4.1 3.5-5.3 mmol/L Chloride 105 97-108 mmol/L CO2 23 20-32 mmol/L Glucose 121 65-99 mg/dL BUN 15 8-23 mg/dL Creatinine 0.83 0.70-1.30 mg/dL Calcium 9.4 8.6-10.4 mg/dL eGFR by Creatinine 96 >59 mL/min/1.73m2 Protein 6.7 6.0-8.3 g/dL Albumin 4.5 3.5-5.3 g/dL Alkaline Phosphatase 77 40-129 IU/L ALT (SGPT) 40 <5-55 IU/L AST (SGOT) 28 <5-46 IU/L Bilirubin, Total 0.8 <0.2-1.2 mg/dL A/G Ratio 2.0 1.1-2.5 P-Iron Binding Cap Reviewed date:09/26/2024 10:51:52 AM Interpretation:Normal Performing Lab: Notes/Report: Test performed by [facility] [address] [place], [place] [address] , [address], [place] [address] Biju Kay MD, Business Analyst CLIA: [id number] Iron Binding Cap 353 250-450 ug/dL P-Iron Reviewed date:09/26/2024 10:51:52 AM Interpretation:Normal Performing Lab: Notes/Report: Test performed by [facility] [address] [place] [address] , [address], [place] [address] Biju Kay MD, Business Analyst CLIA: [id number] Iron 99 59-158 ug/dL Percent Saturation Reviewed date:09/26/2024 10:51:52 AM Interpretation:Normal Performing Lab: Notes/Report: Test performed by [facility] [address] [place] [address] , [address], [place] [address] Biju Kay MD, Business Analyst CLIA: [id number] Percent Saturation 28 20-50 % REASON FOR VISIT blood work Medications Medication SIG (Take, Route, Frequency, Duration) Notes Start Date End Date Status Metoprolol Succinate 25 MG 1 capsule Ora lly Once a day Active Losartan Potassium 50 MG 1 tab(s) orally once a day Active Rosuvastatin Calcium 10 MG 1 tab(s) oral ly once a day 02/24/2022 Active Asacol HD 800 MG 1 tab(s) Orally once daily; Duration: 90 days Active metFORMIN HCl 500 MG 1/2 tab orally once daily Active Encounters Encounter Location Date Provider Diagnosis [facility] [address] [place], [place] [id number] 09/25/2024 Timothy Gan Crohns disease of sm all intestine without complication K50.00 Assessments Encounter Date Diagnosis (ICD Code) Assessment Notes Treatment Notes Treatment Clinical Notes Section Notes 09/25/2024 Crohns disease of small intestine without complication (ICD-10 - K50.00) Plan Of Treatment Next Appt Details Provider Name:Timothy winston, 02/20/2025 09:30:00 AM, [address], [address], [place], [place], [id number], Provider Name:Timothy winston, 06/19/2025 09:15:00 AM, [address], [address], [place], [place], [id number], Progress Notes * MARIANNA BRANDDOB:[birth year] (64 yo M)Acc No.[id number]:09/25/2024 Patient: Jigna JAYLYNMARIANNA James Provider: Acacia Gan M.D. :1960 A ge:64 Y S ex:Male Date:09/25/2024 Address:[facility] [id number] Pcp:Fady Daly Subjective: * Chief Complaints: * 1 . Blood work. * Medical History: * Medications: T aking [...] * Vitals: Assessment: * Assessment: 1. C rohns disease of small intestine without complication - K50.00 Plan: * Treatment: Value Reference Range A bsolute Basophil Count 0.1 0.0-0.1 - K/uL * A bsolute Eosinophil Count 0.2 0.0-0.6 - K/uL * A bsolute Immature Granulocyte 0.02 0.00-0.03 - K/uL * A bsolute Lymphocyte Count 1.7 0.9-3.6 - K/uL * A bsolute Monocyte Count 0.5 0.3-1.0 - K/uL * A bsolute Neutrophil Count 3.3 2.0-8.2 - K/uL * B asophils Automated 1.2 0.0-1.5 - % * E osinophils Automated 3.5 0.0-8.0 - % * H ematocrit (HCT) 45.9 39.0-51.0 - % * H emoglobin (Hgb) 15.6 13.1-17.5 - gm/dL * I mmature Granulocyte Automated 0.3 0.0-1.0 - % * L ymphocytes Automated 29.4 14.0-48.0 - % * M CH 30.1 26.9-35.0 - pg * M CHC 34.0 30.4-34.8 - g/dL * M CV 88.6 79.0-99.0 - fL * M onocytes Automated 9.3 4.0-13.0 - % * P latelet Count 255 137-397 - K/cumm * R ed Blood Cell Count (RBC) 5.18 4.20-5.70 - M/ mm3 * R DW 41.4 38.2-53.0 - fL * N eutrophils Automated 56.3 41.0-77.0 - % * W BC 5.8 3.8-11.5 - K/uL * Brigitte Singh 09/26/2024 10:51: 26 AM EDT > Pt informed ?LAB: P-Comprehensive Metabolic Panel (CMP) (Collection Date & Time - 09/25/2024 03:06 PM)?Normal* Value Reference Range A /G Ratio 2.0 1.1-2.5 - * A lbumin 4.5 3.5-5.3 - g/dL * A lkaline Phosphatase 77 40-129 - IU/L * A LT (SGPT) 40 <5-55 - IU/L * A ST (SGOT) 28 <5-46 - IU/L * B ilirubin, Total 0.8 <0.2-1.2 - mg/dL * B UN 15 8-23 - mg/dL * C alcium 9.4 8.6-10.4 - mg/dL * C hloride 105 97-108 - mmol/L * C O2 23 20-32 - mmol/L * C reatinine 0.83 0.70-1.30 - mg/dL * G lucose 121 H 65-99 - mg/dL * P otassium 4.1 3.5-5.3 - mmol/L * S odium 139 135-145 - mmol/L * P rotein 6.7 6.0-8.3 - g/dL * e GFR by Creatinine 96 >59 - mL/min/1.73m2 * Brigitte Singh 09/26/2024 10:51: 26 AM EDT > Pt informed ?LAB: P-Iron Binding Cap (Collection Date & Time - 09/25/2024 03:06 PM)? Normal* Value Reference Range I ekaterina Binding Cap 353 250-450 - ug/dL * Brigitte Singh 09/26/2024 10:51: 26 AM EDT > Pt informed * Labs: * L ab: P-Iron (Collection Date & Time - 09/25/2024 03:06 PM) N ormal Value Reference Range I ekaterina 99 59-158 - ug/dL * [facility], IT support 09/26/2024 05:50:09 : This order was created by the Interface. Francisco Brigitte 09/26/2024 10:51:26 AM EDT > Pt informed ?Lab: Percent Saturation (Collection Date & Time - 09/25/2024 03:06 PM) ?Normal* Value Reference Range P ercent Saturation 28 20-50 - % * [facility], IT support 09/26/2024 05:50:09 : This order was created by the Interface. Francisco Brigitte 09/26/2024 10:51:26 AM EDT > Pt informed * Images: Billing Information: * Visit Code: * Procedure Codes: * Electronic signature of Alis Gan MD on 01/28/2025 at 10:57 AM EDT Sign off status: Pending * Provider: Acacia Gan M.D. Date: 0 09/25/2024 Generated for Angelo quan/Adonay/Jimmy on: 1 10:57 AM EDT
--- OUTSIDE RECORDS SUMMARY | 2024-12-20 07:15 | XMS_ITS ---
Author Organization [facility] Address [address] [facility] [address] [place] [id number] Care Team Providers Care Picker Feeder Name Role Phone Fady Daly Primary Care Provider Timothy Gan Unavailable [phone] Allergies Allergen (clinical drug ingredient) Drug/Non Drug Allergy documented on EMR Reaction Allergy Type Onset Date Status Substance with penicillin structure and antibacterial mechanism of action (substance) Penicillins Unknown Drug Allergy Active Results Component Value Reference Range Notes Glucose (In-House) Reviewed date:12/21/2024 12:07:11 PM Interpretation: Performing Lab: Notes/Report: blood glucose 102 74 - 106 mg/dL Glycohemoglobin A1c (in hous e) Reviewed date:12/21/2024 12:07:04 PM Interpretation: Performing Lab: Notes/Report: glycohemoglobin 6.8% 5 - 6.5 % REASON FOR VISIT check up Medications Medication SIG (Take, Route, Frequency, Duration) Notes Start Date End Date Status Metoprolol Succinate 25 MG 1 capsule Ora lly Once a day; Duration: 90 days Active Rosuvastatin Calcium 10 MG 1 tab(s) oral ly once a day; Duration: 90 days 02/24/2022 Active Losartan Potassium 50 MG 1 tab(s) orally once a day; Duration: 90 days Active Entyvio 300 MG as directed Intravenous Active metFORMIN HCl 500 MG 1/2 tab orally once daily; Duration: 90 days Active Immunizations Vaccine Route Administration Date Status Comme nts Fluzone High Dose (65yr and older) IM Intramuscular 12/20/2024 Administered Vital Signs Blood pressure systolic 130 mm Hg 12/21/19 25 Blood pressure diastolic 80 mm Hg 025 Heart Rate 70 /min 12/20/2024 Height 70 in 12/20/2024 Weight 208.0 lbs 12/20/2024 BMI 29.84 kg/m2 12/20/2024 Encounters Encounter Location Date Provider Diagnosis [facility] [address] [facility] [address] [facility] [address] [place] [id number] 12/20/2024 Timothy Gan Type 2 diabetes fabiana itus without complication, without long-term current use of insulin E11.9 ; Essential hypertension I10 ; Mixed hyperlipidemia E78.2 ; Encounter for immunization Z23 and BMI 29.0-29.9,adult Z68.29 Assessments Encounter Date Diagnosis (ICD Code) Assessment Notes Treatment Notes Treatment Clinical Notes Section Notes 12/20/2024 Type 2 diabetes mellitus without complication, without long-term current use of insulin (ICD-10 - E11.9) 12/20/2024 Essential hypertension (ICD-10 - I10) 12/20/2024 Mixed hyperlipidemia (ICD-10 - E78.2) 12/20/2024 Encounter for immunization (ICD-10 - Z23) 12/20/2024 BMI 29.0-29.9,adult (ICD-10 - Z68.29) Plan Of Treatment Medication Medication Name Sig Start Date Stop Date Notes Metoprolol Succinate 25 MG 1 capsule Ora lly Once a day; Duration: 90 days Rosuvastatin Calcium 10 MG 1 tab(s) oral ly once a day; Duration: 90 days 02/24/2022 Losartan Potassium 50 MG 1 tab(s) orally once a day; Duration: 90 days metFORMIN HCl 500 MG 1/2 tab orally once daily; Duration: 90 days Next Appt Details Follow Up: 6 Months, Reason: Provider Name:Timothy winston, 02/20/2025 09:30:00 AM, [address] [facility] [address] [facility], [facility] [address], [place], [phone], Provider Name:Timothy winston, 06/19/2025 09:15:00 AM, [address] [facility] [address] [facility] [address], [place], [phone], Progress Notes * MARIANNA BRANDDOB:[birth year] (64 yo M)Acc No.[id number]:12/20/2024 Progress Notes Patient: MARIANNA MADERA Provider: Acacia Gan M.D. :1960 A ge:64 Y S ex:Male Date:12/20/2024 Address:[address] [place], [place] [id number] Pcp:Fady Daly Subjective: * Chief Complaints: * 1 . Check up. * HPI: C ardiology: 64 year old male presents with c/o Blood Pressure Elevated P t here for follow up on Hypertension. Pt states he is doing well and has no concerns at this time. Pt states he needs refills and to change pharmacy to [facility] in [place]. c/o Hyperlipidemia P t is not fasting today. * Medical History: T ype 2 Diabetes, Dx: 2013, Hypertension, Kidney Stones, Crohn's Disease, Allergic Rhinitis, L5-S1 Pars Defect, Low Back Pain, Lumbar Disc Herniation, Elevated PSA. * Surgical History: B ack, Herniated Disc 11/2009, Dental Implant 04/02/2016, Colonoscopy . * Hospitalization/Major Diagno stic Procedure: K idney Stones , Crohn's Disease , Chest Pain- [facility] ER 05/03/2013, LT Hip/ Leg Pain- [facility] ER 12/08/2014. * Family History: F ather: alive, hyperlipidemia. M other: alive, hyperlipidemia. P aternal Grand Father: . P aternal Grand Mother: alive. M aternal Grand Father: . M aternal Grand Mother: . 1 brother(s) , 2 sister(s) . 1 son(s) , 1 daughter(s) . . * Social History: C URRENT TOBACCO USE: No S moking Status: Patient does NOT smoke. C affeine: no. Exercise: no. Home smoke detector use: yes. Marital Status: . New since last visit: none. Past smoking status: no. Recreational drug use: no. Alcohol: socially, Type: , Frequency: ,Years: , Determination:. Sexually active: yes. * Medications: T aking Entyvio 300 MG Solution Reconstituted as directed Intravenous , Taking metFORMIN HCl 500 MG Tablet 1/2 tab orally once daily , Taking Rosuvastatin Calcium 10 MG Tablet 1 tab(s) orally once a day , Taking Metoprolol Succinate 25 MG Capsule ER 24 Hour Sprinkle 1 capsule Orally Once a day , Taking Losartan Potassium 50 MG Tablet 1 tab(s) orally once a day , Discontinued Mesalamine 800 MG Tablet Delayed Release TAKE ONE TABLET BY MOUTH EVERY DAY , Medication List reviewed and reconciled with the patient * Allergies: P enicillins. Objective: * Vitals: W t: 208.0, Temp: 98.2, BP: 130/80, HR: 70, Nurse: SF, Ht: 70, BMI:29.84. * Examination: E ndocrinology: General Appearance: N AD. T hyroid exam: n o enlargement. L ungs: c lear to auscultation. E xtremities: n o leg edema. S kin: n ormal, no rash. N eurologic Exam: I ntact, gait normal. Assessment: * Assessment: 1. T ype 2 diabetes mellitus without complication, without long-term current use of insulin - E11.9 (Primary) 2 . E ssential hypertension - I10 3 . M ixed hyperlipidemia - E78.2 4 . E ncounter for immunization - Z23 5 . BMI 29.0-29.9,adult - Z68.29 Plan: * Treatment: Value Reference Range b lood glucose 102 74 - 106 mg/dL * Brigitte Singh 12/20/2024 11:55: 59 AM EDT > Provider reviewed results while patient in office. ?LAB: Glycohemoglobin A1c (in house) (Collection Date & Time - 12/20/2024)* Value Reference Range g lycohemoglobin 6.8% 5 - 6.5 % * Brigitte Singh 12/20/2024 11:57: 15 AM EDT > Provider reviewed results while patient in office. 2.?Essential hypertension? Refill Metoprolol Succinate Capsule ER 24 Hour Sprinkle, 25 MG, 1 capsule, Orally, Once a day, 90 days, 90, Refills 1;?Refill Losartan Potassium Tablet, 50 MG, 1 tab(s), orally, once a day, 90 days, 90, Refills 1.??3.?Mixed hyperlipidemia? Refill Rosuvastatin Calcium Tablet, 10 MG, 1 tab(s), orally, once a day, 90 days, 90, Refills 1. ? * Immunizations: Fluzone High Dose (65yr and older) : 0.5 mL (Route: Intramuscular) given by Brigitte Singh on Right Deltoid (Encounter for immunization) * Procedure Codes: G 2211 Complex e/[place], [address] CAPILLARY BLOOD DRAW, 93015 GLUCOSE TEST, 79394 GLYCATED HEMOGLOBIN TEST, Modifiers: QW , 3044F HG A1C LEVEL LT 7.0%, G8420 BMI<30 AND >=22 CALC & DOCU, 1036F TOBACCO NON-USER, G8950 PREHTN/HTN BP DOC INDCD F/U DOC, G8752 MOST RECENT SYSTOLIC BP < 140MM HG, G8754 MOST RECENT DIASTOLIC BP < 90MM HG, 3075F SYST BP GE 130 - 139MM HG, 3079F DIAST BP 80-89 MM HG * Follow Up: 6 Months * Images: Billing Information: * Visit Code: 23788 Office Visit, Est Pt., Level 4. * Procedure Codes: G2211 Complex e/[place]. [address] CAPILLARY BLOOD DRAW. 22463 GLUCOSE TEST. 42423 GLYCATED HEMOGLOBIN TEST. Modifiers: QW 3044F HG A1C LEVEL LT 7.0%. G8420 BMI<30 AND >=22 CALC & DOCU. 1036F TOBACCO NON-USER. G8950 PREHTN/HTN BP DOC INDCD F/U DOC. G8752 MOST RECENT SYSTOLIC BP < 140MM HG. G8754 MOST RECENT DIASTOLIC BP < 90MM HG. 3075F SYST BP GE 130 - 139MM HG. 3079F DIAST BP 80-89 MM HG. * Electronic signature of Alis Gan MD on 01/28/2025 at 10:58 AM EDT Sign off status: Pending * Provider: Acacia Gan M.D. Date: 0 12/20/2024 Generated for Angelo quan/Adonay/Wingitting on: 1 10:58 AM EDT History and Physical Notes * HPI (History of Present Illness) Category Sub-Category Detail Notes Category Not es Cardiology Blood Pressure Elevated Pt here for follow up on Hypertension. Pt states he is doing well and has no concerns at this time. Pt states he needs refills and to change pharmacy to [facility] in [place] Hyperlipidemia Pt is not fasting to day Examination Category Sub-Category Detail Notes Category Not es Endocrinology Lungs: clear to auscultation Extremities: no leg edema General Appearance: NAD Skin: normal, no rash Neurologic Exam: Intact, gait normal Thyroid exam: no enlargement
--- OUTSIDE RECORDS SUMMARY | 2025-01-28 10:57 | XMS_ITS | Encounter Summary ---
Author Organization Healthcare Address [address] [place] [address] Care Team Providers Care Picking Tech Name Role Phone Yazan Daly MD Primary Care Provider [phone] Encounter Details Date Type Department Care Team (Late st Contact Info) Description 05/16/2024 Lab Requisition [facility] [address] [place] [address] Luly Robledo L, DO [address] [place] [address] Encounter for screening for malignant [...] Description 2025 11:40 AM EDT Office Visit [facility] [address] [place] [address] Luly Robledo DO [address] [place] [address] documented as of this encounter Procedures Procedure Name Priority Date/Time Associated Diagnosis Comments SURGICAL PATHOLOGY EXAM Routine 05/16/2024 Encounter for screening for malignant neoplasm of colon documented in this encounter Results * Surgical Pathology Exam (05/16/2024) Case Report Surgical Pathology Case: [id number] Authorizing Provider: Luly Robledo DO Collected: 05/16/2024 Ordering Location: [facility] Received: 05/16/2024 1150 Pathologist: Sumanth Gómez MD Specimens: A) - Colon, Right, right colon biopsy B) - Transverse Colon, transverse polyps C) - Transverse Colon, transverse polyp biopsy D) - Descending Colon, descending polyp E) - Colon, Left, left colon biopsy F) - Sigmoid Colon, rectosigmoid biopsy G) - Rectum, rectum biopsy 05/17/2024 12:35 PM EST [facility] Final Diagnosis A. LARGE INTESTINE, [...] GRANULOMAS OR DYSPLASIA 05/17/2024 12:35 PM EST [facility] at [address] [facility] Clinical Information Z12.11 - Encounter for screening [...] and rectum biopsies 05/17/2024 12:35 PM EST [facility] Gross Description A. RIGHT COLON [...] 0 Nasra Malone 05/17/2024 12:35 PM EST [facility] Note: A resident was involved in the service. I attest I examined the relevant preparations for the specimens and confirmed the diagnosis or interpretation. 05/17/2024 12:35 PM EST [facility] Tissue Rectum structure / Unknown [...] DO LAB PATHOLOGY ORDERABLES Fin al Result [facility] [address] [place] [address] documented in this encounter Visit Diagnoses Diagnosis [...] documented as of this encounter Care Teams Picking Tech Relationship Specialty Start Date End Date Yazan Daly MD [address] [place], [place] [address] PCP - General 08/15/20 documented as of this encounter
--- OUTSIDE RECORDS SUMMARY | 2025-01-28 10:57 | XMS_ITS | Encounter Summary ---
Author Organization [facility] Address [address] [place] [address] Care Team Providers Care Exchange Engineer Name Role Phone Yazan Daly MD Primary Care Provider [phone] Encounter Details Date Type Department Care Team (Late st Contact Info) Description 12/10/2024 Orders Only [facility] Medicine Specialties [address] [place] [address] [place] [address] Crohn's disease of large intestine without complication [...] Description 2025 11:40 AM EDT Office Visit [facility] Medicine Specialties [address] [place] [address] Luly Robledo, DO [address] [place] [address] documented as of this encounter Procedures Procedure [...] documented as of this encounter Care Teams Exchange Engineer Relationship Specialty Start Date End Date Yazan Daly MD [address] [place] [address] PCP - General 08/15/20 documented as of this encounter
--- OUTSIDE RECORDS SUMMARY | 2025-01-28 10:58 | XMS_ITS | Encounter Summary ---
Author Organization Healthcare Address [address] [place] [address] Care Team Providers Care Net Developer Contract Name Role Phone Yazan Daly MD Primary Care Provider [phone] Encounter Details Date Type Department Care Team (Late st Contact Info) Description 11/21/2024 Results Follow-Up [facility] Medicine Specialties [address] [place] [address] Juan Carlos Marks MD [address] [place] [address] Social History Tobacco Use Types [...] 2025 11:40 AM EDT Office Visit [facility] Medicine Specialties [address] [place] [address] Luly Robledo L, DO [address] [place] [address] documented as of this encounter [...] documented as of this encounter Care Teams Net Developer Contract Relationship Specialty Start Date End Date Yazan Daly MD [address] [place] [address] PCP - General 08/15/20 documented as of this encounter
--- OUTSIDE RECORDS SUMMARY | 2025-01-28 10:58 | XMS_ITS | Patient Health Record ---
Author Organization [facility] Address [address] [facility] [address] [place] [id number] Care Team Providers Care Form Setter Supervisor Name Role Phone Fady Daly Primary Care Provider [phone] Timothy Gan Unavailable [phone] Allergies Allergen (clinical drug ingredient) Drug/Non Drug [...] Notes/Report: glycohemoglobin 6.3% 5 - 6.5 % P-CBC with Diff plus Absolut e Counts Reviewed date:09/26/2024 10:51:51 AM Interpretation:Normal Performing Lab: Notes/Report: Test performed by [facility], [place] [address] [place] [address] , [address], [place] [address] Biju Kay MD, Rotary Shear Worker Helper CLIA: [id number] WBC 5.8 3.8-11.5 K/uL Red Blood Cell [...] Interpretation:Normal Performing Lab: Notes/Report: Test performed by [facility], [address] , [address], [place] [address] Biju Kay MD, Rotary Shear Worker Helper CLIA: [id number] Sodium 139 135-145 mmol/L Potassium 4.1 3.5-5.3 [...] Interpretation:Normal Performing Lab: Notes/Report: Test performed by [facility] [address] , [place] [address] Biju Kay MD, Rotary Shear Worker Helper CLIA: [id number] Iron Binding Cap 353 250-450 ug/dL P-Iron Reviewed date:09/26/2024 10:51:52 AM Interpretation:Normal Performing Lab: Notes/Report: Test performed by [facility] [address] , [place] [address] Biju Kay MD, Rotary Shear Worker Helper CLIA: [id number] Iron 99 59-158 ug/dL Percent Saturation Reviewed date:09/26/2024 10:51:52 AM Interpretation:Normal Performing Lab: Notes/Report: Test performed by [facility] [address] , [place] [address] Biju Kay MD, Rotary Shear Worker Helper CLIA: [id number] Percent Saturation 28 20-50 % Glycohemoglobin A1c (in hous e) Reviewed date:12/21/2024 12:07:04 PM Interpretation: Performing Lab: Notes/Report: glycohemoglobin 6.8% 5 - 6.5 % Glucose (In-House) Reviewed date:12/21/2024 12:07:11 PM Interpretation: Performing Lab: Notes/Report: blood glucose 102 74 - 106 mg/dL Glucose (In-House) Reviewed date:08/22/2024 12:19:19 PM Interpretation:144 [...] 129 Performing Lab: Notes/Report: Test performed by [facility] [address] [place] [address] , [address], [place] [address] Biju Kay MD, Rotary Shear Worker Helper CLIA: [id number] Sodium 140 135-145 mmol/L Potassium 4.6 3.5-5.3 [...] 26 Performing Lab: Notes/Report: Test performed by [facility] [address] [place] [address] , [address], [place] [address] Biju Kay MD, Rotary Shear Worker Helper CLIA: [id number] Cholesterol 128 <200 mg/dL Triglycerides 271 <150 [...] Interpretation:5.03 Performing Lab: Notes/Report: Test performed by [facility], [address], [place] [address] Biju Kay MD, Rotary Shear Worker Helper CLIA: [id number] PSA 5.03 <4.00 ng/mL Please note this is an ultrasensitive PSA assay with a lower limit of detection of 0.014 ng/mL. This test is performed by the [facility] ECLIA methodology. Values obtained with different assay [...] Normal Performing Lab: Notes/Report: Test performed by [facility] [address] [place], [place] [address] , [place] [address] Biju Kay MD, Rotary Shear Worker Helper CLIA: [id number] TSH reflex to FT4 2.72 0.43-5.25 mU/L P-Microalbumin/Creatinine, R andom Urine Sample Reviewed date:08/22/2024 12:19:19 PM Interpretation: Normal Performing Lab: Notes/Report: Test performed by [facility] [address] [place] [address] , [address], [place] [address] Biju Kay MD, Rotary Shear Worker Helper CLIA: [id number] Albumin/Creatinine Ratio, Urine <6.10 0-30 ug/m g Microalbumin, Urine, Random <0.3 Creatinine, Urine 49.1 Medications Medication SIG (Take, Route, Frequency, Duration) Notes Start Date End Date Status Entyvio 300 MG as directed Intravenous Active metFORMIN HCl 500 MG 1/2 tab orally once daily; Duration: 90 days Active Rosuvastatin Calcium 10 MG 1 tab(s) oral ly once a day; Duration: 90 days 02/24/2022 Active Losartan Potassium 50 MG 1 tab(s) orally once a day; Duration: 90 days Active Immunizations Vaccine Route Administration Date Status Comme nts COVID 19 Moderna Unknown 05/28/2020 Administered COVID 19 Moderna Unknown 06/25/2020 Administered Fluzone High Dose (65yr and older) IM Intramuscular 02/16/2023 Administered Fluzone High Dose (65yr and older) IM Intramuscular 12/20/2024 Administered Fluzone Quad (6months&older) IM Intramuscular 12/06/2019 Administered Fluzone Quad (6months&older) IM Intramuscular 02/02/2021 Administered PNEUMOVAX 23 VACCINE IM Intramuscular 03/19/2016 Administe red Prevnar (PCV20) IM Intramuscular 02/16/2023 Administered Shingrix Unknown 05/17/2023 Administered Problems Problem Type SNOMED Code ICD Code Onset Dates Problem Status W/U Status Risk Notes Problem Hyperlipidemia (04323669) Hyperlipidemia (272.4) Active confirmed Problem Essential hypertension (15190417) Essential hypertension (I10) Active confirmed Problem Arthropathy of lumbar facet joint (420739329) Lumbar facet arthropathy (M47.816) Active confirmed Problem Body mass index 30+ - obesity (574408076) BMI 30.0-30.9,adult (Z68.30) Active confirmed Problem Sciatica (04812919) Sciatica of left side (M54.32) Active confirmed Problem Mixed hyperlipidemia (855442623) Mixed hyperlipidemia (E78.2) Active confirmed Problem Crohn's disease (92272661) Crohn's disease, unspecified, without complications (K50.90) Active confirmed Problem Sciatica (95936432) Lumbago with sciatica, left side (M54.42) Active confirmed Problem Degeneration of cervical intervertebral disc (39562511) Degenerative disc disease, cervical (M50.30) Active confirmed Problem Neoplasm of skin of back (577987178) Neoplasm of skin of back (D49.2) Active confirmed Problem Crohn's disease of small intestine (58363449) Crohns disease of small intestine without complication (K50.00) Active confirmed Problem Renal stone (97302815) Renal stone (N20.0) Active confirmed Problem Type II diabetes mellitus without complication (533777500) Type 2 diabetes mellitus without complication, without long-term current use of insulin (E11.9) Active confirmed Problem Stress (38132055) Stress (F43.9) Active confirm ed Problem Degenerative disc disease (92422969) DDD (degenerative disc disease), lumbar (M51.36) Active confirmed Problem Elevated PSA (996404961) Elevated PSA (R97.20) Active confirmed Problem Laryngopharyngeal reflux (727483552) Laryngopharyngeal reflux (LPR) (K21.9) Active confirmed Problem Allergic rhinitis (48912921) Allergic rhinitis, unspecified seasonality, unspecified trigger (J30.9) Active confirmed Problem Arthropathy of cervical spine facet joint (disorder) (282988037) Facet arthropathy, cervical (M47.812) Active confirmed Vital Signs Heart Rate 70 /min 12/20/2024 Blood pressure diastolic 80 mm Hg 12/20/2024 Height 70 in 12/20/2024 Blood pressure systolic 130 mm Hg 12/20/2024 Weight 208.0 lbs 12/20/2024 BMI 29.84 kg/m2 12/20/2024 Encounters Encounter Location Date [facility] [id number] [facility]/20/2024 Timothy Goshen Type 2 diabetes fabiana itus without complication, without long-term current use of insulin E11.9 ; Essential hypertension I10 and Internal hemorrhoid K64.[address] [id number] 06/21/2024 Fady Daly Chest pain R07.9 ; Crohns disease of small intestine without complication K50.00 ; Stress F43.9 and Essential hypertension I10 [address] [id number] 07/16/2024 Fady Daly Essential hypertensi on I10 ; Type 2 diabetes mellitus without complication, without long-term current use of insulin E11.9 ; Mixed hyperlipidemia E78.2 and BMI 29.0-29.9,adult Z68.[address] [id number] 08/20/2024 Timothy Goshen Type 2 diabetes fabiana itus without complication, without long-term current use of insulin E11.9 ; Essential hypertension I10 ; Mixed hyperlipidemia E78.2 ; Elevated PSA R97.20 ; Prostate cancer screening Z12.5 and BMI 30.0-30.9,adult Z68.[address] [id number] 09/21/2024 Timothy Goshen Crohn's disease, unspecified, without complications K50.90 [facility] [address] [place], [place] [id number] 09/25/2024 Timothy Goshen Crohns disease of sm all intestine without complication K50.00 [facility] [address] [place], [place] [id number] 12/20/2024 Timothy Goshen Type 2 diabetes fabiana itus without complication, without long-term current use of insulin E11.9 ; Essential hypertension I10 ; Mixed hyperlipidemia E78.2 ; Encounter for immunization Z23 and BMI 29.0-29.9,adult Z68.29 [facility] [address] [place], [place] [id number] 12/20/2024 Timothy Goshen Essential hypertensi on I10 [facility] [address] [place], [place] [id number] 03/26/2024 Fady Daly [facility] [address] [place] [id number] 08/22/2024 Timothybinu Gan [facility] [address] [place], [place] [id number] 09/24/2024 Fady Daly [facility] [address] [place], [place] [id number] 12/21/2024 Fady Daly Type 2 diabetes fabiana itus without complication, without long-term current use of insulin E11.9 ; Mixed hyperlipidemia E78.2 and Essential hypertension I10 Assessments Encounter Date Diagnosis (ICD Code) Assessment Notes Treatment Notes Treatment Clinical Notes Section Notes 02/20/2024 Essential hypertension (ICD-10 - I10) 02/20/2024 Type 2 diabetes mellitus without complication, without long-term current use of insulin (ICD-10 - E11.9) 06/21/2024 Chest pain (ICD-10 - R07.9) Dr. Morrissey will see him today 06/21/2024 Crohns disease of small intestine without complication (ICD-10 - K50.00) 07/16/2024 Type 2 diabetes mellitus without complication, without long-term current use of insulin (ICD-10 - E11.9) 08/20/2024 Essential hypertension (ICD-10 - I10) 07/16/2024 Essential hypertension (ICD-10 - I10) continue current therapy 09/21/2024 Crohn's disease, unspecified, without complications (ICD-10 - K50.90) 09/25/2024 Crohns disease of small intestine without complication (ICD-10 - K50.00) 12/20/2024 Essential hypertension (ICD-10 - I10) 08/20/2024 Type 2 diabetes mellitus without complication, without long-term current use of insulin (ICD-10 - E11.9) 12/20/2024 Type 2 diabetes mellitus without complication, without long-term current use of insulin (ICD-10 - E11.9) 12/20/2024 Essential hypertension (ICD-10 - I10) 12/21/2024 Type 2 diabetes mellitus without complication, without long-term current use of insulin (ICD-10 - E11.9) 12/21/2024 Mixed hyperlipidemia (ICD-10 - E78.2) 12/20/2024 Mixed hyperlipidemia (ICD-10 - E78.2) 07/16/2024 Mixed hyperlipidemia (ICD-10 - E78.2) 08/20/2024 Mixed hyperlipidemia (ICD-10 - E78.2) 06/21/2024 Stress (ICD-10 - F43.9) 02/20/2024 Internal hemorrhoid (ICD-10 - K64.8) 06/21/2024 Essential hypertension (ICD-10 - I10) 07/16/2024 BMI 29.0-29.9,adult (ICD-10 - Z68.29) 12/20/2024 Encounter for immunization (ICD-10 - Z23) 12/21/2024 Essential hypertension (ICD-10 - I10) 08/20/2024 Elevated PSA (ICD-10 - R97.20) 12/20/2024 BMI 29.0-29.9,adult (ICD-10 - Z68.29) 08/20/2024 Prostate cancer screening (ICD-10 - Z12.5) 08/20/2024 BMI 30.0-30.9,adult (ICD-10 - Z68.30) Plan Of Treatment Pending Test Test Name Order Date P-CBC with Diff plus Absolute Counts P-Comprehensive Metabolic Panel (CMP) P-Iron Binding Cap 09/21/2024 Next Appt Details Provider Name:Timothy winston, 02/20/2025 09:30:00 AM, [address], [address], [place], [id number], Provider Name:Timothy winston, 06/19/2025 09:15:00 AM, [address] [facility], [address], [place], [id number], Insurance Providers Payer Name Payer Address Payer Phone Subscriber Number Group Number Insured Name Patient Relationship to Insured Coverage Start Date Coverage End Date MEDICARE PART B [address] [address] [place] [address] [id number] MARIANNA BRAND Self - patient is the insured [employer] MEDICARE SUPPLEMENT [address] [address] [place], [place] [id number] MARIANNA BRAND Self - patient is the insured Medications Administered Medication Instructions Date of Administration Dosage Notes Depo- Medrol 40 mg/ml 06/24/2005 1.5 mL Dexamethasone 12/22/2004 0.5 mL Medical (General) History Medical History History ICD Code Type 2 Diabetes, Dx: 2013 Hypertension Kidney Stones Crohn's Disease Allergic Rhinitis L5-S1 Pars Defect Low Back Pain Lumbar Disc Herniation Elevated PSA Surgical History Surgery Date(Month/Year) Back, Herniated Disc 11/2009 Dental Implant 04/02/2016 Colonoscopy Hospitalization History Reason Date(Month/Year) LT Hip/ Leg Pain- [facility] 12/08/2014 Chest Pain- [facility] 05/03/2013 Crohn's Disease Kidney Stones
--- OUTSIDE RECORDS SUMMARY | 2025-01-28 10:58 | XMS_ITS | Encounter Summary ---
Author Organization Healthcare Address [address] [place] [address] Care Team Providers Care Marketing Information Coordinator Name Role Phone Yazan Daly MD Primary Care Provider [phone] Encounter Details Date Type Department Care Team (Late st Contact Info) Description 09/28/2024 Telephone [facility] [address] [place] [phone] Marisol Mcintosh, PharmD Social History Tobacco Use [...] encounter Miscellaneous Notes * Telephone Encounter - Connie Haas RN - 01/21/2025 1:45 PM EDT Pt should be due 8 weeks infusion approx 02/27/25 IBD monitoring list updated. * Telephone Encounter - Connie Haas RN - 01/21/2025 1:44 PM EDT Images from the original note were not included. * Telephone Encounter - Mary Green RN - 01/15/2025 2:53 PM EDT Faxed records request to [facility] - MR - P: [phone] - F: [phone] - Via [employer] on: 01/15/2025 at 254pm * Telephone Encounter - Mary Green RN - 12/11/2024 7:36 AM EDT Reviewed pt's chart: - TB Gold completed - 12/05/2024; uploaded under Media tab - CBC with diff, CMP, CRP uploaded under Media tab Entyvio week 6 due on or around - 01/02/2025 * Telephone Encounter - Mary Green RN - 12/07/2024 3:16 PM EDT Called [facility] Lab to follow up: - Lab staff [...] with standing infusion lab work orders at [facility] week 2 infusion, scheduled for 12/04/2024: - [facility] - F: [phone] - Via [employer] on 11/27/2024 at 1004am [...] first dose. Specialty Medication: Entyvio Filling Pharmacy/SOC: [facility] * Telephone Encounter - Marisol Mcintosh PharmD - 11/02/2024 9:02 AM EDT Medicare B/Advantage Plan Authorization Information Specialty Medication: Entyvio Diagnosis Code: K50.10 J-code/CPT code/S code: J3380/ 21139,08334/ S9379 Covered by Medicare B: Yes Does the diagnosis, dose, and frequency match an FDA approved dosing schedule? Yes, list prescribeddose/frequency: Entyvio 300mg IV on weeks 0,2,6 then every 8 weeks Site of Care: [facility] Does patient have an Advantage Plan? No. Will review in 12 months. * Telephone Encounter - Mary Green RN - 10/17/2024 11:13 AM EDT Awaiting additional information regarding pt's Entyvio therapy and new insurance plan with pt's senior living at this time. * Telephone Encounter - Marisol Mcintosh PharmD - 09/28/2024 11:58 AM EDT [facility] Summary Patient was assessed via phone for initiation of drug therapy Entyvio for diagnosis Chron's. Plan for administration of therapy in infusion center and planned date of initiation: FE. Anticipated filling pharmacy is [facility]. Education and Counseling Medication specific education [...] Mcintosh PharmD - 09/28/2024 11:53 AM EDT [facility] has received therapy plan for medication Entyvio. [facility] has contacted the patient and are in the process of completing the authorization for preferred site of care. documented in this encounter Plan of Treatment Upcoming Encounters Date Type Department Care Team (Late st Contact Info) Description 2025 11:40 AM EDT [facility] [address], [address] [place] [address] Luly Robledo, [address] [place] [phone] documented as of this encounter Visit Diagnoses [...] documented as of this encounter Care Teams Marketing Information Coordinator Relationship Specialty Start Date End Date Yazan Daly MD [address] [place] [address] PCP - General 08/15/20 documented as of this encounter
--- OUTSIDE RECORDS SUMMARY | 2025-01-28 10:58 | XMS_ITS | Clinical Summary ---
Author Organization Healthcare Address [address] [place] [address] Care Team Providers Care Eyeglass Frame Truer Name Role Phone Yazan Daly MD Primary Care Provider [phone] Allergies Active Allergy Reactions Criticality Noted Date [...] (one) time each day. 05/01/19 22 Active PEJ-PLa-HpJc-NaSu lf-Na Asc-C (MoviPrep) 100 g reconstituted solutionIndicatio [...] Encounters Date Type Department Care Team Description 01/16/2025 Telephone [facility] Medicine Specialties [address] [place] [address] Carole [place] 12/10/2024 Orders Only [facility] Medicine Specialties [address] [place] [address] Carole [place] Crohn's disease of large intestine without complication ([facility]) 11/22/2024 Orders Only [facility] Medicine Specialties [address] [place] [address] Juan Carlos Marks MD Crohn's disease of large intestine without complication ([facility]) (Primary Dx) 11/21/2024 Results Follow-Up [facility] Medicine Specialties [address] [place] [address] Juan Carlos Marks MD 11/20/2024 Orders Only [facility] Medicine Specialties [address] [place] [address] Juan Carlos Marks MD from Last 3 Months Immunizations Immunization Administration [...] Description 2025 11:40 AM EDT Office Visit [place] [facility] [address] [place] [address] Luly Robledo, DO [address] [place] [address] Health Maintenance Due Date Last Done Comments [facility]-Hepatitis C Screening 1960 [facility]-Medicare Annual Wellness (AWV) 1960 [facility]-/Child/Adol SDOH Screenings 1960 [facility]- SDOH Screenings 01/30/1976 [facility]-Adult SDOH Screenings 01/30/1976 [facility]-DTaP,Tdap,and Td Vaccines (1 - Tdap) 1977 CT Colonography 2003 FIT-DNA 2003 FIT 2003 FOBT 2003 Sigmoidoscopy 2003 [id number] Vaccine (3 - Moderna risk series) 07/23/2020 [...] W/O DIFFERENTIAL Routine 11/20/2024 10:30 AM EDT COLONOSCOPY 05/16/2024 8:41 AM EST from Last 3 Months or Most Recently Relevant to Health Maintenance Results * Quantiferon TB Gold (12/10/2024 9:29 AM EDT) Blood Venous blood specimen / Unknown Result [facility] us Juan Carlos Marks MD LAB BLOOD ORDERABLES Final Result EXTERNAL LAB * COMPLETE METABOLIC PROFILE (CMP) (11/20/2024 10:30 AM EDT) Result Nini Marks MD LAB BLOOD ORDERABLES Final Result * CBC W/O Differential (11/20/2024 10:30 AM EDT) Blood Venous blood specimen / Unknown Result Nini Marks MD LAB BLOOD ORDERABLES Final Result * C-Reactive Protein, Plasma (11/20/2024 10:30 AM EDT) Blood Venous blood specimen / Unknown Result [facility] us Juan Carlos Marks MD LAB BLOOD ORDERABLES Final Result * Colonoscopy (05/16/2024 8:41 AM EST) Anatomical [...] to Health Maintenance Insurance MEDICARE Care Teams Eyeglass Frame Truer Relationship Specialty Start Date End Date Yazan Daly MD [address] [place] [address] PCP - General 08/15/20
--- OUTSIDE RECORDS SUMMARY | 2025-01-28 10:58 | XMS_ITS | Encounter Summary ---
Author Organization Healthcare Address [address] [place] [address] Care Team Providers Care Eating Disorder Specialist Name Role Phone Yazan Daly MD Primary Care Provider [phone] Encounter Details Date Type Department Care Team (Late st Contact Info) Description 10/02/2024 Results Follow-Up [facility] Medicine Specialties [address] [place] [address] Juan Carlos Marks MD [address] [place] [address] Social History Tobacco Use Types [...] Description 2025 11:40 AM EDT Office Visit [facility] Medicine Specialties [address] [place] [address] Luly Robledo L, DO [address] [place] [address] documented as of this encounter [...] documented as of this encounter Care Teams Eating Disorder Specialist Relationship Specialty Start Date End Date Yazan Daly MD [address] [place] [address] PCP - General 08/15/20 documented as of this encounter
--- OUTSIDE RECORDS SUMMARY | 2025-01-28 10:59 | XMS_ITS | Encounter Summary ---
Author Organization [facility] Address [address] [place] [address] Care Team Providers Care Operations Intelligence Name Role Phone Yazan Daly MD Primary Care Provider [phone] Encounter Details Date Type Department Care Team (Late st Contact Info) Description 01/16/2025 Telephone [facility] Medicine Specialties [address] [place] [address] [place] [address] Social History Tobacco Use Types Packs/Day Years [...] Haas RN - 01/21/2025 1:44 PM EDT Noted-IBD monitoring list updated. * Telephone Encounter - Carole [place] - 01/16/2025 9:29 AM EDT External labs received from [facility] Date collected: 12/05 and 01/02 documented in this encounter Plan of Treatment Upcoming Encounters Date Type Department Care Team (Late st Contact Info) Description 2025 11:40 AM EDT Office Visit [facility] [address] [place] [address] Luly Robledo L, DO [address] [place] [address] documented as of this encounter [...] documented as of this encounter Care Teams Operations Intelligence Relationship Specialty Start Date End Date Yazan Daly MD [address] [place] [address] PCP - General 08/15/20 documented as of this encounter
--- OUTSIDE RECORDS SUMMARY | 2025-01-28 10:59 | XMS_ITS | Encounter Summary ---
Author Organization Healthcare Address [address] [place] [address] Care Team Providers Care Product Planner Name Role Phone Yazan Daly MD Primary Care Provider [phone] Reason for Referral * Consultation (Routine) - Closed Specialty Diagnoses / Procedures Referred By Contcarter babin Referred To Contact Gastroenterology Diagnoses Crohn's disease of rectum without complication (CMS/HCC) Irritable bowel syndrome, unspecified type Chet Greer MD [address] [place] [address] Phone: tel: fax: Kelsi Singh MD [address] [facility] [address] [place] [address] Phone: tel: fax: Referral ID Status Reason Start Date Expiration Date V isits Requested Visits Authorized [id number] Closed Specialty Services Required 04/02/2024 10/02/2025 1 1 Encounter Details Date Type Department Care Team (Latest Contact Info) Description 04/02/2024 Community [facility] [address] [place] [address] Chet Greer MD [address] [place] [address] Crohn's disease of rectum without complication (CMS/HCC) [...] Description 2025 11:40 AM EDT Office Visit [facility] [address] [place] [address] Luly Robledo L, DO [address] [place] [phone] Scheduled Referrals Name Type Priority Associated Diagnoses [...] documented as of this encounter Care Teams Product Planner Relationship Specialty Start Date End Date Yazan Daly MD [address] [place] [address] PCP - General 08/15/20 documented as of this encounter
[2025-01-31 07:11] LABS: Calprotectin, Fecal 30 ug/g (0-120)
== END 2025-01-28 23:59 | disposition home or self-care (01) ==
LOC: LAB 10:44
PROVIDERS: PCP Family Medicine; Visit Provider Internal Medicine Gastroenterology
DX: K52.9 Noninfective gastroenteritis and colitis, unspecified (principal)
CPT/HCPCS: 83993

== ENCOUNTER 2025-02-27 13:38 | Outpatient (CLI) | payer MEDICARE, SELFPAY ==
--- OUTSIDE RECORDS SUMMARY | 2024-08-28 10:20 | XMS_ITS | Encounter Summary ---
Author Organization [facility] Address [address] [place] [address] Care Team Providers Care Bond Underwriter Name Role Phone Yazan Daly MD Primary Care Provider [phone] Reason for Referral * Consultation (Routine) - Closed Specialty Diagnoses / Procedures Referred By Maci babin Referred To Contact Diagnoses IBD (inflammatory bowel disease) Juan Carlos Marks MD [address] [address] Phone: tel: fax: Referral ID Status Reason Start Date Expiration Date Visits Re quested Visits Authorized [id number] Closed 08/28/2024 02/27/2026 1 1 * Imaging (Routine) - Pending Review Specialty Diagnoses / Procedures Referred By Maci babin Referred To Contact Gastroenterology Diagnoses IBD (inflammatory bowel disease) External prolapsed hemorrhoids Procedures Flexible Sigmoidoscopy - Juan Carlos Farah MD [address] [address] Phone: tel: fax: Referral ID Status Reason Start Date Expiration Date Visits Requested Visits Authorized [id number] Pending Review Specialty Services Required 08/28/2024 02/27/2026 1 1 Reason for Visit * Reason Comments Ulcerative colitis, left sided, with rec garret bleeding (CMS/H Encounter Details Date Type Department Care Team (Late st Contact Info) Description 08/28/2024 11:20 AM EDT Telemedicine [facility] Medicine Specialties [address] [place] [address] Juan Carlos Marks MD [address] [place] [address] IBD (inflammatory bowel disease) (Primary Dx); External prolapsed hemorrhoids Social History Tobacco Use Types Packs/Day Years Used Date Smoking Tobacco: Former Cigarettes 1 11 0 04/12/1975 - 04/12/1986 Smokeless Tobacco: Never Alcohol Use Standard Drinks/Week Comments Yes 2 (1 standard drink = 0.6 oz pur e alcohol) PHQ-2 Answer Date Recorded Patient Health Questionnaire-2 Score 0 2025 PHQ-9 Answer Date Recorded Patient Health Questionnaire-9 Score 0 2025 Sex and Gender Information Value Date Recorded Sex Assigned at Male 01/28/2025 1:50 PM EDT Legal Sex Male 8:58 PM EDT Gender Identity Male 01/28/2025 1:50 PM EDT Sexual Orientation Asexual 01/28/2025 1: 50 PM EDT documented as of this encounter Last Filed Vital Signs Vital Sign Reading Time Taken Comments Blood Pressure 145/92 08/28/2024 11:25 AM EDT Pulse 63 08/28/2024 11:25 AM EDT Temperature 36.9 C (98.5 F) 08/28/2024 11:25 AM EDT Respiratory Rate - - Oxygen Saturation 96% 08/28/2024 11: 25 AM EDT Inhaled Oxygen Concentration - - Weight 94.8 kg (208 lb 15.9 oz) 025 11:25 AM EDT Height 175.3 cm (5' 9 ) 08/28/2024 11:2 5 AM EDT Body Mass Index 30.86 08/28/2024 11:25 AM EDT documented in this encounter Functional Status * Over the past 2 weeks, how often have you been bothered by any of the following problems? Question Answer Date of Assessment Author Little interest or pleasure in doing things Not at all 2025 11:52 AM Mali Deleon Feeling down, depressed, or hopeless Not at all 2025 11:52 AM Mali Deleon Patient Health Questionnaire -2 Score 0 2025 11:52 AM Mali Deleon * Question Answer Date of Assessment Author Trouble falling or staying a sleep, or sleeping too much Not at all 2025 11:52 AM Mali Deleon Feeling tired or having aysha le energy Not at all 2025 11:52 AM Mali Deleon Poor appetite or overeating Not at all 2025 11 :52 AM Mali Deleon Feeling bad about yourself - or that you are a failure or have let yourself or your family down Not at all 2025 11:52 AM Fady Deleon Trouble concentrating on thi ngs, such as reading the newspaper or watching television Not at all 2025 11:52 AM Mali Deleon Moving or speaking so slowly that other people could have noticed? Or the opposite - being so fidgety or restless that you have been moving around a lot more than usual. Not at all 2025 11:52 AM Mali Deleon Thoughts that you would be b trish off or hurting yourself in some way Not at all 2025 11:52 AM Mali Deleon Patient Health Questionnaire -9 Score 0 2025 11:52 AM Mali Deleon * How difficult have these problems made it for you to do your work, take care of things at home, or get along with other people? Answer Date of Assessment Author Not difficult at all 08/28/2024 11:25 AM Danielle Ramos * How difficult have these problems made it for you to do your work, take care of things at home, or get along with other people? Answer Date of Assessment Author Not difficult at all 2025 11:52 AM EDT Mali Li documented as of this encounter Miscellaneous Notes * Addendum Note - Enrique Eddy - 08/28/2024 11:20 AM EDTAddended by: ENRIQUE EDDY on: 10/02/2024 07:43 AM Modules accepted: Orders * Addendum Note - Enrique Eddy - 08/28/2024 11:20 AM EDTAddended by: ENRIQUE EDDY on: 02/05/2025 07:40 AM Modules accepted: Orders * Progress Notes - Bryant Keller MD - 08/28/2024 11:20 AM EDT Images from the original note were not included. [facility] Patient Care Team: Yazan Daly MD as PCP - General Established Patient Note, 08/28/2024 Raad Brand is a 64 y.o. male presenting to clinic for 4 month follow up Subjective Patient presents for follow-up of IBD and hemorrhoid management. Reports formed stools with occasional blood approximately once monthly. Denies fatigue. Patient expresses frustration regarding hemorrhoid management. Hemorrhoid is intermittently prolapsed and tender, particularly during morning showers. Previous treatment with medicated suppositories was ineffective. Patient can manually reduce the hemorrhoid, but it prolapses again within 30 minutes. Reports occasional alcohol use. 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 Concerned about hemorrhoid impact on future travel plans. Answers submitted by the patient for this visit: Inflammatory Bowel Disease (Submitted on 08/28/2024) When you are not experiencing symptoms of your inflammatory bowel disease, how many bowel movementsdo you typically have each day?: 3 Over the last 3 days, what is the maximum number of bowel movements that you had in a single day?: 5 Over the last 3 days, have you had any bowel movements where you passed blood without stool?: No Since your last visit, have you received any vaccinations?: No Since the last visit, have you had an infection?: No In the past three months, have you used tobacco in any form?: No During the last year, how many days have you missed work or school because of your inflammatory bowel disease?: 0 During the last year, how many days have you been hospitalized because of your inflammatory bowel disease?: 0 During the last year, how many days have you visited a hospital emergency department because of your inflammatory bowel disease?: 0 During the last month, have you taken narcotic pain medications (such as Percocet, oxycodone, Oxycontin, morphine, Vicodin, Dilaudid, MS Contin) for your inflammatory bowel disease?: No During the last month, have you awoken at night to move your bowels?: No During the last month, have you had leakage of your stool while sleeping?: No During the last month, have you had incontinence of stool while you were awake?: No During the last month have you unintentionally lost weight?: No During the last 3 days, have you had a fever?: No During the last 3 days, have you had eye irritation?: No During the last 3 days, have you had mouth sores?: No During the last 3 days, have you had a sore throat?: No During the last 3 days, have you had chest pain?: No During the last 3 days, have you had shortness of breath?: No During the last 3 days, have you had numbness or tingling in your hands or feet?: No During the last 3 days, have you had a skin rash?: No During the last 3 days, have you had pain or swelling in your joints?: No During the last 3 days, have you had bruising or bleeding?: No During the last 3 days, have you felt depressed or blue?: No See problem based HPI below. ROS: A 14 point ROS was completed and reviewed and is otherwise negative except as per HPI Current Outpatient Medications Medication Instructions hydrocortisone (ANUSOL-HC) 25 mg, Rectal, Nightly, Take prior to procedure as directed losartan (COZAAR) 50 mg, Daily mesalamine (ASACOL) 3,200 mg, Oral, Daily metFORMIN (GLUCOPHAGE) 500 mg, Daily metoprolol succinate XL (TOPROL-XL) 25 mg, Daily omeprazole (PRILOSEC) 40 mg, Daily TGG-ELj-UbHb-NaSulf-Na Asc-C (MoviPrep) 100 g reconstituted solution Drink 8 oz every 10-15 minutesuntil solution is gone rosuvastatin (CRESTOR) 10 mg, Daily Allergies[1] reports that he quit smoking about 38 years ago. His smoking use included cigarettes. He started smoking about 49 years ago. He has a 11 pack-year smoking history. He has never used smokeless tobacco. reports current alcohol use of about 2.0 standard drinks of alcohol per week. Objective 06/03/2015 1:06 PM 12/10/2015 12:02 PM 12/15/2016 7:58 AM 06/20/2018 8:39 AM 08/08/2018 3:25 PM 05/01/2024 8:27 AM 08/28/2024 11:25 AM Vitals Systolic 126 130 145 Diastolic 78 84 92 Heart Rate 63 Temp 36.9 C Height (cm) 177.8 cm 177.8 cm 177.8 cm 177.8 cm 177.8 cm 175.3 cm Weight (kg) 93.9 kg 92.99 kg 92.67 kg 93.1 kg 93.9 kg 92.987 kg 94.8 kg BMI 29.7 kg/m2 29.42 kg/m2 29.31 kg/m2 29.45 kg/m2 29.7 kg/m2 29.41 kg/m2 30.86 kg/m2 BSA (m2) 2.15 m2 2.14 m2 2.14 m2 2.14 m2 2.15 m2 2.14 m2 2.15 m2 Physical Exam Vitals reviewed. Constitutional: General: He is not in acute distress. Appearance: He is obese. He is not toxic-appearing. HENT: Head: Normocephalic. Eyes: General: Right eye: No discharge. Left eye: No discharge. Extraocular Movements: Extraocular movements intact. Cardiovascular: Rate and Rhythm: Normal rate and regular rhythm. Pulses: Normal pulses. Heart sounds: Normal heart sounds. No friction rub. Pulmonary: Effort: Pulmonary effort is normal. No respiratory distress. Chest: Chest wall: No tenderness. Abdominal: General: There is no distension. Palpations: There is no mass. Tenderness: There is no guarding. Comments: Deferred BETO Genitourinary: Comments: deferred Musculoskeletal: General: No deformity or signs of injury. Normal range of motion. Cervical back: Normal range of motion. No rigidity or tenderness. Neurological: General: No focal deficit present. Mental Status: He is alert and oriented to person, place, and time. Psychiatric: Behavior: Behavior normal. Lab Results Component Value Date WBC 5.3 03/10/2015 HGB 15.1 03/10/2015 HCT 45.0 03/10/2015 MCV 87 03/10/2015 PLT 266 03/10/2015 No results found for: IRON , TIBC , FERRITIN No results found for: RETICCTPCT No results found for: HGBA1C No results found for: CHOL No results found for: HDL No results found for: LDLCALC No results found for: TRIG Lab Results Component Value Date CREATININE 0.79 (L) 03/10/2015 BUN 11 03/10/2015 NA 144 03/10/2015 K 4.5 03/10/2015 CL 105 03/10/2015 CO2 26 03/10/2015 No results found for: MICROALBUR , [id number] Creatinine clearance cannot be calculated (Patient's most recent lab result is older than the maximum 7 days allowed.) No results found for: ALT , AST , GGT , ALKPHOS , BILITOT No results found for: PROT , ALBUMIN No results found for: TSH , M0AEVWN , G7JMENM , THYROIDAB No results found for: FOLATE No results found for: [id number] No echocardiogram results found for the past 12 months Lab Frequency Next Occurrence Colonoscopy Once 05/01/2024 IBD [facility] Once 05/01/2024 Assessment/Plan Raad was seen today for ulcerative colitis, left sided, with rectal bleeding (cms/h. Diagnoses and all orders for this visit: IBD (inflammatory bowel disease) - Calprotectin, Stool; Future - Flexible Sigmoidoscopy - [facility]; Future - Follow Up GI; Future - CBC and differential; Future - Comprehensive metabolic panel; Future - Iron & Total Iron Binding Capacity, Plasma (Includes Transferrin); Future External prolapsed hemorrhoids - Flexible Sigmoidoscopy - [facility]; Future Crohn's Disease / Left sided Ulcerative Colitis (definitive diagnosis unconfirmed): - Initiate Entyvio therapy due to ongoing inflammation despite current treatment with mesalamine - Continue mesalamine until disease remission is achieved - Repeat fecal calprotectin prior to next visit External Hemorrhoids: - Conservative management with twice-daily sitz baths using hot water and Aveeno powder - Apply witch vivienne after sitz baths - Scheduled for flexible sigmoidoscopy with sclerotherapy in third week of November (-) - Simple prep with two enemas, NPO after midnight Surveillance: - Plan for repeat colonoscopy in one year from initiation of Entyvio therapy Return to clinic in 5 months for follow-up Bryant Keller MD [facility] Internal Medicine/Psychiatry PGY1 [1] Allergies Allergen Reactions Penicillins Hives and Rash Cosigned by Juan Carlos Marks MD at 08/31/2024 11:11 AM EDT Associated attestation - Juan Carlos Marks MD - 08/31/2024 11:11 AM EDT I saw and evaluated the patient with the resident/fellow. I discussed the case with the resident/fellow and agree with the findings and plan as documented.Pt has mild UC - fec patricia WNL but path + on colonoscopy 05/29 - F. LARGE INTESTINE, RECTOSIGMOID COLON, BIOPSY: - MILDLY ACTIVE CHRONIC COLITIS WITH EROSION - NEGATIVE FOR GRANULOMAS OR DYSPLASIA G. RECTUM, BIOPSY: - PATCHY MILDLY ACTIVE CHRONIC PROCTITIS - NEGATIVE FOR GRANULOMAS OR DYSPLASIA We will proceed to entyvio for UC and Tx hemorrhoids - will schedule felx sig w/ sclerotherapy to help reduce size of hemorrhoids documented in this encounter Plan of Treatment Upcoming Encounters Date Type Department Care Team (Latest Contact Info) Description 05/10/2025 11:50 AM EST Appointment [facility] [address] [place] [id number] Luly Robledo DO [address] [place] [id number] 05/22/2025 8:00 AM EST Hospital Encounter [facility] [address] [place] [id number] Naseem Madison MD [address] [place] [id number] 05/22/2025 8:00 AM EST - 05/22/2025 9:40 AM EST Surgery [facility] [address] [place] [address] Naseem Madison MD [address] [place] [address] HEMORRHOIDECTOMY [[id number] (CPT )] 07/30/2025 11:40 AM EDT [facility] Visit [facility] [address] [place] [address] Luly Robledo DO [address] [facility] [address] [place] [address] Scheduled Orders Name Type Priority Associated Diagnoses Orde r Schedule Flexible Sigmoidoscopy - [facility] Endoscopy Routine IBD (inflammatory bowel disease) External prolapsed hemorrhoids Expected: 08/28/2024, Expires: 08/28/2025 Scheduled Procedures Name Priority Associated Diagnoses Date/Ti me HEMORRHOIDECTOMY Grade IV hemorrhoids 05/22/2025 8:00 AM EST Scheduled Referrals Name Type Priority Associated Diagnoses Orde r Schedule Follow Up GI Outpatient Referral Routine IBD (inflammatory bowel disease) Expected: 01/28/2025 (Approximate), Expires: 09/28/2025 documented as of this encounter Results * Calprotectin, Stool (02/05/2025 7:41 AM EST) Stool Stool specimen / Unknown Juan Carlos Marks MD LAB BODY FLUIDS AND STOOLS ORDERABLES Final Result EXTERNAL LAB * Iron & Total Iron Binding Capacity, Plasma (Includes Transferrin) (10/02/2024 7:43 AM EDT) Blood Venous blood specimen / Unknown Juan Carlos Marks MD LAB BLOOD ORDERABLES Final Result Performing Organization Address [facility] de Phone Number EXTERNAL LAB * Comprehensive metabolic panel (10/02/2024 7:43 AM EDT) Blood Venous blood specimen / Unknown Result Nini berman Juan Carlos Marks MD LAB BLOOD ORDERABLES Final Result Performing Organization Address [facility] de Phone Number EXTERNAL LAB * CBC and differential (10/02/2024 7:43 AM EDT) Blood Venous blood specimen / Unknown Result Nini Marks MD LAB BLOOD ORDERABLES Final Result Performing Organization Address [facility] de Phone Number EXTERNAL LAB documented in this encounter Visit Diagnoses Diagnosis IBD (inflammatory bowel disease)- Primary Other and unspecified noninfectious gastroenteritis and colitis External prolapsed hemorrhoids Grade IV hemorrhoids documented in this encounter Additional Health Concerns Assessment Noted Time PHQ-9 Depression Total Score: 0 08/29/19 25 11:25 AM EDT A fall risk assessment has been complete d for the patient 08/28/2024 11:26 AM EDT A Body Mass Index follow-up plan has been documented for the patient 05/01/2024 9:29 AM EST documented as of this encounter Care Teams Bond Underwriter Relationship Specialty Start Date End Date Yazan Daly MD [address] [place] [address] PCP - General 08/15/20 documented as of this encounter
--- OUTSIDE RECORDS SUMMARY | 2025-01-29 10:40 | XMS_ITS | Encounter Summary ---
Author Organization Healthcare Address [address] [place] [address] Care Team Providers Care Workers' Compensation Claims Examiner Name Role Phone Yazan Daly MD Primary Care Provider Reason for Referral * Consultation (Routine) - Closed Specialty Diagnoses / Procedures Referred By Maci babin Referred To Contact Colon and Rectal Surgery Diagnoses External prolapsed hemorrhoids Luly Robledo DO [address] [address] Phone: tel: fax: Colorectal Surgery [address] [place] [address] Phone: tel: Referral ID Status Reason Start Date Expiration Date V isits Requested Visits Authorized [id number] Closed Specialty Services Required 02/07/2025 08/09/2026 1 1 * Imaging (Routine) - Pending Review Specialty Diagnoses / Procedures Referred By Maci babin Referred To Contact Gastroenterology Diagnoses IBD (inflammatory bowel disease) Procedures Colonoscopy Luly Robledo DO [address] [address] Phone: tel: fax: Referral ID Status Reason Start Date Expiration Date Visits Requested Visits Authorized [id number] Pending Review Specialty Services Required 02/07/2025 08/09/2026 1 1 * Consultation (Routine) - Authorized Specialty Diagnoses / Procedures Referred By Maci babin Referred To Contact Diagnoses IBD (inflammatory bowel disease) Luly Robledo DO [address] [address] Phone: tel: fax: Referral ID Status Reason Start Date Expiration Date V isits Requested Visits Authorized [id number] Authorized 2025 07/31/2026 1 1 Reason for Visit * Reason Comments Crohn's Disease * Consultation (Routine) - Closed Specialty Diagnoses / Procedures Referred By Maci babin Referred To Contact Diagnoses IBD (inflammatory bowel disease) Juan Carlos Marks MD [address] [address] Phone: tel: fax: Referral ID Status Reason Start Date Expiration Date Visits Re quested Visits Authorized [id number] Closed 08/28/2024 02/27/2026 1 1 Encounter Details Date Type Department Care Team (Late st Contact Info) Description 2025 11:40 AM EDT Office Visit [facility] [address] [place] [address] Luly Robledo DO [address] [address] IBD (inflammatory bowel disease) (Primary Dx); [...] Sign Reading Time Taken Comments Blood Pressure 138/79 2025 11:45 AM EDT Pulse 68 2025 11:45 AM EDT Temperature 36.7 C (98 F) 2025 11:45 AM EDT Respiratory Rate 18 2025 11:45 AM EDT Oxygen Saturation 99% 2025 11:45 AM EDT Inhaled Oxygen Concentration - - Weight 94 kg (207 lb 3.7 oz) 2025 11:45 AM EDT Height 177.8 cm (5' 10 ) 2025 11:45 AM EDT Body Mass Index 29.73 2025 11:45 AM EDT documented in this encounter Functional Status * Over the past 2 weeks, how often have you been bothered by any of the following problems? Question Answer Date of Assessment Author Little interest or pleasure in doing things Not at all 2025 11:52 AM Mali Deleon Feeling down, depressed, or hopeless Not at all 2025 11:52 AM CLAIRET Mal[place] Angulo Patient Health Questionnaire -2 Score 0 2025 11:52 AM CLAIRET [place] Angulo * Question Answer Date of Assessment Author Trouble falling or staying a sleep, or sleeping too much Not at all 2025 11:52 AM CLAIRET [place] Angulo Feeling tired or having aysha le energy Not at all 2025 11:52 AM Mali Deleon Poor appetite or overeating Not at all 2025 11 :52 AM EDT Mali Angulo Feeling bad about yourself - or that you are a failure or have let yourself or your family down Not at all 2025 11:52 AM EDT Fady Angulo Trouble concentrating on thi ngs, such as [...] Not difficult at all 2025 11:52 AM Mali Marin documented as of this encounter Miscellaneous Notes * Progress Notes - Luly Robledo DO - 2025 11:40 AM EDT Outpatient Gastroenterology, Hepatology and Nutrition Clinic Note: Patient: Raad Brand Date of : 1960 Subjective: History of present illness: Mr. Raad Brand is a 65 y.o. year old male being seen today in clinic for follow-up for crohn's disease. He has a past medical history of Crohn's disease ([facility]), Diabetes mellitus (2011), Hypertension (2009), Inflammatory bowel disease (1997), Influenza (05/01/24), Kidney stones, Polyp ofsigmoid colon, and Prediabetes. Pleasant 65yo male here for follow-up of IBD. Last saw Dr. Marks in August 2024. I had scoped him in May 2024. Mild active colitis on biopsies. I took off numerous SSAs, recommended repeat colonoscopy in 6 months. Since last visit, has started vedolizumab. He has been doing great on this, prefers the convenienceof not taking pills. Still is bothered significantly by hemorrhoids, which are external, non- reducible, and painful. He has tried extended therapy w/ preparation H, sitz baths, steroid suppositories, and they are not reducible. He is interested in meeting with colorectal surgery and hearing options. IBD hx: He has carried a diagnosis of left sided colitis for years. Multiple colonoscopies with mild inflammation Was previously on asacol Started vedolizumab in November 2024 Review of Systems: 14 point ROS negative except where noted in HPI Past Medical History[1] Surgical History[2] Family History[3] Social History[4] Allergies[5] Current Medications[6] Objective: Weight: 94 kg (207 lb 3.7 oz) Body mass index is 29.73 kg/m??. Physical Examination: General Appearance: Awake, alert, oriented x 3, in no apparent distress Head: Normocephalic, atraumatic Eyes: non-icteric, EOMI. Lungs: no respiratory distress on room air Abdomen: Abdomen soft, non-tender, non-distended. No rebound or guarding. No ascites, no organomegaly. Extremities: No lower extremity edema. Neurologic: Mental status intact. No gross neurologic deficits. Laboratory: CBC WBC ?? Hb ?? Plt ?? Hct ?? INR ?? PTT ?? BMP Na ?? Cl ?? BUN ?? Glu ?? K ?? Co2 ?? Cr ?? Mg ?? Phos ?? LFT AST ?? AlkPhos ?? T Prot ?? ALK ?? T Bili ?? Alb ?? Imaging: No images are attached to the encounter. No results found for this or any previous visit. Assessment and Plan: Mr. Raad Brand is a 65 y.o. year old male being seen today in clinic for follow-up for IBD.He has a past medical history of Crohn's disease ([facility]), Diabetes mellitus (2011), Hypertension (2009), Inflammatory bowel disease (1997), Influenza (05/01/24), Kidney stones, Polyp of sigmoid colon, and Prediabetes. 1) IBD- most consistent with left sided UC -past tx: 5-ASA -current therapy: Vedolizumab -doing well clinically. Prefers vedolizumab infusions not interested in transitioning to injectable. Gets infusions at [facility]. 2) Hemorrhoids- grade IV -failed conservative medical therapy 3) Sessile serrated adenomas -removed numerous SSAs (10) during procedure in May, with several remaining. 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 RECOMMENDATIONS: - continue vedolizumab -will get him back in for colonoscopy w/ me both to assess response to vedolizumab as well as to continue removing polyps -will refer to colorectal surgery to discuss options for hemorrhoid tx RTC In 6 mo Luly Robledo DO [1] Past Medical History: Diagnosis Date Crohn's disease (CMS/HCC) Diabetes mellitus 2011 Hypertension 2009 Inflammatory bowel disease 1997 Influenza 05/01/24 Kidney stones Polyp of sigmoid colon Prediabetes Pre-diabetes [2] Past Surgical History: Procedure Laterality Date BACK SURGERY N/A Back Surgery from [facility] COLONOSCOPY N/A Colonoscopy from [facility] VASECTOMY 1985 [3] Family History Problem Relation Name Age of Onset Cancer Other Diabetes Other Hyperlipidemia Father Lung cancer Other Cancer Paternal Grandfather Austin Brand [4] Social History Tobacco Use Smoking status: Former Current packs/day: 0.00 Average packs/day: 1 pack/day for 11.0 years (11.0 ttl pk-yrs) Types: Cigarettes Start date: 04/12/1975 Quit date: 04/12/1986 Years since quittin.8 Smokeless tobacco: Never Vaping Use Vaping status: Never Used Substance Use Topics Alcohol use: Yes Alcohol/week: 2.0 standard drinks of alcohol Types: 2 Cans of beer per week Drug use: Never [5] Allergies Allergen Reactions Penicillins Hives and Rash [6] Current Outpatient Medications: losartan (Cozaar) 50 MG tablet, Take 1 tablet (50 mg) by mouth 1 (one) time each day., Disp: , Rfl: metFORMIN (Glucophage) 500 MG tablet, Take 1 tablet (500 mg) by mouth 1 (one) time each day., Disp:, Rfl: metoprolol succinate XL (Toprol-XL) 25 MG 24 hr tablet, Take 1 tablet by mouth daily., Disp: , Rfl: omeprazole (PriLOSEC) [address] capsule, Take 1 capsule by mouth daily., Disp: , Rfl: rosuvastatin (Crestor) 10 MG tablet, Take 1 tablet (10 mg) by mouth 1 (one) time each day., Disp: ,Rfl: hydrocortisone (Anusol-HC) 25 MG suppository, Insert 1 suppository (25 mg) into the rectum nightly.Take prior to procedure as directed (Patient not taking: Reported on 2025), Disp: 90 suppository, Rfl: 0 mesalamine (Asacol) 800 MG EC tablet, Take 4 tablets by mouth daily. (Patient not taking: Reported on 2025), Disp: 120 tablet, Rfl: 11 DAO-FAw-YyMn-NaSulf-Na Asc-C (MoviPrep) 100 g reconstituted solution, Drink 8 oz every 10-15 minutes until solution is gone (Patient not taking: Reported on 2025), Disp: 1 each, Rfl: 0 documented in this encounter Plan of Treatment Upcoming Encounters Date Type Department Care Team (Latest Contact Info) Description 05/10/2025 11:50 AM EST Appointment [facility] Endoscopy [address] [place] [address] Luly Robledo DO [address] [facility] [address] [place] [address] 05/22/2025 8:00 AM EST Hospital Encounter [facility] OPERATING ROOM [address] [place] [phone] Naseem Madison MD [address] [facility] [address] [place] [address] 05/22/2025 8:00 AM EST - 05/22/2025 9:40 AM EST Surgery [facility] OPERATING ROOM [address] [place] [address] Naseem Madison MD [address] [facility] [address] [place] [address] HEMORRHOIDECTOMY [[id number] (CPT )] 07/30/2025 11:40 AM EDT Office Visit [facility] [address] [place] [address] VenkatLuly L, DO [address] [place] [address] Scheduled Orders Name Type Priority Associated Diagnoses Orde r Schedule Colonoscopy Endoscopy Routine IBD (inflammatory bowel disease) Expected: 02/07/2025, Expires: 08/07/2026 Scheduled Procedures Name Priority Associated Diagnoses Date/Ti me HEMORRHOIDECTOMY Grade IV hemorrhoids 05/22/2025 8:00 AM EST Scheduled Referrals Name Type Priority Associated Diagnoses Orde r Schedule Follow Up GI Outpatient Referral Routine IBD (inflammatory bowel disease) Expected: 07/30/2025, Expires: 03/01/2026 Ambulatory referral to Colorectal Surgery Outpatient Referral Routine External prolapsed hemorrhoids Expected: 02/07/2025 (Approximate), Expires: 08/11/2026 documented as of this encounter Visit Diagnoses Diagnosis IBD (inflammatory bowel disease)- Primary Other and unspecified noninfectious gastroenteritis and colitis External prolapsed hemorrhoids Grade IV hemorrhoids documented in this encounter Additional Health Concerns Assessment Noted Time PHQ-9 Depression Total Score: 0 01/30/20 25 11:52 AM EDT A fall risk assessment has been complete d for the patient 2025 11:52 AM EDT A Body Mass Index follow-up plan has been documented for the patient 02/07/2025 9:37 PM EST documented as of this encounter Care Teams Workers' Compensation Claims Examiner Relationship Specialty Start Date End Date Yazan Daly MD [address] [place] [address] PCP - General 08/15/20 documented as of this encounter
--- OUTSIDE RECORDS SUMMARY | 2025-02-19 16:00 | XMS_ITS | Encounter Summary ---
Author Organization Healthcare Address [address] [place] [address] Care Team Providers Care Osd Clerk Name Role Phone Yazan Daly MD Primary Care Provider [phone] Reason for Visit * Reason Comments Consult * Consultation (Routine) - Closed Specialty Diagnoses / Procedures Referred By Maci t Referred To Contact Colon and Rectal Surgery Diagnoses External prolapsed hemorrhoids Luly Robledo DO [address] [place] [address] Phone: tel: fax: Colorectal Surgery [address] [place] [address] Phone: tel: Referral ID Status Reason Start Date Expiration Date V isits Requested Visits Authorized [id number] Closed Specialty Services Required 02/07/2025 08/09/2026 1 1 Encounter Details Date Type Department Care Team (Late st Contact Info) Description 02/19/2025 4:00 PM EST Consult [facility] [address] [place] [address] Naseem Madison MD [address] [facility] [address] [place] [address] Grade IV hemorrhoids (Primary Dx) Social History Tobacco Use Types Packs/Day Years Used Date Smoking Tobacco: Former Cigarettes 1 11 0 04/12/1975 - 04/12/1986 Smokeless Tobacco: Never Tobacco Cessation:Counseling Given: Not Answered Alcohol Use Standard Drinks/Week Comments Yes 2 [...] Sign Reading Time Taken Comments Blood Pressure 146/94 02/19/2025 3:42 PM EST Pulse 63 02/19/2025 3:42 PM EST Temperature 36.2 C (97.1 F) 02/19/2025 3:40 PM EST Respiratory Rate 16 02/19/2025 3:40 PM EST Oxygen Saturation 97% 02/19/2025 3:40 PM EST Inhaled Oxygen Concentration - - Weight 93.6 kg (206 lb 6.4 oz) 02/19/2025 3:40 P M EST Height 177.8 cm (5' 10 ) 02/19/2025 3:40 PM EST Body Mass Index 29.62 02/19/2025 3:40 PM EST documented in this encounter Functional Status * Calculated C-SSRS Risk Score (Lifetime/Recent) Answer Date of Assessment Author No Risk Indicated 02/19/2025 3:40 PM EST Luly Cole * Question Answer Date of Assessment Author 1. Wish to be (Past 1 Month) No 025 3:40 PM EST Luly Dubois 2. Non-Specific Active Suici yolanda Thoughts (Past 1 Month) No 02/19/2025 3:40 PM EST Winnie Dubois 6. Suicidal Behavior (Lifetime) No 3:40 PM EST Luly Dubois documented as of this encounter Miscellaneous Notes * Progress Notes - Mike Boyd MD - 02/19/2025 4:00 PM EST Chief Complaint Patient presents with Consult HPI: Mr. Raad Brand is a 65 y.o. male who is referred to our clinic by Juan Carlos Marks for evaluation of Hemorrhoids. Mr. Brand reports several year history of hemorrhoids which have caused him intermittent pain. He has previous tried various cream, enemas, and suppositories for his hemorrhoids which have been unsuccessful. He has a history of Crohn's/UC for which he takes Entyvio and is well-controlled. He denies previous abdominal surgeries. He does not have perirectal rectal involvement of his IBD. He denies previous history of perirectal fistula, abscess or other pathology. He has soft bowel movements, no history of constipation. Patient does not take any blood thinners. On exam, patient has thrombosed prolapsed internal hemorrhoids in the left lateral position. Primary Care Physician: Yazan Daly MD Past Medical History[1] Surgical History[2] Current Outpatient Medications Medication Instructions losartan (COZAAR) 50 mg, Daily metFORMIN (GLUCOPHAGE) 500 mg, Daily metoprolol succinate XL (TOPROL-XL) 25 mg, Daily omeprazole (PRILOSEC) 40 mg, Daily rosuvastatin (CRESTOR) 10 mg, Daily Allergies[3] Review of Systems Constitutional: Negative. HENT: Negative. Eyes: Negative. Respiratory: Negative. Cardiovascular: Negative. Gastrointestinal: Negative. Endocrine: Negative. Genitourinary: Negative. Musculoskeletal: Negative. Skin: Negative. Allergic/Immunologic: Negative. Neurological: Negative. Hematological: Negative. Psychiatric/Behavioral: Negative. Visit Vitals BP (!) 146/94 (BP Location: Right arm, Patient Position: Sitting) Pulse 63 Temp (!) 36.2 ??C (97.1 ??F) (Temporal) Ht 1.778 m (5' 10 ) Wt 93.6 kg (206 lb 6.4 oz) SpO2 97% BMI 29.62 kg/m?? Physical Exam Vitals reviewed. Constitutional: General: He is not in acute distress. Appearance: He is not ill-appearing. HENT: Head: Normocephalic and atraumatic. Right Ear: External ear normal. Left Ear: External ear normal. Mouth/Throat: Mouth: Mucous membranes are moist. Eyes: Extraocular Movements: Extraocular movements intact. Pupils: Pupils are equal, round, and reactive to light. Cardiovascular: Rate and Rhythm: Normal rate. Pulmonary: Effort: Pulmonary effort is normal. No respiratory distress. Abdominal: General: Abdomen is flat. There is no distension. Palpations: Abdomen is soft. Tenderness: There is no abdominal tenderness. Genitourinary: Comments: Thrombosed, prolapsed internal hemorrhoids in the left lateral position Musculoskeletal: General: Normal range of motion. Cervical back: Normal range of motion. Skin: General: Skin is warm. Capillary Refill: Capillary refill takes less than 2 seconds. Neurological: General: No focal deficit present. Mental Status: He is alert. Assessment & Plan In summary, Mr. Brand is a 65 y.o. male with prolapsed left lateral internal hemorrhoid. We had a long discussion regarding treatment of his prolapsed internal hemorrhoids. We discussed excisional hemorrhoidectomy as recommended treatment given size and location of hemorrhoids. We discussed risks and benefits including infection, bleeding, hemorrhoid recurrence and pain. Patient agreeable to proceed with operative hemorrhoidectomy permitting schedule availability. Plan - Excisional hemorrhoidectomy pending availability, likely May [address] Madison - Please reach out to clinic with any questions or concerns prior to the operative [1] Past Medical History: Diagnosis Date Awareness under anesthesia Woke up during colonoscopy Crohn's disease (CMS/[facility]) Diabetes mellitus 2011 Hypertension 2009 Inflammatory bowel disease 1997 Influenza 05/01/2024 Kidney stones Polyp of sigmoid colon Prediabetes Pre-diabetes [2] Past Surgical History: Procedure Laterality Date BACK SURGERY N/A Back Surgery from [facility] COLONOSCOPY N/A Colonoscopy from [facility] VASECTOMY 1985 [3] Allergies Allergen Reactions Penicillins Hives and Rash Cosigned by Naseem Madison MD at 02/20/2025 4:03 PM EST Associated attestation - Naseem Madison MD - 02/20/2025 4:03 PM EST I saw and evaluated the patient with the resident/fellow. I discussed the case with the resident/fellow and agree with the findings and plan as documented. Mr. Brand is a 65-year-old male with prolapsing hemorrhoids causing intermittent pain and occasional bleeding. Occurring in the setting of inflammatory bowel disease which is well controlled with Entyvio. No perianal involvement. Scheduled for upcoming colonoscopy in May 2025. Clinical anal examination, including anoscopy, consistent with prolapsing hemorrhoid in the right posterior positionwith other additional hemorrhoidal columns present. Patient was properly identified. Placed in the left lateral decubitus position. Visual inspection of perianal skin demonstrated prolapsing hemorrhoid in the right posterior position. No other masses or lesions identified. Perianal skin was soft and without induration or fluctuance. Digital rectal examination was performed. No masses or lesions palpated. Anoscopy performed. Lighted anoscope was advanced into the anorectal canal. Mucosa appeared healthy. Prominent hemorrhoids noted in each columnwith prolapse of the right posterior. Additional findings include the following: No evidence of inflammatory bowel disease. Patient tolerated the procedure well. Procedure was performed by myself, OSMIN Madison MD; without complication. Findings discussed with patient. Post- procedure instructions discussed. PLAN FOLLOWS: Schedule excisional hemorrhoidectomy in May 2025; patient request. documented in this encounter Plan of Treatment Upcoming Encounters Date Type Department Care Team (Latest Contact Info) Description 05/10/2025 11:50 AM EST Appointment [facility] Endoscopy [address] [place] [address] Luly Robleod DO [address] [place] [address] 05/22/2025 8:00 AM EST Hospital Encounter [facility] A OPERATING ROOM [address] [place] [address] Naseem Madison MD [address] [place] [address] 05/22/2025 8:00 AM EST - 05/22/2025 9:40 AM EST Surgery [facility] A OPERATING ROOM [address] [place] [address] Naseem Madison MD [address] [place] [address] HEMORRHOIDECTOMY [[id number] (CPT )] 07/30/2025 11:40 AM EDT Office Visit [facility] [address] [place] [address] Luly Robledo L, DO [address] [place] [address] Scheduled Procedures Name Priority Associated Diagnoses Date/Ti me HEMORRHOIDECTOMY Grade IV hemorrhoids 05/22/2025 8:00 AM EST documented as of this encounter Visit Diagnoses Diagnosis Grade IV hemorrhoids- Primary Grade IV hemorrhoids- Primary Grade IV hemorrhoids documented in this encounter Additional Health Concerns Assessment Noted Time PHQ-9 Depression Total Score: 0 01/30/20 11:52 AM EDT A fall risk assessment has been complete d for the patient 02/19/2025 3:40 PM EST A Body Mass Index follow-up plan has been documented for the patient 02/20/2025 4:03 PM EST documented as of this encounter Care Teams Osd Clerk Relationship Specialty Start Date End Date Yazan Daly MD [address] [place] [address] PCP - General 08/15/20 documented as of this encounter
[2025-02-27 13:38] VITALS: BMI 28.7
--- OUTSIDE RECORDS SUMMARY | 2025-02-27 13:44 | XMS_ITS | Encounter Summary ---
Author Organization Healthcare Address [address] [place] [address] Care Team Providers Care Rack Room Worker Name Role Phone Yazan Daly MD Primary Care Provider [phone] Encounter Details Date Type Department Care Team (Latest Contact Info) Description 01/28/2025 Travel Social History Tobacco Use Types Packs/Day Years [...] PM EDT documented as of this encounter Plan of Treatment Upcoming Encounters Date Type Department Care Team (Latest Contact Info) Description 05/10/2025 11:50 AM EST Appointment [facility] Endoscopy [address] [place] [address] Luly Robledo, DO [address] [place] [address] 05/22/2025 8:00 AM EST Hospital Encounter [facility] A OPERATING ROOM [address] [place] [address] Naseem Madison MD [address] [place] [address] 05/22/2025 8:00 AM EST - 05/22/2025 9:40 AM EST Surgery [facility] A OPERATING ROOM [address] [place] [address] Naseem Madison MD [address] [facility] [address] [place] [address] HEMORRHOIDECTOMY [[id number] (CPT )] 07/30/2025 11:40 AM EDT Office Visit [place] [facility] [address] [place] [address] Luly Robledo, [address] [place] [address] Scheduled Procedures Name Priority Associated Diagnoses Date/Ti [...] documented as of this encounter Care Teams Rack Room Worker Relationship Specialty Start Date End Date Yazan Daly MD [address] [place] [address] PCP - General 08/15/20 documented as of this encounter
--- OUTSIDE RECORDS SUMMARY | 2025-02-27 13:44 | XMS_ITS | Encounter Summary ---
Author Organization Healthcare Address [address] [place] [address] Care Team Providers Care Health Plan Advisor Name Role Phone Yazan Daly MD Primary Care Provider [phone] Reason for Referral * Consultation (Routine) - Closed Specialty Diagnoses / Procedures Referred By Contcarter babin Referred To Contact Gastroenterology Diagnoses Crohn's disease of rectum without complication (CMS/HCC) Irritable bowel syndrome, unspecified type Chet Greer MD [address] [place] [address] Phone: tel: fax: Kelsi Singh MD [address] [facility] [address] [place] [address] Phone: tel: fax: Referral ID Status Reason Start Date Expiration Date V isits Requested Visits Authorized [id number] Closed Specialty Services Required 04/02/2024 10/02/2025 1 1 Encounter Details Date Type Department Care Team (Latest Contact Info) Description 04/02/2024 Community [facility] [address] [place] [address] Chet Greer MD [address] [place] [address] Crohn's disease of rectum without complication (CMS/HCC) [...] EST Appointment PAV S Endoscopy [address] [place] [address] Luly Robledo, DO [address] [facility] [address] [place] [address] 05/22/2025 8:00 AM EST Hospital Encounter PAV A OPERATING ROOM [address] [place] [address] Naseem [place] MD [address] [place] [address] 05/22/2025 8:00 AM EST - 05/22/2025 9:40 AM EST Surgery PAV A OPERATING ROOM [address] [place] [address] Naseem [place] MD [address] [place] [address] HEMORRHOIDECTOMY [[id number] (CPT )] 07/30/2025 11:40 AM EDT Office Visit [place] [facility] Medicine Specialties [address], [address] [place] [address] Luly Robledo, DO [address] [place] [address] Scheduled Procedures Name Priority Associated Diagnoses Date/Ti [...] (CMS/HCC)- Primary Irritable bowel syndrome, unspecified type Grade IV hemorrhoids documented in this encounter Additional Health Concerns Infection Onset Date Last Indicated Resolved Time Influenza 05/01/2024 05/01/2024 05/29/2024 5:23 AM EST documented as of this encounter Care Teams Health Plan Advisor Relationship Specialty Start Date End Date Yazan Daly MD [address] [place] [address] PCP - General 08/15/20 documented as of this encounter
--- OUTSIDE RECORDS SUMMARY | 2025-02-27 13:44 | XMS_ITS | Encounter Summary ---
Author Organization [facility] Address [address] [place] [address] Care Team Providers Care Crate Icer Name Role Phone Yazan Daly MD Primary Care Provider [phone] Encounter Details Date Type Department Care Team (Late st Contact Info) Description 01/16/2025 Telephone [facility] Medicine Specialties [address], [address] [place] [address] [place] [address] Social History Tobacco Use Types Packs/Day Years [...] PM EDT documented as of this encounter Miscellaneous Notes * Telephone Encounter - Connie Haas RN - 01/21/2025 1:44 PM EDT Noted-IBD monitoring list updated. * Telephone Encounter - Carloe [place] - 01/16/2025 9:29 AM EDT External labs received from [facility] Date collected: 12/05 and 01/02 documented in this encounter Plan of Treatment Upcoming Encounters Date Type Department Care Team (Latest Contact Info) Description 05/10/2025 11:50 AM EST Appointment PAV S Endoscopy [address] [place] [address] Luly Robledo, DO [address] [facility] [address] [place] [address] 05/22/2025 8:00 AM EST Hospital Encounter PAV A OPERATING ROOM [address] [place] [address] Naseem [place] MD [id number] [place] [address] 05/22/2025 8:00 AM EST - 05/22/2025 9:40 AM EST Surgery PAV A OPERATING ROOM [address] [place] [address] Naseem [place] MD [id number] [place] [address] HEMORRHOIDECTOMY [[id number] (CPT )] 07/30/2025 11:40 AM EDT Office Visit [place] [facility] [address] [place] [address] Luly Robledo, DO [address] [facility] [place] [address] Scheduled Procedures Name Priority Associated Diagnoses Date/Ti [...] documented as of this encounter Care Teams Crate Icer Relationship Specialty Start Date End Date Yazan Daly MD [address] [place] [address] PCP - General 08/15/20 documented as of this encounter
--- OUTSIDE RECORDS SUMMARY | 2025-02-27 13:44 | XMS_ITS | Encounter Summary ---
Author Organization Healthcare Address [address] [place] [address] Care Team Providers Care Automatic Vulcanizing Operator Name Role Phone Yazan Daly MD Primary Care Provider [phone] Encounter Details Date Type Department Care Team (Latest Contact Info) Description 02/19/2025 Travel Social History Tobacco Use Types Packs/Day [...] PM EDT documented as of this encounter Functional Status * Calculated C-SSRS Risk Score (Lifetime/Recent) Answer Date of Assessment Author No Risk Indicated 02/19/2025 3:40 PM Luly Bermudez * Question Answer Date of Assessment Author 1. Wish to be (Past 1 Month) No 025 3:40 PM Luly Licona 2. Non-Specific Active Suici yolanda Thoughts (Past 1 Month) No 02/19/2025 3:40 PM Winnie Liconatney 6. Suicidal Behavior (Lifetime) No 3:40 PM EST Luly Dubois documented as of this encounter Plan of Treatment Upcoming Encounters Date Type Department Care Team (Latest Contact Info) Description 05/10/2025 11:50 AM EST Appointment PAV S Endoscopy [address] [place] [address] Luly Robledo, DO [address] [facility] [address] [place] [address] 05/22/2025 8:00 AM EST Hospital Encounter PAV A OPERATING ROOM [address] [place] [address] Naseem [place] MD [id number] [place] [address] 05/22/2025 8:00 AM EST - 05/22/2025 9:40 AM EST Surgery PAV A OPERATING ROOM [address] [place] [address] Naseem [place] MD [id number] [place] [address] HEMORRHOIDECTOMY [[id number] (CPT )] 07/30/2025 11:40 AM EDT Office Visit [facility] Clinic Medicine Specialties [address], [address]nd [place] [address] Luly Robledo, DO [address] [facility] [address] [place] [address] Scheduled Procedures Name Priority Associated Diagnoses Date/Ti [...] documented as of this encounter Care Teams Automatic Vulcanizing Operator Relationship Specialty Start Date End Date Yazan Daly MD [address] [place] [address] PCP - General 08/15/20 documented as of this encounter
--- OUTSIDE RECORDS SUMMARY | 2025-02-27 13:44 | XMS_ITS | Encounter Summary ---
Author Organization Healthcare Address [address] [place] [address] Care Team Providers Care Associate Scientist Name Role Phone Yazan Daly MD Primary Care Provider [phone] Encounter Details Date Type Department Care Team (Late st Contact Info) Description 11/21/2024 Results Follow-Up [facility] Medicine Specialties [address], [address] [place] [address] Juan Carlos Marks MD [address] [place] [address] Social History Tobacco Use Types [...] EST Appointment PAV S Endoscopy [address] [place] [address] Luly Robledo, DO [address] [facility] [address] [place] [address] 05/22/2025 8:00 AM EST Hospital Encounter PAV A OPERATING ROOM [address] [place] [address] Naseem [place] MD [address] [place] [address] 05/22/2025 8:00 AM EST - 05/22/2025 9:40 AM EST Surgery PAV A OPERATING ROOM [address] [place] [address] Naseem [place] MD [id number] [place] [address] HEMORRHOIDECTOMY [[id number] (CPT )] 07/30/2025 11:40 AM EDT Office Visit [place] [facility] [address] [place] [address] Luly Robledo, DO [address] [facility] [address] [place] [address] Scheduled Procedures Name Priority Associated Diagnoses Date/Ti [...] documented as of this encounter Care Teams Associate Scientist Relationship Specialty Start Date End Date Yazan Daly MD [address] [facility] [address] [place] [address] PCP - General 08/15/20 documented as of this encounter
--- OUTSIDE RECORDS SUMMARY | 2025-02-27 13:44 | XMS_ITS | Clinical Summary ---
Author Organization Healthcare Address [address] [place] [address] Care Team Providers Care County Bailiff Name Role Phone Yazan Daly MD Primary Care Provider [phone] Allergies Active Allergy Reactions Criticality Noted Date [...] (one) time each day. 05/01/19 22 Active metoprolol succinate XL (Toprol-XL) 25 MG 24 hr tablet Take 1 tablet by mouth daily. 08/21/19 25 Active omeprazole (PriLOSEC) [address] capsule Take 1 capsule by mouth daily. 08/06/19 25 Active FMX-TYp-UrOz-Livan ulf-Na Asc-C (MoviPrep) 100 g reconstituted solutionIndicati ons:Colitis Drink 8 oz every 10-15 minutes until solution is gone 1 each 05/02/19 25 025 Discontin ued(Per Patient Report) hydrocortisone (Anusol-HC) 25 MG suppository Insert 1 suppository (25 mg) into the rectum nightly. Take prior to procedure as directed 90 suppository 06/22/19 25 025 Discontin ued(Per Patient Report) mesalamine (Asacol) 800 MG EC tablet Take 4 tablets by mouth daily. 120 tablet 11 06/28/19 025 Discontin ued(Per Patient Report) Active Problems Problem Noted Date Diagnosed Date Grade IV hemorrhoids 02/19/2025 Piriformis syndrome of left side 05/01/2024 Lumbosacral disc disease 01/07/2015 Sciatica 01/07/2015 Crohn's disease of large intestine without compl ication 12/02/2011 Essential (primary) hypertension 11/12/2011 Resolved Problems Problem Noted Date Diagnosed Date Resolved Date Influenza 05/01/2024 12/23/2024 Encounters Date Type Department Care Team Description 02/19/2025 4:00 PM EST Consult [facility] General Surgery [address], [address] [place] [address] Naseem [place] MD Grade IV hemorrhoids (Primary Dx) 02/19/2025 Travel 02/05/2025 Orders Only [facility] Medicine Specialties 0 [facility], [address] [place] [address] Miriam Castellanos IBD (inflammatory bowel disease) 2025 11:40 AM EDT Office Visit [facility] Medicine Specialties [address] [place] [address], [address] [place] [address] Luly Robledo, IBD (inflammatory bowel disease) (Primary Dx); External prolapsed hemorrhoids 2025 Travel 01/28/2025 Travel 01/16/2025 Telephone [facility] Medicine Specialties [address] [place] [address], [address] [place] [address] Carole [place] 12/10/2024 Orders Only [facility] Medicine Specialties [address] [place] [address], [address] [place] [address] Carole [place] Crohn's disease of large intestine without complication (CMS/HCC) from Last 3 Months Immunizations Immunization Administration [...] Orientation Asexual 01/28/2025 1: 50 PM EDT Last Filed Vital Signs Vital Sign Reading [...] Mass Index 29.62 02/19/2025 3:40 PM EST Plan of Treatment Upcoming Encounters Date Type Department Care Team (Latest Contact Info) Description 05/10/2025 11:50 AM EST Appointment PAV S Endoscopy [facility] [place] [address] Luly Robledo, DO [address] [place] [address] 05/22/2025 8:00 AM EST Hospital Encounter PAV A OPERATING ROOM [address] [place] [address] Naseem [place] MD [address] [place] [address] 05/22/2025 8:00 AM EST - 05/22/2025 9:40 AM EST Surgery PAV A OPERATING ROOM [address] [place] [address] Naseem [place] MD [address] [facility] [address] [place] [address] HEMORRHOIDECTOMY [[id number] (CPT )] 07/30/2025 11:40 AM EDT Office Visit [place] [facility] Medicine Specialties [address], [address] [place] [address] Luly Robledo, DO [address] [facility] [address] [place] [address] Scheduled Procedures Name Priority Associated Diagnoses Date/Ti me HEMORRHOIDECTOMY Grade IV hemorrhoids 05/22/2025 8:00 AM EST Health Maintenance Due Date Last Done Comments [facility]-Hepatitis C Screening 1960 [facility]-Medicare Annual Wellness (AWV) 1960 [facility]-/Child/Adol SDOH Screenings 1960 [facility]- SDOH Screenings 01/30/1976 [facility]-Adult SDOH Screenings 01/30/1976 [facility]-DTaP,Tdap,and Td Vaccines (1 - Tdap) 06/07/1996 06/06/1996 CT Colonography 2003 FIT-DNA 2003 FIT 2003 FOBT 2003 Sigmoidoscopy 2003 [id number] Vaccine (3 - Moderna risk series) 07/23/2020 06/25/2020, 05/28/2020 [facility]-Abdominal Aortic Aneurysm (AAA) Screening 2023 [facility]-Depression Screening 2026 2025, 01/03 Colonoscopy 05/16/2034 05/16/2024, 05/05, 03/30/2017, Additional history exists [facility]-Colorectal Cancer Screening 05/16/2034 [facility]-Pneumococcal Vaccine: 50+ Years Completed 02/16/2023, 03/19/2016, 12/03/2011 [facility]-RSV Vaccine: 60+ Years or Completed 05/17/2023 [facility]-Zoster Vaccines Completed 08/11/2023, [facility]-Influenza Vaccine Completed 12/20/2024 , 02/02/2021, 12/06/2019, Additional history exists [facility]-Obesity Intervention Completed 025, 2025, 05/01/2024 HPV Vaccines Aged Out No longer [...] Procedure Name Priority Date/Time Associated Diagnosis Comments CALPROTECTIN, FECAL BY IMMUNOASSAY (SO) Routine 02/05/2025 7:41 AM EST IBD (inflammatory bowel disease) QUANTIFERON TB GOLD PLUS Routine 12/10/2024 9:29 AM EDT Crohn's disease of large intestine without complication (CMS/HCC) COLONOSCOPY 05/16/2024 8:41 AM EST from Last 3 Months or Most Recently Relevant to Health Maintenance Results * Calprotectin, Stool (02/05/2025 7:41 AM EST) Stool Stool specimen / Unknown Juan Carlos Marks MD LAB BODY FLUIDS AND STOOLS ORDERABLES Final Result EXTERNAL LAB * Quantiferon TB Gold (12/10/2024 9:29 AM EDT) Blood Venous blood specimen / Unknown Juan Carlos Marks MD LAB BLOOD ORDERABLES Final Result Performing Organization Address City/[facility]/ZIP Co de Phone Number EXTERNAL LAB * [...] Recently Relevant to Health Maintenance Insurance MEDICARE [facility] Care Teams County Bailiff Relationship Specialty Start Date End Date Yazan Daly MD [address] [place] [address] PCP - General 08/15/20
--- OUTSIDE RECORDS SUMMARY | 2025-02-27 13:44 | XMS_ITS | Encounter Summary ---
Author Organization [facility] Address [address] [place] [address] Care Team Providers Care Color Paste Mixing Supervisor Name Role Phone Yazan Daly MD Primary Care Provider [phone] Encounter Details Date Type Department Care Team (Late st Contact Info) Description 02/05/2025 Orders Only [facility] Medicine Specialties [address], [address] [place] [address] [place] [address] IBD (inflammatory bowel disease) Social History Tobacco [...] EST Appointment PAV S Endoscopy [address] [place] [address] Luly Robledo, DO [address] [facility] [address] [place] [address] 05/22/2025 8:00 AM EST Hospital Encounter PAV A OPERATING ROOM [address] [place] [address] Naseem [place] MD [address] [facility] [address] [place] [address] 05/22/2025 8:00 AM EST - 05/22/2025 9:40 AM EST Surgery PAV A OPERATING ROOM [address] [place] [address] Naseem [place] MD [id number] [place] [address] HEMORRHOIDECTOMY [[id number] (CPT )] 07/30/2025 11:40 AM EDT Office Visit [place] [facility] [address], [address] [place] [address] Luly Robledo, DO [id number] [place] [address] Scheduled Procedures Name Priority Associated Diagnoses Date/Ti me HEMORRHOIDECTOMY Grade IV hemorrhoids 05/22/2025 8:00 AM EST documented as of this encounter Procedures Procedure Name Priority Date/Time Associated Diagnosis Comments CALPROTECTIN, FECAL BY IMMUNOASSAY (SO) Routine 02/05/2025 7:41 AM EST IBD (inflammatory bowel disease) documented in this encounter Results * Calprotectin, Stool (02/05/2025 7:41 AM EST) Stool Stool specimen / Unknown us Juan Carlos Marks MD LAB BODY FLUIDS AND STOOLS ORDERABLES Final Result EXTERNAL LAB documented in this encounter Visit Diagnoses Diagnosis IBD (inflammatory bowel disease) Other and unspecified noninfectious gastroenteritis and colitis Grade IV hemorrhoids documented in this encounter Additional Health Concerns Assessment Noted Time PHQ-9 Depression Total Score: 0 01/30/20 25 11:52 AM EDT A fall risk assessment has been complete d for the patient 2025 11:52 AM EDT A Body Mass Index follow-up plan has been documented for the patient 02/07/2025 9:37 PM EST documented as of this encounter Care Teams Color Paste Mixing Supervisor Relationship Specialty Start Date End Date Yazan Daly MD [address] [place] [address] PCP - General 08/15/20 documented as of this encounter
--- OUTSIDE RECORDS SUMMARY | 2025-02-27 13:44 | XMS_ITS | Encounter Summary ---
Author Organization Healthcare Address [address] [place] [address] Care Team Providers Care Gang Ripsaw Operator Name Role Phone Yazan Daly MD Primary Care Provider [phone] Encounter Details Date Type Department Care Team (Latest Contact Info) Description 2025 Travel Social History Tobacco Use Types Packs/Day [...] as of this encounter Functional Status * Over the past 2 weeks, how often have you been bothered by any of the following problems? Question Answer Date of Assessment Author Little interest or pleasure in doing things Not at all 2025 11:52 AM EDT Mali Angulo Feeling down, depressed, or hopeless Not at all 2025 11:52 AM EDT Mali Angulo Patient Health Questionnaire -2 Score [...] Mali Marin documented as of this encounter Plan of Treatment Upcoming Encounters Date Type Department Care Team (Latest Contact Info) Description 05/10/2025 11:50 AM EST Appointment PAV S Endoscopy [address] [place] [address] Luly Robledo, DO [address] [place] [address] 05/22/2025 8:00 AM EST Hospital Encounter PAV A OPERATING ROOM [address] [place] [address] Naseem [place] MD [address] [facility] [address] [place] [address] 05/22/2025 8:00 AM EST - 05/22/2025 9:40 AM EST Surgery PAV A OPERATING ROOM [address] [place] [address] Naseem [place] MD [address] [facility] [address] [place] [address] HEMORRHOIDECTOMY [[id number] (CPT )] 07/30/2025 11:40 AM EDT Office Visit [place] [facility] Medicine [facility] [address] [place] [address] Luly Robledo, [address] [facility] [address] [place] [address] Scheduled Procedures Name Priority Associated [...] documented as of this encounter Care Teams Gang Ripsaw Operator Relationship Specialty Start Date End Date Yazan Daly MD [address] [place] [address] PCP - General 08/15/20 documented as of this encounter
--- OUTSIDE RECORDS SUMMARY | 2025-02-27 13:44 | XMS_ITS | Encounter Summary ---
Author Organization Healthcare Address [address] [place] [address] Care Team Providers Care Office Services Specialist Name Role Phone Yazan Daly MD Primary Care Provider [phone] Encounter Details Date Type Department Care Team (Late st Contact Info) Description 09/28/2024 Telephone [facility] [address] [place] [address] Marisol Mcintosh, PharmD None None Social History Tobacco Use Types Packs/Day Years [...] 2:53 PM EDT Faxed records request to [facility] - MR - P: [phone] - F: [phone] - Via [employer] on: 01/15/2025 at 254pm [...] RN - 12/07/2024 3:16 PM EDT Called [facility] Lab to follow up: - Lab [...] with standing infusion lab work orders at [facility] week 2 infusion, scheduled for 12/04/2024: - [facility] - F: [phone] - Via [employer] on 11/27/2024 at 1004am [...] dose. Specialty Medication: Entyvio Filling Pharmacy/SOC: [facility] * Telephone Encounter - Marisol Mcintosh PharmD - 11/02/2024 9:02 AM EDT Medicare B/Advantage Plan Authorization Information Specialty Medication: Silvana Diagnosis Code: K50.10 J-code/CPT code/S code: J3380/ 52169,31124/ S9379 Covered by Medicare B: Yes Does the diagnosis, dose, and frequency match an FDA approved dosing schedule? Yes, list prescribeddose/frequency: Entyvio 300mg IV on weeks 0,2,6 then every 8 weeks Site of Care: [facility] Does patient have an Advantage Plan? No. Will review in 12 months. * Telephone Encounter - Mary Green RN - 10/17/2024 11:13 AM EDT Awaiting additional information regarding pt's Entyvio therapy and new insurance plan with pt's [facility] at this time. * Telephone Encounter - Marisol Mcintosh PharmD - 09/28/2024 11:58 AM EDT [facility] Specialty Education Summary Patient was assessed via phone for initiation of drug therapy Entyvio for diagnosis Chron's. Plan for administration of therapy in infusion center and planned date of initiation: FE. Anticipated filling pharmacy is [facility]. Education and Counseling Medication specific education provided: [...] Mcintosh PharmD - 09/28/2024 11:53 AM EDT [facility] has received therapy plan for medication Entyvio. [facility] has contacted the patient and are in the process of completing the authorization for preferred site of care. documented in this encounter Plan of Treatment Upcoming Encounters Date Type Department Care Team (Latest Contact Info) Description 05/10/2025 11:50 AM EST Appointment PAV S Endoscopy [address] [place] [address] Luly Robledo, DO [address] [facility] [address] [place] [address] 05/22/2025 8:00 AM EST Hospital Encounter PAV A OPERATING ROOM [address] [place] [address] Naseem Madison MD [id number] [place] [address] 05/22/2025 8:00 AM EST - 05/22/2025 9:40 AM EST Surgery PAV A OPERATING ROOM [address] [place] [address] Naseem Madison MD [id number] [place] [address] HEMORRHOIDECTOMY [[id number] (CPT )] 07/30/2025 11:40 AM EDT Office Visit [place] [facility] Medicine [facility]ties [address] [place] [address] Luly Robledo, DO [address] [address] Scheduled Procedures Name Priority Associated Diagnoses Date/Ti [...] documented as of this encounter Care Teams Office Services Specialist Relationship Specialty Start Date End Date Yazan Daly MD [address] [place] [address] PCP - General 08/15/20 documented as of this encounter
--- OUTSIDE RECORDS SUMMARY | 2025-02-27 13:44 | XMS_ITS | Encounter Summary ---
Author Organization Healthcare Address [address] [place] [address] Care Team Providers Care Kinder Teacher Name Role Phone Yazan Daly MD Primary Care Provider [phone] Encounter Details Date Type Department Care Team (Late st Contact Info) Description 05/16/2024 Lab Requisition [facility] [address] [place] [address] Luly Robledo L, DO [address] [place] [address] Encounter for screening for malignant neoplasm of [...] Appointment [facility] [address] [place] [address] Luly Robledo DO [address] [facility] [address] [place] [address] 05/22/2025 8:00 AM EST Hospital Encounter [facility]ATING [facility] [address] [place] [address] Naseem Madison MD [id number] [place] [address] 05/22/2025 8:00 AM EST - 05/22/2025 9:40 AM EST Surgery [facility] [address] [place] [id number] Naseem Madison MD [address] [address] HEMORRHOIDECTOMY [12692 (CPT )] 07/30/2025 11:40 AM EDT Office Visit [facility] [address] [place] [phone] Luly Robledo DO [id number] [place] [address] Scheduled Procedures Name Priority Associated Diagnoses Date/Ti me HEMORRHOIDECTOMY Grade IV hemorrhoids 05/22/2025 8:00 AM EST documented as of this encounter Procedures Procedure Name Priority Date/Time Associated Diagnosis Comments SURGICAL PATHOLOGY EXAM Routine 05/16/2024 Encounter for screening for malignant neoplasm of colon documented in this encounter Results * Surgical Pathology Exam (05/16/2024) Case Report Surgical Pathology Case: [id number] Authorizing Provider: Luly Robledo DO Collected: 05/16/2024 Ordering Location: [facility] Lab Received: 05/16/2024 1150 Pathologist: Sumanth Gómez MD Specimens: A) - Colon, Right, right colon biopsy B) - Transverse Colon, transverse polyps C) - Transverse Colon, transverse polyp biopsy D) - Descending Colon, descending polyp E) - Colon, Left, left colon biopsy F) - Sigmoid Colon, rectosigmoid biopsy G) - Rectum, rectum biopsy 05/17/2024 12:35 PM [facility] Final Diagnosis A. LARGE INTESTINE, RIGHT COLON, [...] FOR GRANULOMAS OR DYSPLASIA 05/17/2024 12:35 PM [facility] at 1235 EST Clinical Information Z12.11 - Encounter for screening [...] and rectum biopsies 05/17/2024 12:35 PM EST [facility] Gross Description A. RIGHT COLON BIOPSY [...] in cassette C1. Cold Time: 0 Nasra Raúl Malone D. DESCENDING POLYP Received in formalin [...] 0 Nasra Malone 05/17/2024 12:35 PM EST [facility] Note: A resident was involved in the service. I attest I examined the relevant preparations for the specimens and confirmed the diagnosis or interpretation. 05/17/2024 12:35 PM EST [facility] Tissue Rectum structure / Unknown [...] / Unknown 05/16/2024 05/16/2024 11:50 AM EST Luly Robledo DO LAB PATHOLOGY ORDERABLES Fin al Result [facility] [address] [place] [address] documented in this encounter Visit Diagnoses Diagnosis Encounter for screening for malignant neoplasm of colon Grade IV hemorrhoids documented in this encounter [...] documented as of this encounter Care Teams Kinder Teacher Relationship Specialty Start Date End Date Yazan Daly MD [address] [place] [address] PCP - General 08/15/20 documented as of this encounter
--- OUTSIDE RECORDS SUMMARY | 2025-02-27 13:44 | XMS_ITS | Encounter Summary ---
Author Organization Healthcare Address [address] [place] [address] Care Team Providers Care Pain Management Specialist Name Role Phone Yazan Daly MD Primary Care Provider [phone] Encounter Details Date Type Department Care Team (Late st Contact Info) Description 10/02/2024 Results Follow-Up [facility] Medicine Specialties [address] [place] [address] Juan Carlos Marks MD [address] [place] [address] Social History Tobacco Use Types [...] problems? Question Answer Date of Assessment Author Cherelle interest or pleasure in doing things Not [...] EST Appointment [facility] [address] [place] [phone] Luly Robledo, DO [address] [facility] [address] [place] [address] 05/22/2025 8:00 AM EST Hospital Encounter [facility] [address] [place] [address] Naseem Madison MD [address] [facility] [address] [place] [address] 05/22/2025 8:00 AM EST - 05/22/2025 9:40 AM EST Surgery [facility] [address] [place] [address] Naseem Madison MD [id number] [place] [address] HEMORRHOIDECTOMY [[id number] (CPT )] 07/30/2025 11:40 AM EDT Office Visit [facility] [address] [place] [address] Luly Robledo, [address] [facility] [address] [place] [address] Scheduled Procedures Name Priority Associated Diagnoses Date/Ti [...] documented as of this encounter Care Teams Pain Management Specialist Relationship Specialty Start Date End Date Yazan Daly MD [address] [place] [address] PCP - General 08/15/20 documented as of this encounter
[2025-02-27 14:05] LABS: Albumin Level 4.1 g/dl (3.5-5.0); Chloride 108 mmol/L (98-107); Potassium 4.2 mmoL/L (3.5-5.1); Sodium 145 mmol/L (136-145)
[2025-02-27 14:08] LABS: Alanine Aminotransferase 53 U/L (12-78); Albumin/Globulin Ratio 1.5 (1.1-1.8); Alkaline Phosphatase 66 U/L (38-126); Anion Gap 15.2 mEq/L (5-15); Aspartate Amino Transferase 35 U/L (17-59); Bilirubin,Total 0.8 mg/dl (0.2-1.3); Blood Urea Nitrogen 16 mg/dl (9-20); Carbon Dioxide 26 mmol/L (22.0-30.0); Creatinine Clearance Estimated 92 mL/min (50-200); Creatinine,Serum 1.00 mg/dl (0.66-1.25); Estimated Glomerular Filt Rate 75 ml/min (>60); GFR (African American) 90 ML/MIN (>60); Globulin 2.7 g/dL (1.3-3.2); Total Protein,Serum 6.8 g/dl (6.3-8.2)
[2025-02-27 14:09] LABS: Calcium 8.9 mg/dl (8.4-10.2); Glucose 173 mg/dl (74-100)
[2025-02-27] MEDS: VEDOLIZUMAB 300 MG in 0.9 % SODIUM CHLORIDE 250 ML 500 MG IV (14:11)
[2025-02-27 14:14] LABS: Hematocrit 42.7 % (42.0-52.0); Hemoglobin 14.6 g/dL (14.1-18.0); Immature Granulocytes % 0.4 %; Mean Corpuscular HGB Conc 34.2 g/dL (31.8-35.4); Mean Corpuscular Hemoglobin 29.4 pg (27.0-31.2); Mean Corpuscular Volume 85.9 fl (80-94); Nucleated Red Blood Cells % 0 %; Platelet Count 206 K/mm3 (142-424); Red Blood Count 4.97 M/mm3 (4.60-6.20); Red Cell Distribution Width-SD 37.9 fL; White Blood Count 5.2 K/mm3 (4.8-10.8)
[2025-02-27 14:15] VITALS: BP 135/78; PULSE 76; RESP 20; O2SAT 98
[2025-02-27 14:55] VITALS: BP 133/73; PULSE 65
[2025-02-27 15:10] LABS: C-Reactive Protein 0.8 mg/L (0-4)
== END 2025-02-27 23:59 | disposition home or self-care (01) ==
LOC: INF 13:39
PROVIDERS: Internal Medicine Gastroenterology; PCP Family Medicine; Visit Provider Emergency Medicine
DX: K50.10 Crohn's disease of large intestine without complications (principal)
CPT/HCPCS: 80053; 85025; 86140; 96365; J3380; J7050